=== PATIENT | female | born 1955 | race Caucasian/White ===

== ENCOUNTER 2016-08-21 12:24 | Inpatient (IN) | payer OTHER ==
[~2016-08-21] VITALS: Ht 172.7 cm; Wt 104.2 kg
[2016-08-21] VITALS (8 sets, daily range): BP systolic 145–170; BP diastolic 88–98; BMI 32.0
--- NOTE | ~2016-08-21 | HEMODYNAMI ---
PATIENT:MARK CASTREJON MEDICAL RECORD: [id number] : 57 LOCATION: D.2229 ADMISSION DATE: 08/21/16 Generatedon:09/03/201610:41 Patient name: MARK CASTREJON Patient #: [id number] SSN: : 1955 Date of study: 09/03/2016 Page: Of Hemodynamic Procedure Report Patient Data Patient Demographics Procedure consent was obtained First Name: MARK Gender: Female Last Name: LUCÍA : 1955 Middle Initial: A Age: 60 year(s) Patient #: [id number] Race: Unknown Additional ID: [id number] Contact details Address: [address] [place] [address] State: [place] City: [place] Zip code: [address] Admission Admission Data Admission Date: 08/21/2016 Admission Time: 18:22 Room #: D.2229 Procedure Procedure Types Cath Procedure Peripheral Cath Diagnostic Procedure Miscellaneous Procedure Description Procedure Date Procedure Date: 09/03/2016 Procedure Start Time: 10:24 Procedure Staff Name Function Thaddeus Whalen MD Performing Physician Justa Lin RT Scrub Dannielle Tellez RN Nurse William Mccoy RT Monitor Procedure Data Cath Procedure Fluoroscopy Diagnostic fluoroscopy Total fluoroscopy Time: 0.5 time: 0.5 min min Diagnostic fluoroscopy Total fluoroscopy dose: 127 dose: 127 mGy mGy Contrast Material Contrast Material Type Amount (ml) Isovue 300 36 Procedure Medications Medication Administration Route Dosage Oxygen NC 3 l/min Heparin Flush Bag added to field 2 bags (1000units/500ml NS) Lidocaine 1% added to field 20 Versed I.V. 1 mg Fentanyl I.V. 50 mcg Versed I.V. 1 mg Fentanyl I.V. 50 mcg Hemodynamics Rest Heart Rate: 93 (bpm) Snapshots Pre Cath Intra NCS Post Cath Vital Signs Time Heart Resp SPO2 NIBP Rhythm Pain Sedation Rate (ipm) (%) (mmHg) Status Level (bpm) 10:00:10 95 15 94 112/77(97) NSR 0 (11) 10(A) , No pain 10:04:18 94 16 94 110/73(90) NSR 0 (11) 10(A) , No pain 10:08:26 94 15 92 102/68(87) NSR 0 (11) 10(A) , No pain 10:12:30 93 13 93 100/70(87) NSR 0 (11) 10(A) , No pain 10:16:33 93 15 93 104/69(88) NSR 0 (11) 10(A) , No pain 10:20:39 91 12 93 99/70(85) NSR 0 (11) 9(A) , No pain 10:24:41 95 16 94 105/76(89) NSR 0 (11) 10(A) , No pain 10:28:46 93 14 94 106/74(90) NSR 0 (11) 9(A) , No pain 10:32:50 91 13 94 99/70(85) NSR 0 (11) 9(A) , No pain 10:36:52 93 16 95 104/75(85) NSR 0 (11) 10(A) , No pain Medications Time Medication Route Dose Verified Delivered Reason Notes Effe ctiveness by by 10:11:01 Oxygen NC 3 Dannielle Dannielle Per l/min King JOSHUA Tellez RN protocol 10:11:25 Heparin Flush added 2 Dannielle Dannielle used for Bag to bags King JOSHUA Tellez filler room attendant (1000units/500ml field NS) 10:11:34 Lidocaine 1% added 20ml Dannielle Dannielle for local to vial King JOSHUA Tellez RN anesthetic field 10:16:14 Versed I.V. 1 mg Dannielle Dannielle for King JOSHUA Tellez RN sedation 10:16:24 Fentanyl I.V. 50 Dannielle Dannielle for mcg King JOSHUA Tellez RN sedation 10:26:21 Versed I.V. 1 mg Dannielle Dannielle for King JOSHUA Tellez RN sedation 10:26:25 Fentanyl I.V. 50 Dannielle Dannielle for mcg King JOSHUA Tellez RN sedation Procedure Log Time Note 9:52:37 William Mccoy RT (R) (CV) sent for patient. Start room use. 9:52:48 Time tracking: Regular hours 9:52:57 Plan of Care:Hemodynamics will remain stable., Cardiac rhythm will remain stable., Comfort level will be maintained., Respiratory function will remain adequate., Patient/ family verbilizes understanding of procedure., Procedure tolerated without complication., Recovers from procedure without complications.. 9:53:03 Patient received from Med/Surg to IR Alert and oriented. Tansferred to table in Supine position. 9:53:04 Correct patient and procedure confirmed by team. 9:53:05 ECG and BP/O2 sat monitors applied to patient. 9:53:06 Signed procedure consent form obtained from patient. 9:53:08 Full Disclosure recording started 9:53:09 - 9:53:12 H&P Date Dictated: 09/03/2016 Within 30 days and on chart.. 9:53:13 Pre-procedure instructions explained to patient. 9:53:13 Pre-op teaching completed and patient verbalized understanding. 9:53:14 Family unavailable. 9:53:16 Patient NPO since Midnight. 9:53:22 Is the patient allergic to Iodine/contrast media? No. 9:53:28 Use device set IR Diagnostic 9:53:29 Sterile Angiographic Pack opened to sterile field. 9:53:30 Bag Decanter opened to sterile field. 9:59:12 Vital chart was started 10:00:18 Patient diabetic? Yes. 10:00:25 ----Pre-sedation anethsthesia assessment.---- 10:00:28 Previous problem with sedation/anesthesia? No ? 10:00:34 ACC The patient was administered the following blood thiners within the last 24 hours: ACCLovenox 10:00:40 Snore? Yes 10:00:43 Sleep apnea? No 10:00:46 Deviated septum? No 10:00:47 Opens mouth fully? Yes 10:00:48 Sticks out tongue? Yes 10:00:51 Airway obstruction? No ? 10:00:54 Dentures? No ? 10:00:59 Patient pain scale 0/10 no pain. 10:01:06 IV patent on arrival in left forearm with 0.9% NaCl at [facility]. 10:01:12 Alarms reviewed by RStephen N. 10:01:15 Right groin area was prepped with chlora-prep and draped in sterile fashion 10:05:53 Dr Whalen in to see patient. 10:09:08 Baseline sample Acquired. 10:09:11 Rhythm: sinus rhythm 10:11:01 Oxygen 3 l/min NC was administered by Dannielle Tellez RN; Per protocol; 10:11:25 Heparin Flush Bag (1000units/500ml NS) 2 bags added to field was administered by Dannielle Tellez RN; used for procedure; 10::34 Lidocaine 1% 20ml vial added to field was administered by Dannielle Tellez RN; for local anesthetic; 10:15:47 Physician arrived 10:15:48 --------ALL STOP TIME OUT------ 10:15:49 Final Timeout: patient, procedure, and site verified with staff and physician. All members of the team are in agreement. 10:15:53 Right groin site verified by team. 10:15:57 Physical assessment completed. ASA score P 3 - A patient with severe systemic disease as per Thaddeus Whalen MD. 10:16:03 Sedation plan: IV Moderate Sedation Versed, Fentanyl, Lidocaine 10:16:14 Versed 1 mg I.V. was administered by Dannielle Tellez RN; for sedation; 10:16:24 Fentanyl 50 mcg I.V. was administered by Dannielle Tellez RN; for sedation; 10:24:06 Procedure started. 10:24:11 Local anesthetic to right femoral vein with Lidocaine 1% by Thaddeus Whalen MD.INITIAL ACCESS ONLY 10:24:32 Micropuncture VSI 4FR kit opened to sterile field. 10:24:33 Cook DOC .035 guide wire opened to sterile field. 10:24:33 Bard CIRO Vena Cava Filter opened to sterile field. 10:26:21 Versed 1 mg I.V. was administered by Dannielle Tellez RN; for sedation; 10:26:25 Fentanyl 50 mcg I.V. was administered by Dannielle Tellez RN; for sedation; 10:33:12 Ciro Femoral IVC filter was placed below renal veins. 10:33:21 Procedure ended.(Physican Out) 10:34:13 Fluoroscopy time 00.50 minutes. 10:34:17 Fluoroscopy dose: 127 mGy 10:34:17 Flurop Dose total: 127 10:34:22 Contrast amount:Isovue 300 36ml. 10:34:25 Sharps counted by scrub and verified by R.N. 10:34:28 Insertion/operative site no bleeding no hematoma. 10:34:37 Post-op/insertion site Right Femoral vein dressed using a 4 x 4 and Tegaderm. 10:37:47 Post right femoral vein:stable 10:38:01 Post-procedure physical assessment completed. ASA score P 3 - A patient with severe systemic disease as per Thaddeus Whalen MD. 10:38:04 Post procedure rhythm: unchanged. 10:38:05 Post procedure instruction explained to patient.Patient verbalizes understanding. 10:38:06 Procedure and supply charges have been captured, reviewed, submitted an d are correct. 10:40:23 Report given to Med/Surg. 10:40:26 Patient transfered to Med/Surg with Bed. 10:41:15 Vital chart was stopped Device Usage Item Name Manufacture Quantity Catalog Hospital Part Current [facility] l Lot# / Number Charge Number Stock Stock Serial# Code Sterile [place] 1 [id number] 5 Angiographic Health Pack Bag Decanter Microtek 1 [id number] 5 [employer] Micropuncture VSI VASCULAR 1 [id number] 5 VSI 4FR kit SOLUTIONS Cook DOC .035 [employer] 1 [id number] 5 [id number] guide wire Bard CIRO Bard 1 [id number] 5 Vena Cava Filter Signature Audit Ruth Stage Time Signature Unsigned Intra-Procedure 09/03/2016 William 10:41:12 AM Nadine RT (R) (CV) Signatures Monitor : William Signature : Nadine RT Date : Time : [place] [address]
--- NOTE | ~2016-08-21 | HEMODYNAMI ---
PATIENT:MARK CASTREJON MEDICAL RECORD: [id number] : 57 LOCATION:[place] [address] ADMISSION DATE: 08/21/16 Generatedon:08/22/201614:41 Patient name: MARK CASTREJON Patient #: [id number] SSN: : 1955 Date of study: 08/22/2016 Page: Of Hemodynamic Procedure Report Patient Data Patient Demographics Procedure consent was obtained First Name: MARK Gender: Female Last Name: LUCÍA : 1955 Middle Initial: A Age: 60 year(s) Patient #: [id number] Race: Unknown Additional ID: [id number] Contact details Address: [address] [place] [address] State: [place] City: [place] Zip code: [address] Admission Admission Data Admission Date: 08/21/2016 Admission Time: 18:22 Room #: [facility] Procedure Procedure Types Cath Procedure Peripheral Cath Diagnostic Procedure Miscellaneous Lumbar Puncture Procedure Description Procedure Date Procedure Date: 08/22/2016 Procedure Start Time: 14:24 Procedure Staff Name Function Jasmeet Mai MD Performing Physician William Mccoy RT Scrub Dannielle Tellez RN Nurse Dannielle Tellez RN Monitor Procedure Data Cath Procedure Fluoroscopy Diagnostic fluoroscopy Total fluoroscopy Time: 0.4 time: 0.4 min min Diagnostic fluoroscopy Total fluoroscopy dose: dose: 6.26 mGy 6.26 mGy Procedure Medications Medication Administration Route Dosage Versed I.V. 1 mg Fentanyl 50 mcg Versed I.V. 1 mg Hemodynamics Rest Snapshots Pre Cath Intra NCS Post Cath Vital Signs Time Heart Resp SPO2 NIBP (mmHg) Rhythm Pain Sedation Rate (ipm) (%) Status Level (bpm) 14:02:26 98 145/102(135) NSR 7 (11) , 9(A) Very intense 14:06:46 112/99(111) NSR 7 (11) , 9(A) Very intense 14:10:45 99 No Cuff NSR 8 (11) , 9(A) Utterly horrible 14:15:11 85 17 98 150/101(125) NSR 8 (11) , 9(A) Utterly horrible 14:19:37 84 16 98 144/91(117) NSR 3 (11) , 9(A) Tolerable 14:24:01 82 16 98 143/93(119) NSR 0 (11) , 9(A) No pain 14:28:24 85 16 99 147/100(126) NSR 0 (11) , 9(A) No pain 14:32:48 84 16 98 146/100(126) NSR 0 (11) , 9(A) No pain 14:37:12 82 16 98 137/92(113) NSR 0 (11) , 9(A) No pain Medications Time Medication Route Dose Verified Delivered Reason Notes Effectivene ss by by 14:16:12 Versed I.V. 1 mg Dannielle Dannielle for King JOSHUA Tellez RN sedation 14:16:42 Fentanyl 50 Dannielle Dannielle for mcg King JOSHUA Tellez RN sedation 14:21:31 Versed I.V. 1 mg Dannielle Dannielle for King JOSHUA Tellez RN sedation Procedure Log Time Note 13:37:55 Dannielle Tellez RN sent for patient. Start room use. 13:37:58 Time tracking: Regular hours 13:38:08 Plan of Care:Hemodynamics will remain stable., Cardiac rhythm will remain stable., Comfort level will be maintained., Respiratory function will remain adequate., Patient/ family verbilizes understanding of procedure., Procedure tolerated without complication., Recovers from procedure without complications.. 14:00:16 Patient received from ICU to Ir agitated and decreased mental status . Tansferred to table in Prone position. 14:00:57 Vital chart was started 14:00:58 Baseline sample Acquired. 14:01:02 Correct patient and procedure confirmed by team. 14:01:11 Signed procedure consent form obtained from spouse. 14:01:13 ECG and BP/O2 sat monitors applied to patient. 14:01:15 Full Disclosure recording started 14:01:16 - 14::44 Unable to provide pre-op teaching due to educational barrier. agitated state and decrease mental status 14::50 Family in waiting room. 14::52 Patient NPO since Midnight. 14:02:19 unable to get pre sedation answers from pt 14:02:36 IV patent on arrival in right antecubital with 0.9% NaCl at O. 14:14:50 Physician arrived 14::51 --------ALL STOP TIME OUT------ 14::52 Final Timeout: patient, procedure, and site verified with staff and physician. All members of the team are in agreement. 14:15:02 Lumbar site verified by team. 14:15:07 Physical assessment completed. ASA score P 3 - A patient with severe systemic disease as per Jasmeet Mai MD. 14:15:11 Sedation plan: IV Moderate Sedation Versed, Fentanyl 14:16:12 Versed 1 mg I.V. was given by Dannielle Tellez RN; for sedation; 14:16:42 Fentanyl 50 mcg was given by Dannielle Tellez RN; for sedation; 14:21:31 Versed 1 mg I.V. was given by Dannielle Tellez RN; for sedation; 14:23:38 Procedure started. 14:24:29 Local anesthetic to Lumbar area with Lidocaine 1% by Jasmeet Mai MD.INITIAL ACCESS ONLY 14:29:02 Opening pressure is 25 14:37:39 Procedure ended.(Physican Out) 14:38:51 Fluoroscopy time 00.40 minutes. 14:38:56 Fluoroscopy dose: 6.26 mGy 14:38:56 Flurop Dose total: 6.26 14:38:59 Sharps counted by scrub and verified by R.N. 14:39:21 Insertion/operative site no bleeding no hematoma. 14:39:31 Post Lumbar area:stable 14:39:40 bandaid applied 14:39:52 Post-procedure physical assessment completed. ASA score P 3 - A patient with severe systemic disease as per Jasmeet Mai MD. 14:39:56 Post procedure rhythm: unchanged. 14:40:04 Post procedure instruction explained to patient.Patient verbalizes understanding. 14:40:05 Procedure and supply charges have been captured, reviewed, submitted an d are correct. 14:40:09 Report given to ICU. 14:40:16 Patient transfered to ICU with Bed. 14:41:12 Vital chart was stopped Signature Audit [place] Stage Time Signature Unsigned Intra-Procedure 08/22/2016 William 2:41:10 PM [facility] RT (R) (CV) Signatures Monitor : Dannielle Tellez RN Signature : Date : Time : [facility] [address] [place] [address]
--- NOTE | ~2016-08-21 | HEMODYNAMI ---
PATIENT:MARK CASTREJON MEDICAL RECORD: [id number] : 57 LOCATION:D.MS [id number] ADMISSION DATE: 08/21/16 Generatedon:09/18/201612:32 Patient name: MARK CASTREJON Patient #: [id number] SSN: : 1955 Date of study: 09/18/2016 Page: Of Hemodynamic Procedure Report Patient Data Patient Demographics Procedure consent was obtained First Name: MARK Gender: Female Last Name: LUCÍA : 1955 Middle Initial: A Age: 60 year(s) Patient #: [id number] Race: Unknown Additional ID: [id number] Contact details [address]: [address] [place] [address] State: [place] City: [place] Zip code: [address] Admission Admission Data Admission Date: 08/21/2016 Admission Time: 18:22 Room #: D.2214 Procedure Procedure Types Cath Procedure Peripheral Cath Diagnostic Procedure Miscellaneous Procedure Description Procedure Date Procedure Date: 09/18/2016 Procedure Start Time: 11:35 Procedure Staff Name Function Ray Singh MD Performing Physician Justa Lin RT Scrub Dipti Nevarez RN Nurse William Mccoy RT Monitor Procedure Data Cath Procedure Fluoroscopy Diagnostic fluoroscopy Total fluoroscopy Time: time: 15.5 min 15.5 min Diagnostic fluoroscopy Total fluoroscopy dose: 537 dose: 537 mGy mGy Contrast Material Contrast Material Type Amount (ml) Isovue 300 162 Diagnostic catheters Device Type Used For End Catheter Placement Merit ULTRA BOLUS FLUSH 5Fr 90CM catheter Cook HN5 5F/100CM catheter Procedure Medications Medication Administration Route Dosage Versed I.V. 1 mg Fentanyl I.V. 50 mcg Hemodynamics Rest Heart Rate: 109 (bpm) Snapshots Pre Cath Intra NCS Post Cath Vital Signs Time Heart Resp SPO2 NIBP Rhythm Pain Sedation Rate (ipm) (%) (mmHg) Status Level (bpm) 11:25:35 109 24 94 88/52(67) NSR 0 (11) 10(A) , No pain 11:29:43 111 23 95 91/59(74) NSR 0 (11) 10(A) , No pain 11:33:53 110 24 98 89/53(66) NSR 0 (11) 10(A) , No pain 11:38:05 110 22 96 83/52(63) NSR 0 (11) 10(A) , No pain 11:42:13 105 18 98 93/53(71) NSR 0 (11) 10(A) , No pain 11:46:08 109 22 97 104/60(80) NSR 0 (11) 10(A) , No pain 11:50:24 107 19 96 86/51(68) NSR 0 (11) 10(A) , No pain 11:54:36 110 21 92 92/49(64) NSR 0 (11) 10(A) , No pain 11:58:44 111 24 97 83/69(78) NSR 0 (11) 10(A) , No pain 12:02:44 105 22 96 No Cuff NSR 0 (11) 10(A) , No pain 12:07:06 105 20 96 136/54(79) NSR 0 (11) 10(A) , No pain 12:12:05 105 23 97 Measuring NSR 0 (11) 10(A) , No pain 12:12:25 104 26 96 149/52(91) NSR 0 (11) 10(A) , No pain 12:16:52 104 19 96 135/53(84) NSR 0 (11) 10(A) , No pain 12:21:14 104 22 96 136/55(87) NSR 0 (11) 10(A) , No pain 12:25:38 104 24 97 150/55(84) NSR 0 (11) 10(A) , No pain 12:29:54 104 20 97 136/57(82) NSR 0 (11) 10(A) , No pain Medications Time Medication Route Dose Verified Delivered Reason Notes Effectivene ss by by 12:09:38 Fentanyl I.V. 50 Dipti Dipti for mcg Roque Roque sedation RN RN 12:09:52 Versed I.V. 1 mg Dipti Dipti for Roque Roque sedation RN glue mounter operator Log Time Note 11:11:12 William Mccoy RT (R) (CV) sent for patient. Start room use. 11:11:20 Time tracking: Regular hours 11:11:27 Patient received from Med/Surg to IR Alert and oriented. Tansferred to table in Supine position. 11:11:32 Correct patient and procedure confirmed by team. 11:11:32 ECG and BP/O2 sat monitors applied to patient. 11:11:34 Signed procedure consent form obtained from patient. 11:11:36 Full Disclosure recording started 11:11:36 - 11:11:40 H&P Date Dictated: 09/18/2016 Within 30 days and on chart.. 11:11:42 Pre-procedure instructions explained to patient. 11:11:42 Pre-op teaching completed and patient verbalized understanding. 11:11:44 Family in waiting room. 11:11:45 Patient NPO since Midnight. 11:11:50 Is patient on blood thinner?No 11:11:53 Patient diabetic? No. 11:11:53 - 11:11:54 ----Pre-sedation anethsthesia assessment.---- 11:12:01 Previous problem with sedation/anesthesia? No ? 11:12:02 Snore? Yes 11:12:05 Sleep apnea? Yes 11:12:06 Deviated septum? No 11:12:07 Opens mouth fully? Yes 11:12:08 Sticks out tongue? No 11:12:16 Airway obstruction? No ? 11:12:20 Dentures? No ? 11:22:59 Pre procedure: right dorsailis pedis pulse 1+ Palpable, but thready & weak; easily obliterated 11:23:03 Pre procedure: right posterior tibial pulse 1+ Palpable, but thready & weak; easily obliterated 11:23:10 Patient pain scale 0/10 no pain. 11:23:18 IV patent on arrival in right antecubital with 0.9% NaCl at [facility]. 11:23:24 Use device set IR Diagnostic 11:23:25 Sterile Angiographic Pack opened to sterile field. 11:23:25 Bag Decanter opened to sterile field. 11:23:26 Acist Manifold opened to sterile field. 11::27 Acist Syringe opened to sterile field. 11::27 Acist Hand Control opened to sterile field. 11:23:36 Sharps counted by scrub and verified by R.N. 11:23:38 Alarms reviewed by R. N. 11::41 Right groin area was prepped with chlora-prep and draped in sterile fashion 11:24:20 Baseline sample Acquired. 11:24:20 Vital chart was started 11:24:26 Rhythm: sinus tachycardia 11:34:15 Physician arrived 11:34:16 --------ALL STOP TIME OUT------ 11:34:17 Final Timeout: patient, procedure, and site verified with staff and physician. All members of the team are in agreement. 11:34:20 Right groin site verified by team. 11:34:28 Physical assessment completed. ASA score P 3 - A patient with severe systemic disease as per Ray Singh MD. 11:34:31 Sedation plan: IV Moderate Sedation Versed, Fentanyl 11:34:59 Procedure started. 11:35:02 Local anesthetic to right femoral artery with Lidocaine 1% by Ray Singh MD.INITIAL ACCESS ONLY 11:35:31 St Billy 5FR Sheath opened to sterile field. 11:35:31 Catchpoint Systems DOC .035 guide wire opened to sterile field. 11:35:32 PERCUTANEOUS ENTRY 19GA needle opened to sterile field. 11:35:32 TUBING, CONTRAST INJCTN HI PRES opened to sterile field. 11:35:36 A M_SOLUTION ULTRA BOLUS FLUSH 5Fr 90CM catheter was advanced over the wire and used for . 11:37:24 A Catchpoint Systems HN5 5F/100CM catheter was advanced over the wire and used for . 11:39:13 Terumo ANGLE 180L glide wire opened to sterile field. 11:39:21 Terumo TORQUE DEVICE PLASTIC .038 opened to sterile field. 11:43:22 Terumo ANGLED SS 260CM glide wire opened to sterile field. 11:51:23 Terumo 5FR Able Bodied Seaman H1 100CM glide catheter opened to sterile field. 11:59:50 Terumo 5FR ANGLED 100CM glide catheter opened to sterile field. 12:03:41 Terumo 5FR BARNES 2 100CM glide catheter opened to sterile field. 12:09:38 Fentanyl 50 mcg I.V. was administered by Dipti Nevarez RN; for sedation; 12:09:52 Versed 1 mg I.V. was administered by Dipti Nevarez RN; for sedation; 12:16:33 ANGIOSEAL-VIP PLUS 6 FR opened to sterile field. 12:16:54 Procedure ended.(Physican Out) 12:17:48 Fluoroscopy time 15.50 minutes. 12:18:25 Fluoroscopy dose: 537 mGy 12:18:25 Flurop Dose total: 537 12:21:32 Contrast amount:Isovue 300 162ml. 12:21:34 Sharps counted by scrub and verified by R.N. 12:21:37 Insertion/operative site no bleeding no hematoma. 12:21:42 Post-op/insertion site Right Femoral artery dressed using a 4 x 4 and Tegaderm. 12:21:45 Post right femoral artery:stable 12:21:47 Post Procedure Pulses reassessed and unchanged 12:21:50 Post-procedure physical assessment completed. ASA score P 3 - A patient with severe systemic disease as per Ray Singh MD. 12:21:52 Post procedure instruction explained to patient.Patient verbalizes understanding. 12:21:53 Procedure and supply charges have been captured, reviewed, submitted an d are correct. 12:31:30 Report given to Med/Surg. 12:31:33 Patient transfered to Med/Surg with Bed. 12:32:10 Vital chart was stopped Device Usage Item Name Manufacture Quantity Catalog Number Hospital Part Current Min imal Lot# / Charge Number Stock Stock Serial# Code Sterile Cardinal 1 [id number] [id number] 5 Angiographic Health Pack Bag Decanter Microtek 1 [id number] 98377 [id number] 5 Medical Inc. Acist Acist 1 77422 930194 378742 488840 5 Manifold Medical Systems Inc Acist Syringe Acist 1 06767 121896 421843 430434 20 Medical Systems Inc Acist Hand Acist 1 32531 180198 592120 856191 5 [address] Medical [address] Billy [address]FR St Billy 1 318233 920203 678543 5 [id number] Sheath Cook DOC .035 Cook Medical 1 [id number] 569041 494612 5 [id number] guide wire PERCUTANEOUS Cook Medical 1 [id number] 342954 049455 5 [id number] ENTRY 19GA needle TUBING, Merit 1 [id number] 649383 985724 334427 5 CONTRAST Medical INJCTN HI PRES Merit ULTRA Merit 1 [id number] 764989 143444 5 BOLUS FLUSH Medical 5Fr 90CM catheter Cook HN5 Cook Medical 1 [id number] 353075 538719 2 5F/100CM catheter Terumo ANGLE Terumo 1 [id number] 065109 029330 795922 5 180L glide wire Terumo TORQUE Landrum 1 TD01 125728 948508 628793 5 DEVICE Scientific PLASTIC .038 Terumo ANGLED Terumo 1 [id number] 736647 392342 917068 5 SS 260CM glide wire Terumo 5FR Landrum 1 CG513 514544 003670 5 Able Bodied Seaman H1 Scientific 100CM glide catheter Terumo 5FR Terumo 1 CG508 780442 95734 860644 4 ANGLED 100CM glide catheter Terumo 5FR Terumo 1 CG511 900240 263533 5 BARNES 2 100CM glide catheter ANGIOSEAL-[facility]IP St Billy 1 917821 335227 033437 5 [id number] PLUS 6 FR Signature Audit [place] Stage Time Signature Unsigned Intra-Procedure 09/18/2016 William 12:32:08 PM Shuffield RT (R) (CV) Signatures Monitor : William Signature : Nadine RT Date : Time : [facility] [address] [facility] [address]
[2016-08-21 13:37] LABS: BASOPHILS 0.1 % (0.0-2.0); EOSINOPHILS 3.2 % (0-7); HEMATOCRIT 37.1 % (36.0-48.0); HEMOGLOBIN 10.9 g/dL (12-16); IMMATURE GRANULOCYTES 0.3 % (0-5); LYMPHOCYTES 11.9 % (15-50); MCH 25.2 pg (26.0-34.0); MCHC 29.4 g/dL (31.0-37.0); MCV 85.7 fL (80.0-100.0); MEAN PLATELET VOLUME 9.3 fL (7.4-10.4); MONOCYTES 10.5 % (2-11); PLATELET COUNT 193 10x3/uL (130-400); RBC 4.33 10x6/uL (4.00-5.40); RDW 19.8 % (11.5-14.5); WBC 14.6 10x3/uL (4.8-10.8)
[2016-08-21 13:57] LABS: ALBUMIN 3.2 g/dL (3.4-5.0); ALKALINE PHOSPHATASE 53 U/L (46-116); ALT (SGPT) 26 U/L (10-68); BILIRUBIN - TOTAL 0.36 mg/dL (0.2-1.3); CALC OSMOLALITY 284 mosm/kg (275-300); CALCIUM 8.7 mg/dL (8.5-10.1); CHLORIDE - SERUM 105 mmol/L (98-107); CREATININE - SERUM 0.7 mg/dL (0.6-1.3); GLUCOSE 107 mg/dL (74-106); POTASSIUM - SERUM 3.8 mmol/L (3.5-5.1); PROTEIN - SERUM 7.4 g/dL (6.4-8.2); SODIUM 142 mmol/L (136-145); UREA NITROGEN 17 mg/dL (7-18); eGFR NON AFRICAN AMERICAN > 90 mL/min (90-120)
[2016-08-21 17:02] LABS: APPEARANCE CLEAR (CLEAR); BILIRUBIN NEGATIVE (NEGATIVE); COLOR YELLOW (YELLOW); GLUCOSE NEGATIVE (NEGATIVE); KETONE NEGATIVE (NEGATIVE); LEUKOCYTE ESTERASE NEGATIVE (NEGATIVE); NITRITE NEGATIVE (NEGATIVE); PROTEIN NEGATIVE (NEGATIVE)
[2016-08-21 17:03] LABS: BACTERIA NONE SEEN /hpf (NONE SEEN); EPITHELIAL CELLS NSEEN /hpf (0-5); RED CELLS - URINE 0-5 /hpf (0-5); WHITE CELLS - URINE NSEEN /hpf (0-5)
--- NOTE | 2016-08-21 20:45 | NUR ---
ASSISTED WITH CALL FOR HELP TO MRI. DR. PERAZA PRESENT AND ER NURSE PRESENT TO TAKE NEW ORDERS. PT TO ROOM 2207 PER ORDERS. FAMILY PRESENT TO REVIEW HOME MEDS. NEW ORDER TO TRANSFER TO CV 04. VITALS AT 2049 - 162/100, HR 92. FSBS 153. TRANSFERRED VIA BED TO CV 04 AT 2125. 2 OF PT FAMILY ROOMS EXPRESSED DISPLEASURE WITH "YOUR ER TAKING 6HR TO DO ANYTHING, AND NOW YOUR LOCKING US OUT OF ROOM". EXPLAINED ICU POLICY AND VISITATION SCHEDULE.
[2016-08-21] MEDS ORDERED: KLOR-CON 1010 MEQ PO (20:51)
[2016-08-21] MEDS ORDERED: PRINIVIL20 MG (20:54)
[2016-08-21] MEDS ORDERED: ULTRAM50 MG PO (20:55)
[2016-08-21] MEDS ORDERED: GLUCOPHAGE500 MG PO (20:56)
[2016-08-21] MEDS ORDERED: CALAN SR240 MG PO (20:57)
[2016-08-21] MEDS ORDERED: TOPROL XL100 MG PO (20:58)
[2016-08-21] MEDS ORDERED: OMEPRAZOLE20 M1 PO (20:59)
[2016-08-21] MEDS ORDERED: LYRICA150 MG PO (20:59)
[2016-08-21] MEDS ORDERED: LIPITOR20 MG PO (20:59)
[2016-08-21] MEDS ORDERED: RESTORIL15 MG PO (21:00)
[2016-08-21] MEDS ORDERED: LEXAPRO10 MG PO (21:00)
[2016-08-21] MEDS ORDERED: FERROUS SULFAT325 MG PO (21:01)
[2016-08-21] MEDS ORDERED: FOLIC ACID1 MG PO (21:01)
[2016-08-21] MEDS ORDERED: SKELAXIN800 MG PO (21:01)
[2016-08-21] MEDS ORDERED: PLAQUENIL200 MG PO (21:02)
[2016-08-21] MEDS ORDERED: PREDNISONE5 MG PO (21:02)
--- NOTE | 2016-08-21 21:35 | NUR ---
DR. WISE PAGED. 8701 PT STATUS, VITAL SIGNS, NEURO AND C/O HAAS REPORTED - NEW ORDERS REC'D. AT BS AND NOTIFIED.
--- NOTE | 2016-08-21 21:35 | NUR ---
PT ARRIVED FROM MRI AFTER SEIZURE. FAMILY REPORTS PT HAS NEVER HAD SEIZURE BEFORE. RIGHT HAND IV NOT PATENT. RESITED 20 G TO RIGHT AC BY [place]. HOME MEDS REVIEWED WITH FAMILY. TRANSFERRED PT TO CV-ICU PER ORDERS.
--- NOTE | 2016-08-21 21:50 | NUR ---
17F F/C INSERTED USING STERILE TECHNIQUE X 1 ATTEMPT. IMMEDIATE RETURN OF CLEAR YELLOW URINE. TUBING CLAMPED AT 350CC TO RELEASE IN 15 MIN. PT IMMEDIATELY STOPPED THE CONSTANT MOANING SHE HAD BEEN DOING IN EVIDENT RELIEF. SPECIMEN SENT TO LAB FOR ANALYSIS PER PROTOCOL
--- NOTE | 2016-08-21 22:29 | NUR ---
AT BS, ADMISSION HX AND PHYSICAL COMPLETE - SISTER ALLOWED BACK AND PASSWORD SET UP.
--- NOTE | 2016-08-21 22:30 | NUR ---
PT'S HISTORY OBTAINED FROM SPOUSE. UNCLEAR ABOUT RENAL STATUS. HE TOLD CONFUSING HISTORY OF RENAL PROBLEMS BUT WHEN QUESTIONED DIRECTLY DENIED YOSEF RENAL HISTORY. HE STATES DR. LAUREANO IS AWARE OF HER HISTORY. ALL OTHER HISTORY OBTAINED SATISFACTORILY. STATES PT HAS BEEN CONTINENT OF URINE UP UNTIL 3 DAYS AGO WHEN SHE BEGAN TO C/O TINGLING IN LEFT HAND AND AT THAT TIME BEGAN TO HAVE URGENCY INCONTINENCE. STATES PT BEGAN TO HAVE SYMPTOMS 3-4 DAYS AGO HE EXPLAINED REACHING TOWARD THINGS THAT WEREN'T THERE AND NOT SEEING THINGS DIRECTLY IN FRONT OF HER. STATES HE WAS ABSENT FROM THE HOME AT WORK FOR 48 HOURS AND WHEN ARRIVED AT HOME THIS MORNING PT WAS UNABLE TO MAKE BREAKFAST AND THEN UNABLE TO FEED SELF. STATES HE CALLED DR. LAUREANO AND WAS TOLD TO TAKE TO ER FOR CT SCAN. STATES THE SEIZURE PT HAD TONIGHT JUST AFTER HAVING A MRI WAS A NEW DEVELOPMENT FOR PT. SPOUSE ALSO STATES PT USES A CPAP MACHINE AT HOME AND TAKES NEBULIZER TREATMENTS. SPOUSE TO BRING CPAP MACHINE TO HOSPITAL IN AM. ALL BELONGINGS AND MEDICATIONS BAGGED AND SENT WITH SPOUSE.
[2016-08-21 23:10] LABS: APPEARANCE CLEAR (CLEAR); BILIRUBIN NEGATIVE (NEGATIVE); COLOR YELLOW (YELLOW); GLUCOSE NEGATIVE (NEGATIVE); KETONE NEGATIVE (NEGATIVE); LEUKOCYTE ESTERASE NEGATIVE (NEGATIVE); NITRITE NEGATIVE (NEGATIVE); PROTEIN TRACE mg/dL (NEGATIVE); SPECIFIC GRAVITY 1.015 (1.005-1.020); UROBILINOGEN NORMAL (NORMAL)
[2016-08-21 23:11] LABS: RED CELLS - URINE RARE /hpf (0-5); WHITE CELLS - URINE NSEEN /hpf (0-5)
--- NOTE | 2016-08-21 23:43 | NUR ---
SISTER AT BEDSIDE PT TALKING WITH HER. PT AWARE OF YEAR, , NAME SPOUSE NAME BUT CONFUSED ABOUT WHERE SHE IS AND WHY. DENIES PAIN WHEN ASKED PT TO OPEN EYES STATES OK REPEATEDLY BUT WOULD NOT OPEN. DID OPEN SPONTANEOUSLY WHEN SISTER SPOKE WITH HER
[2016-08-22] VITALS (27 sets, daily range): BP systolic 105–167; BP diastolic 68–120; BMI 32.0
--- NOTE | 2016-08-22 01:00 | NUR ---
NEURO STATUS UNCHANGED
--- NOTE | 2016-08-22 02:15 | NUR ---
PT GIVEN ZOFRAN DOCUMENTED ON AUG FOR NAUSEA. PT HAS HAD NO EMESIS. SISTERS ALLOWED BACK TO SEE PT WHILE SHE IS AWAKE. PT TALKED WITH THEM VERY LIMITED.
--- NOTE | 2016-08-22 04:00 | NUR ---
NEURO ASSESSMENT COMPLETED. PT INCREASED FRETFUL. REPEATED PROMPTINGS YIELD "OK" WITHOUT FOLLOWTHROUGH OF CORRECT RESPONSE FROM PT. NO OTHER CHANGES NOTED. PT DOES DENY PAIN WHEN ASKED. REPOSITIONED IN BED WITH EXTREMETIES ELEVATED AND HEELS FLOATED
--- NOTE | 2016-08-22 05:00 | NUR ---
PT REIDRECTABLE STATES NAMES MARK. WHEN ASKED WHY SHE WAS MOANING AND IF SHE WAS HURTING PT STATED "NO" (TO PAIN) AND "I DON'T KNOW" TO WHY SHE WAS MOANING. WHEN REPEATEDLY ASKED WHAT YEAR IT WAS PT FINALLY STATED "I CANT SAY THAT" SPEECH CLEAR WITH DIRECT QUESTIONS AND GARBLED WHEN MAONING AND MUMBLING.
--- NOTE | 2016-08-22 06:17 | NUR ---
NO SEIZURES THIS SHIFT
[2016-08-22 06:18] LABS: BASOPHILS 0.1 % (0.0-2.0); HEMATOCRIT 37.9 % (36.0-48.0); HEMOGLOBIN 11.5 g/dL (12-16); IMMATURE GRANULOCYTES 0.3 % (0-5); LYMPHOCYTES 10.3 % (15-50); MCH 25.5 pg (26.0-34.0); MCHC 30.3 g/dL (31.0-37.0); MEAN PLATELET VOLUME 9.2 fL (7.4-10.4); NEUTROPHILS 77.3 % (40-80); PLATELET COUNT 207 10x3/uL (130-400); RBC 4.51 10x6/uL (4.00-5.40); RDW 19.5 % (11.5-14.5); WBC 17.2 10x3/uL (4.8-10.8)
--- NOTE | 2016-08-22 06:49 | NUR ---
DR. WISE HERE. UPDATE GIVEN TO HIM. SPOUSE AT BEDSIDE TO ANSWER QUESTIONS FOR SPOUSE
[2016-08-22 06:50] LABS: ALBUMIN 3.3 g/dL (3.4-5.0); ALKALINE PHOSPHATASE 69 U/L (46-116); ALT (SGPT) 26 U/L (10-68); CALC OSMOLALITY 267 mosm/kg (275-300); CALCIUM 9.2 mg/dL (8.5-10.1); CHLORIDE - SERUM 95 mmol/L (98-107); CREATININE - SERUM 0.4 mg/dL (0.6-1.3); GLUCOSE 150 mg/dL (74-106); PROTEIN - SERUM 8.1 g/dL (6.4-8.2); SODIUM 133 mmol/L (136-145); UREA NITROGEN 9 mg/dL (7-18); eGFR NON AFRICAN AMERICAN > 90 mL/min (90-120)
[2016-08-22 10:55] LABS: APTT 31.7 SECONDS (22.8-39.4); INR 1.09 (0.85-1.17)
--- NOTE | 2016-08-22 11:43 | NUR ---
0730-RECIEVED PER FLOW SHEETDR RAISA AT BEDSIDE-DIRECTED TO GIVE TRAMADOL PO FOR CONTINUOUS CRYING AND MOANING-LARGE FAMILY AT BEDSIDE AND REQUESTING PT RA AND FIBROMALAGIA PAIN MEDICINE TO BE RETURNED -INFORMED SAME DUE TO MARKED NUERO CHANGES NOT SAFE AT THIS TIME-PT NOT ABLE TO STATE ANY WORDS-AVOIDS PUPIL CHECK WITH LIGHT-ATTEMPTING TO CLIMB OUT OF L SIDE OF BED ONLY 0800-FAMILY WITH EXCEPTION OF SENT OUT- REMAINS WITH PT TO PREVENT THE NEED FOR RESTRAINTS-R AC SALINE LOCKED
--- NOTE | 2016-08-22 11:55 | NUR ---
1030-LAB AT BEDSIDE-BLOOD CULTURES DRAWN-URINE CULTURE SENT
--- NOTE | 2016-08-22 11:56 | NUR ---
LIQUEFIED PETROLEUM GASFITTER AT [facility]-ATTEMPTING PLACE LEAD WIRES FOR EEG PROCEDURE-NOTED NIBP INCREASED TO 174/113-DR WISE NOTIFIED OF SAME-KBRN
--- NOTE | 2016-08-22 12:27 | NUR ---
CONTINUING TO ATTEMPT EEG-DR WISE MADE AWARE OF NIBP-ORDER REICEVED AND NOTED-KCL RIDER INFUSING ORDERED
--- NOTE | 2016-08-22 14:37 | NUR ---
1400-PT TO SPECIALS WITH O2 INFUSING AT 2L FLOOR COVERING PRINTER ASSISTANT--FAMILY ACCOMPANIED PT AND TEAM-REPORT CALLED FOR TRANSFER TO 2301
--- NOTE | 2016-08-22 15:12 | NUR ---
PATIENT HERE FROM [place]. SHE MOANS WHEN TOUCHED OR MOVED, DOES NOT OPEN HER EYES OR VERBALIZE WORDS. SHE WAS SET UP IN ROOM ON MONITORS, ELECTROLYTE REPLACEMENT OF POTASSIUM STILL IN PROGRESS PER PROTOCOL. ASSESSMENT COMPLETED. WILL MONITOR. JOSHUA BUSTAMANTE TO FIND THE FAMILY
[2016-08-22 15:38] LABS: GLUCOSE - CSF 76 MG/DL (40-75); PROTEIN - CSF 61 MG/DL (12-60)
[2016-08-22 15:42] LABS: APPEARANCE - CSF CLEAR
[2016-08-22 15:43] LABS: RBC - CSF 24 cmm (0-0)
--- NOTE | 2016-08-22 16:36 | NUR ---
PATIENTS B/P 155/120, HYDRALAZINE IV GIVEN PER PRN ORDER
--- NOTE | 2016-08-22 16:38 | NUR ---
CALL PLACED TO DR KLINE'S OFFICE TO GIVE THE RESULTS OF THE LUMBAR PUNCTURE. WILL WAIT FOR RETURN CALL.
--- NOTE | 2016-08-22 16:39 | NUR ---
SPOKE WITH DR KLINE, RESULTS GIVEN. HE STATED, "GOOD, THEN SHE IS NOT INFECTED". WOULD LIKE RESULTS OF CTA CALLED TO HIM IF RESULTED THIS EVENING.
--- NOTE | 2016-08-22 16:54 | NUR ---
CALL WAS PLACED TO DR KLINE SECONDARY TO PATIENT MOANING, AND FIDGETING IN THE BED. FAMILY CONCERNED, THEY DO NOT WANT HER TO GO THROUGHT ANOTHER NIGHT LIKE THIS. AFTER DISCUSSING WITH HIM, NEW ORDER RECEIVED FOR ONE TIME DOSE FOR DILAUDID AND HE REQUESTED TO BE NOTIFIED HOW SHE DOES.
--- NOTE | 2016-08-22 19:30 | NUR ---
REPORT RECEIVED AND CARE ASSUMED. LYING SUPINE IN BED WITH EYES CLOSED. NO DISTRESS NOTED AT THIS TIME. RIGHT ARM AC IV PATENT WITH NS AT 50 CC/HR. VITAL SIGN STABLE. O2 AT 3L/NC WITH O2 SAT @ 94%/ REBOLLEDO CATHETER PATENT WITH DEMARIO COLOR URINE. SEE ASSESSMENT FLOW SHEET FOR ALL DETAILS. WILL CONTINUE TO MONITOR.
--- NOTE | 2016-08-22 20:36 | NUR ---
SPOKE TO DR KLINE REGARDING CT REPORT. NEW ORDERS RECEIVED.
--- NOTE | 2016-08-22 22:25 | NUR ---
LAB HERE TO DRAW POTASSIUM.
--- NOTE | 2016-08-22 22:33 | NUR ---
MOANING OUT LOUDLY AND GETTING RESTLESS- DILAUDID 2 MG IVP GIVEN SLOWLY.
[2016-08-23] VITALS (24 sets, daily range): BP systolic 100–195; BP diastolic 69–131
--- NOTE | 2016-08-23 02:00 | NUR ---
REPOSITIONED ON RIGHT SIDE. NO DISTRESS NOTED.
[2016-08-23 04:10] LABS: BASOPHILS 0.1 % (0.0-2.0); EOSINOPHILS 0.1 % (0-7); HEMATOCRIT 42.4 % (36.0-48.0); HEMOGLOBIN 13.1 g/dL (12-16); IMMATURE GRANULOCYTES 0.3 % (0-5); LYMPHOCYTES 3.3 % (15-50); MCH 25.5 pg (26.0-34.0); MCHC 30.9 g/dL (31.0-37.0); MCV 82.5 fL (80.0-100.0); MEAN PLATELET VOLUME 9.2 fL (7.4-10.4); MONOCYTES 1.2 % (2-11); PLATELET COUNT 179 10x3/uL (130-400); RBC 5.14 10x6/uL (4.00-5.40); RDW 19.2 % (11.5-14.5); WBC 14.6 10x3/uL (4.8-10.8)
--- NOTE | 2016-08-23 04:10 | NUR ---
ASSISTED WINDER TENDER WITH DRAWING AM LABS. RESTLESS AND MOVING LEGS A LOT. DILAUDIS 2 MG IVP GIVEN FOR DISCOMFORT.
[2016-08-23 04:24] LABS: ALBUMIN 3.1 g/dL (3.4-5.0); ALKALINE PHOSPHATASE 71 U/L (46-116); ALT (SGPT) 25 U/L (10-68); CARBON DIOXIDE 26.4 mmol/L (21.0-32.0); CHLORIDE - SERUM 93 mmol/L (98-107); GLUCOSE 162 mg/dL (74-106); PROTEIN - SERUM 7.7 g/dL (6.4-8.2); SODIUM 131 mmol/L (136-145)
[2016-08-23 04:28] LABS: CALC OSMOLALITY 266 mosm/kg (275-300); CREATININE - SERUM 0.6 mg/dL (0.6-1.3); UREA NITROGEN 12 mg/dL (7-18); eGFR NON AFRICAN AMERICAN > 90 mL/min (90-120)
--- NOTE | 2016-08-23 05:56 | NUR ---
NO SEIZURE ACTIVITY THIS SHIFT.
--- NOTE | 2016-08-23 08:24 | NUR ---
OLD IV TO RIGHT AC NOTED LEAKING AND NO LONGER USABLE. NEW IV PLACED TO LEFT FOREARM, 20G. FLUSHES WELL. NO ACUTE DISTRESS NOTED. PT NOTED TO MOAN AND COUGH. PT DOES NOT FOLLOW COMMANDS. PT WILL SAY "OKAY" OCCASIONALLY WHEN SPOKEN TO. WILL CONTINUE PLAN OF CARE.
--- NOTE | 2016-08-23 09:31 | NUR ---
FAMILY AT BEDSIDE, UPDATE GIVEN. NOTED FAMILY STATES PT RHUMATOLOGIST IS MACRINA SANDOVAL FROM [facility] [employer]. DR COX IS AT BEDSIDE ALSO GIVING UPDATE TO PT FAMILY. NO ACUTE DISTRESS NOTED. WILL CONTINUE PLAN OF CARE.
--- NOTE | 2016-08-23 11:03 | NUR ---
LYING IN BED AT THIS TIEM. NO ACUTE DISTRESS NOTED. RESPIRATIONS AT STEADY AND UNLABORED RATE. AWAKENS EASILY WHEN STAFF STATES PT NAME. WILL CONTINUE PLAN OF CARE.
--- NOTE | 2016-08-23 11:54 | NUR ---
BP NOTED AT 193/114, PRN LABETOLOL ADMIN AT THIS TIME FOR HYPERTENSION. WILL CONTINUE PLAN OF CARE.
--- NOTE | 2016-08-23 12:25 | NUR ---
ATTEMPTED TO GIVE PT FOOD, NOTED SHE DRANK A FEW SIPS OF WATER AND SPAT OUT HER MASHED POTATOES. WILL CONTINUE TO OFFER SNACKS AND DRINKS.
--- NOTE | 2016-08-23 13:30 | NUR ---
LYING IN BED AT THIS TIME RESTING. NO ACUTE DISTRESS NOTED. RESPIRATIONS AT STEADY AND UNLABORED RATE. AWAKENS EASILY WHEN STAFF TOUCHES PT ARM. STILL NOT ANSWERING QUESTIONS. PT WILL GROAN WHEN AWAKE AND ONLY STATES THE WORDS WHAT AND OKAY WHEN SPOKEN TO. DOES NOT FOLLOW COMMANDS. PRN MEDS ADMIN FOR PAIN ORDERED. WILL CONTINUE PLAN OF CARE.
--- NOTE | 2016-08-23 13:45 | NUR ---
SPOKE WITH DR KLINE TO NOTIFY OF PT WANIGAN CLERK WHO IS MACRINA SANDOVAL FROM [employer]. WILL CONTINUE PLAN FO CARE.
--- NOTE | 2016-08-23 18:20 | NUR ---
FAMILY AT BEDSIDE AT THIS TIME. NO ACUTE DISTRESS NOTED. PT NOTED TO STATE A FAMILY MEMBER'S NAME AND TELL FAMILY "I'M FINE" WHEN FAMILY ASKED HOW SHE WAS DOING. PT NOT TALKING ANY MORE AT THIS MOMENT. WILL CONTINUE PLAN OF CARE.
--- NOTE | 2016-08-23 19:30 | NUR ---
REPORT RECEIVED AND CARE ASSUMED. MOANING OUT, BUT DENIES ANY DISCOMFORT. IV IN LEFT AC PATENT WITH NS AT TKO RATE, REBOLLEDO PATENT AAND DRAINING DEMARIO URINE. SEE ASSESSMENT FLOW SHEER FOR DETAILS.
--- NOTE | 2016-08-23 20:10 | NUR ---
LABETALOL 10 MG IVP GIVEN SLOWLY FOR B/P OF 192/110.
--- NOTE | 2016-08-23 20:56 | NUR ---
DILAUDID 2 MG IVP GIVEN SLOWLY FOR MOANING LOUDLY AND YELLING WHEN BEING TOUCHED.
[2016-08-24] VITALS (24 sets, daily range): BP systolic 156–202; BP diastolic 72–106
--- NOTE | 2016-08-24 00:35 | NUR ---
DILAUDID 2 MG IVP GIVEN SLOWLY FOR MOANING OUT AND SCREAMING WHEN BEING REPOSITIONED.
--- NOTE | 2016-08-24 00:51 | NUR ---
B/P 202/106 LABETALOL GIVEN IVP SLOWLY
--- NOTE | 2016-08-24 05:11 | NUR ---
LAB HERE TO DRAW BLOOD. PATIENT MOANING AND SCREAMING OUT LOUDLY. DILAUDID 2 MG IVP GIVEN SLOWLY.
[2016-08-24 05:12] LABS: ALBUMIN 3.1 g/dL (3.4-5.0); ALKALINE PHOSPHATASE 54 U/L (46-116); ALT (SGPT) 22 U/L (10-68); BILIRUBIN - TOTAL 0.54 mg/dL (0.2-1.3); CALCIUM 9.6 mg/dL (8.5-10.1); CARBON DIOXIDE 29.2 mmol/L (21.0-32.0); CHLORIDE - SERUM 102 mmol/L (98-107); CREATININE - SERUM 0.7 mg/dL (0.6-1.3); GLUCOSE 136 mg/dL (74-106); POTASSIUM - SERUM 4.1 mmol/L (3.5-5.1); PROTEIN - SERUM 7.3 g/dL (6.4-8.2); SODIUM 138 mmol/L (136-145); eGFR NON AFRICAN AMERICAN > 90 mL/min (90-120)
[2016-08-24 05:14] LABS: CALC OSMOLALITY 282 mosm/kg (275-300); UREA NITROGEN 26 mg/dL (7-18)
[2016-08-24 05:32] LABS: BASOPHILS 0.1 % (0.0-2.0); EOSINOPHILS 0.1 % (0-7); HEMATOCRIT 40.5 % (36.0-48.0); HEMOGLOBIN 12.5 g/dL (12-16); IMMATURE GRANULOCYTES 0.4 % (0-5); LYMPHOCYTES 10.8 % (15-50); MCH 25.4 pg (26.0-34.0); MCHC 30.9 g/dL (31.0-37.0); MCV 82.2 fL (80.0-100.0); MEAN PLATELET VOLUME 9.6 fL (7.4-10.4); MONOCYTES 12.5 % (2-11); NEUTROPHILS 76.1 % (40-80); PLATELET COUNT 217 10x3/uL (130-400); RBC 4.93 10x6/uL (4.00-5.40); RDW 19.9 % (11.5-14.5); WBC 16.8 10x3/uL (4.8-10.8)
--- NOTE | 2016-08-24 08:43 | NUR ---
PT ATE BREAKFAST WITH ASSIST FROM STAFF TO FEED PT. NOTED PT DRANK 120 ML ORANGE JUICE AND HALF OF OATMEAL. WHEN PT WAS GIVEN OPTIONS BETWEEN MILK AND ORANGE JUICE AND PT WAS ABLE TO STATE "ORANGE JUICE" WHEN ASKED PT IF SHE WANTED MORE TO EAT SHE STATED "YES" AND WHEN PT BEGAN TO FALL BACK TO SLEEP SHE WAS ASKED IF SHE WAS FINISHED EATING SHE STATED "YES." NO ACUTE DISTRESS NOTED. WILL CONTINUE PLAN OF CARE.
--- NOTE | 2016-08-24 09:03 | NUR ---
FAMILY AT BEDSIDE UPDATE GIVEN. PT ANSWERING SIMPLE QUESTIONS WITH FAMILY AND TURNING HEAD TO LOOK AT FAMILY MEMBERS WHEN SPOKEN TO. NO ACUTE DISTRESS NOTED. WILL CONTINUE PLAN OF CARE.
--- NOTE | 2016-08-24 09:03 | NUR ---
FAMILY AT BEDSIDE. UPDATE GIVEN.
--- NOTE | 2016-08-24 10:04 | NUR ---
SITTING UP IN BED DRINKING COFFEE, PER PT REQUEST, WITH ASSIST FROM STUDENT NURSE. NO ACUTE DISTRESS NOTED. WILL CONTINUE PLAN OF CARE.
--- NOTE | 2016-08-24 10:44 | NUR ---
NOTED PT STATING "NO,NO,NO,NO" WHILE IN ROOM WITH NO ONE ELSE PRESENT IN ROOM. WALKED INTO ROOM TO ASSESS SITUATION, NOTED COMPLAINT OF CRAMPING TO LEFT LEG. CALLED DR NGO TO NOTIFY, NEW ORDER FOR MAGNESIUM LEVEL NOW AND THEN IF LEVEL IS BELOW 1.8 TO GIVE ONE DOSE OF RIDERS X [address] ORDERS AT THIS TIME. WILL CONTINUE PLAN OF CARE.
--- NOTE | 2016-08-24 14:02 | NUR ---
ALTHOUGH BILATERAL WRIST RESTRAINTS WERE IN PLACE AND SECURE, PT PULLED REBOLLEDO OUT. WILL REPLACE REBOLLEDO AT THIS TIME.
--- NOTE | 2016-08-24 14:04 | NUR ---
LYING IN BED RESTING QUIETLY AT THIS TIME. NO ACUTE DISTRESS NOTED. AWAKENS EASILY WHENS STAFF WALKS IN ROOM. NO ACUTE DISTRESS NOTED. WILL CONTINUE PLAN OF CARE.
[2016-08-24 15:08] LABS: AFB SPECIMEN PROCESSING Not Indicated (())
--- NOTE | 2016-08-24 16:16 | NUR ---
PT IS MORE ALERT NOW. ABLE TO ANSWER SIMPLE QUESTIONS. APPROPIATE AND INNAPPROPIATE ANSWERING NOTED. PT ABLE TO STATE LOCATION, NAME, SITUATION, AND DATE, SOME INNAPROPIATE ANSWERING NOTED SUCH WHEN ASKED IF SHE KNEW WHO THE PRESIDENT WAS SHE STATED HER NAME. PT ABLE TO STATE IF SHE HAS ANY NEEDS. DENIES ANY NEEDS. STATES SHE IS COMFORTABLE AND DOES NOT WANT TO BE REPOSITIONED. NO ACUTE DISTRESS NOTED. WILL CONTINUE PLAN OF CARE.
--- NOTE | 2016-08-24 17:42 | NUR ---
LYING IN BED RESTING AT THIS TIME. NO ACUTE DISTRESS NOTED. DENIES ANY NEEDS. WILL CONTINUE PLAN OF CARE.
--- NOTE | 2016-08-24 18:19 | NUR ---
FAMILY AT BEDSIDE AT THIS TIME. NO ACUTE DISTRESS NOTED. PT ANSWERING SIMPLE QUESTIONS. WILL CONTINUE PLAN OF CARE.
--- NOTE | 2016-08-24 19:00 | NUR ---
REPORT RECIEVED, INITIAL ASSESSMENT COMPLETE, PLEASE SEE FLOW SHEETS FOR DETAILS. PT CONFUSED TO YEAR AND CITY, THUS TIME AND SITUATION. S1S2 AUSCULTATED, NSR NOTED AT REGULAR RATE. LUNG SOUNDS CLEAR ALL LOBES. BOWEL SOUNDS ACTIVE X4. LEFT FOREARM V WITH NS INFUSING AT KVO. BRUISING NOTED ON BILATERAL ARMS. SCD'S ON AND RUNNING. REBOLLEDO IN PLACE WITH CLOUDY YELLOW URINE NOTED. DENIES PAIN/NEEDS ATT. VSS, WILL CONTINUE TO MONITOR.
--- NOTE | 2016-08-24 21:00 | NUR ---
ORAL CARE AND TURNING PROVIDED. CORIN PAIN ATT. AT BEDSIDE, ANSWERED ALL QUESTIONS TO BEST OF ABILITY. NO OTHER QUESTIONS ATT. VSS, BED LOW AND LOCKED, CALL LIGHT IN REACH. WILL CONTINUE TO MONITOR.
--- NOTE | 2016-08-24 23:00 | NUR ---
REASSESSMENT COMPLETE, PLEASE SEE FLOW SHEETS FOR DETAILS. SHOWIG SIGNS OF PAIN/DISCOMFORT. PT WAS REPOSITIONED IN BED. LIGHTS TURNED OFF. BED LOW AND LOCKED, CALL LIGHT IN REACH. VSS, RR EVEN AND UNLABORED BUT SHALLOW. NSR NOTED. NO S&S OF ACUTE DISTRESS NOTED. WILL CONTINUE TO MONITOR.
[2016-08-25] VITALS (14 sets, daily range): BP systolic 124–198; BP diastolic 66–116
--- NOTE | 2016-08-25 01:00 | NUR ---
TURNING PROVIDED. OFFERED SIPS OF WATER. BED LOW AND LOCKED, CALL LIGHT IN REACH. VSS, WILL CONTINUE TO MONITOR.
--- NOTE | 2016-08-25 02:54 | NUR ---
REASSESSMENT COMPLETE, PLEASE SEE FLOW SHEETS FOR DETAILS. TURNING PROVIDED. VSS, BED LOW AND LOCKED, CALL LIGHT IN REACH. WILL CONTINUE TO MONITOR.
[2016-08-25 03:45] LABS: BASOPHILS 0 % (0.0-2.0); EOSINOPHILS 0 % (0-7); HEMATOCRIT 38.6 % (36.0-48.0); HEMOGLOBIN 11.9 g/dL (12-16); IMMATURE GRANULOCYTES 0.2 % (0-5); LYMPHOCYTES 10.2 % (15-50); MCH 25.6 pg (26.0-34.0); MCHC 30.8 g/dL (31.0-37.0); MCV 83.2 fL (80.0-100.0); MEAN PLATELET VOLUME 9.4 fL (7.4-10.4); MONOCYTES 13.2 % (2-11); NEUTROPHILS 76.4 % (40-80); PLATELET COUNT 231 10x3/uL (130-400); RBC 4.64 10x6/uL (4.00-5.40); RDW 20.2 % (11.5-14.5); WBC 13.8 10x3/uL (4.8-10.8)
[2016-08-25 04:05] LABS: ALBUMIN 2.8 g/dL (3.4-5.0); ALKALINE PHOSPHATASE 47 U/L (46-116); ALT (SGPT) 19 U/L (10-68); BILIRUBIN - TOTAL 0.53 mg/dL (0.2-1.3); CALC OSMOLALITY 287 mosm/kg (275-300); CALCIUM 8.7 mg/dL (8.5-10.1); CARBON DIOXIDE 32.5 mmol/L (21.0-32.0); CHLORIDE - SERUM 105 mmol/L (98-107); CREATININE - SERUM 0.5 mg/dL (0.6-1.3); GLUCOSE 119 mg/dL (74-106); PHENYTOIN (DILANTIN) 9.8 ug/mL (10.0-20.0); POTASSIUM - SERUM 3.4 mmol/L (3.5-5.1); PROTEIN - SERUM 7.1 g/dL (6.4-8.2); SODIUM 142 mmol/L (136-145); UREA NITROGEN 23 mg/dL (7-18); eGFR NON AFRICAN AMERICAN > 90 mL/min (90-120)
--- NOTE | 2016-08-25 05:00 | NUR ---
REPOSITIONED IN BED AND PROVIDED REBOLLEDO CARE. BED LOW AND LOCKED, CALL LIGHT IN REACH. VSS, WILL CONTINUE TO MONITOR
--- NOTE | 2016-08-25 06:27 | NUR ---
PT BP 208/111, GAVE HYDRALAZINE ORDERED. COMPLAINING OF PAIN 8/10 IN LEGS, CRAMPING, GAVE DILAUDID ORDERED. WILL CONTINUE TO MONITOR. BED LOW AND LOCKED, CALL LIGHT IN REACH.
--- NOTE | 2016-08-25 07:00 | NUR ---
REC'D REPORT FROM JOSHUA MIRANDA, RESUMED CARE, PATIENT AWAKE AND CONFUSED, O2 VIA NC AT 4L, SAT 99%, LEFT FA PIV SL, REBOLLEDO TO GRAVITY WITH CONCENTRATED TO BAG, SCD'S B/L, DENIES PAIN, FOLLOWS COMMANDS, WEAKNESS NOTED ON LEFT SIDE, UNABLE TO LIFT LEFT LEG, WIGGLES TOES, LEFT HAND WEAK LOG MANAGER, DOES NOT LIFT LEFT ARM, ASSESSMENT COMPLETE PER FLOWSHEET, VSS, KLC 10 MEQ INFUSING AT 100 CC/HR, DENIES PAIN, CALL LIGHT IN REACH, REPOSITIONED UP AND TO BACK,
--- NOTE | 2016-08-25 07:45 | NUR ---
BREAKFAST TRAUY TO BEDSIDE, ASSIST WITH SET UP AND FEEDING, BITES AND SIPS ONLY
--- NOTE | 2016-08-25 08:26 | EEG ---
PATIENT:MARK CASTREJON DATE OF SERVICE: 08/21/16 MEDICAL RECORD: [id number] DATE OF : 57 LOCATION:D.230 D.ICU ADMISSION DATE: 08/21/16 REFERRING PHYSICIAN: INTERPRETING PHYSICIAN: CARLOS KLINE MD DATE OF SERVICE: 08/22/2016 REFERRED BY: Myself as an inpatient in room 2301. ELECTROENCEPHALOGRAM NUMBER: [id number]. DATE OF EXAMINATION: 08/22/2016 at 11:55 a.m. TECHNICAL DATA: This electroencephalographic recording consists of approximately 20 minutes of data collection utilizing the international 10/20 system of electrode placement and both referential and non-referential montages. Sixteen channels of electrocerebral recording are accompanied by a 17th channel dedicated to the electrocardiographic rhythm and 2 channels of electromyographic recording. Recording is performed in the lethargic state utilizing activation by photic stimulation as well as verbal and tactile stimulation. ELECTROENCEPHALOGRAPHIC DATA: The entirety of the recorded electrocerebral activity is performed in the lethargic state. The patient is confused and uncooperative for examination continuously moving in bed. Electromyographic and movement artifacts obscure nearly the entirety of the recorded electrocerebral activity. Rapid eye movements are occasionally seen. A posterior dominant background has not developed. Electrocerebral activity is observed through the artifact reveals a mixture of slow wave activities ranging from 1-5 Hz that are generalized symmetric and irregular in morphology. There is some intermixed faster activity in the range of 15-20 Hz. No epileptiform discharges are seen. No clinical or electrocerebral seizures are identified. INTERPRETATION: Continuous slow, generalized (lethargy). This electroencephalographic recording is indicative of a moderate diffuse encephalopathy. The study is of suboptimal quality secondary to patient's lack of ability to cooperate and continuous movement throughout the study. No clinical or electrocerebral seizures are identified. TRANSINT:[id number] Voice Confirmation ID: [id number] DOCUMENT ID: [id number] CARLOS KLINE MD at 0826 CC: [id number] DICTATION DATE: 08/23/16 0736 INSPECTOR SHELLS: 08/23/16 1233 [place] [address]
--- NOTE | 2016-08-25 09:07 | NUR ---
Nutrition follow-up: Diet: low sodium PO intake ~25% of meals Pt is more alert today per nursing lab reviewed Wt: 210# Will provide food choices and honor food preferences. RDN following.
--- NOTE | 2016-08-25 11:00 | NUR ---
NO ACUTE CHANGE FROM PREVIOUS ASSESSMENT, VSS, REPOSITIONED TO LEFT SIDE WITH PILLOW PROPPED TO BACK AND HEELS FLOATED
--- NOTE | 2016-08-25 11:50 | NUR ---
LUNCH TRAY TO BEDSIDE, ASSIST WITH SETUP AN EATING, 50% OF MEAL EATEN WITHOUT DIFFICULTY
--- NOTE | 2016-08-25 12:00 | NUR ---
FAMILY AND FRIENDS AT BEDSIDE, STATUS UPDATED, NO NEEDS AT THIS TIME
--- NOTE | 2016-08-25 15:00 | NUR ---
ASSESSMENT COMPLETE, MORE AWAKE, SPEECH CLEAR, CONTINUES TO HAVE TROUBLE WITH VISION, WEARS GLASSES, PUPILS EQUAL AND REACTIVE, NO ACCOMMODATION, SEE'S 5 WHEN FOUR FINGERS ARE SHOWN, STATES VISION IS NOT BLURRY, DOES NOT FEEL DIZZY, DOES NOT TRACK WITH VISION, NO OTHER ACUTE CHANGE FROM PREVIOUS ASSESSMENT
--- NOTE | 2016-08-25 16:25 | NUR ---
Patient Name: MARK CASTREJON Admission Status: ER Accout number: [id number] Admission Date: 08-21-2016 : 1955 Admission Diagnosis: Attending: JACQUE Current LOS: 4 Anticipated DC Date: Planned Disposition: Primary Insurance: UNINSURED DISCOUNT PLAN Discharge Planning Comments: CM ATTEMPTED TO MEET WITH PT FOR INITIAL ASSESSMENT OF DISCHARGE NEEDS. PT WAS REPORTED TO BE CONFUSED BY NURSING AND WAS SLEEPING AT APPROXIMATELY 1320 HOURS. NO FAMILY WAS PRESENT. CM TO ATTEMPT ASSESSMENT OF PT AT A LATER TIME. Track Layer: Musa Francisco
--- NOTE | 2016-08-25 17:30 | NUR ---
DINNER TRAY TO BEDSIDE, ASSIST WITHN SET UP AND EATING, 30% OF MEAL EATEN
--- NOTE | 2016-08-25 18:18 | NUR ---
REPORT CALLED TO JOSHUA SOTO ON [facility] FOR PENDING TRANSFER
--- NOTE | 2016-08-26 03:32 | NUR ---
PATIENT HAS BEEN SLEEPING THE INTIRE NIGHT. AROUSES TO VOICE. SPEECH IS CLEAR ALTHOUGH SHE IS ONLY SAYING YES AND NO TO ME. ASKED ME WHAT HER BP WAS AND IT WAS CLEAR. ALERT AND ORIENTED. INSTUCTED TO CALL IF NEEDED ANYTHING. PATIENT VERBALIZED UNDERSTANDING.
[2016-08-26 04:00] VITALS: BP 186/92
[2016-08-26 05:37] LABS: BASOPHILS 0 % (0.0-2.0); EOSINOPHILS 0.2 % (0-7); HEMATOCRIT 37.2 % (36.0-48.0); HEMOGLOBIN 11.3 g/dL (12-16); IMMATURE GRANULOCYTES 0.3 % (0-5); LYMPHOCYTES 13.2 % (15-50); MCH 25.5 pg (26.0-34.0); MCHC 30.4 g/dL (31.0-37.0); MEAN PLATELET VOLUME 9.2 fL (7.4-10.4); MONOCYTES 10.7 % (2-11); NEUTROPHILS 75.6 % (40-80); PLATELET COUNT 209 10x3/uL (130-400); RBC 4.43 10x6/uL (4.00-5.40); RDW 20.1 % (11.5-14.5); WBC 15.2 10x3/uL (4.8-10.8)
--- NOTE | 2016-08-26 06:15 | NUR ---
PATIENT IS RESTING COMFORTABLY IN BED WILL AROUSE TO VOICE. DENIED NEEDS AT THIS TIME INSTRUCTED TO CALL IF NEEDED ANYTHING PATIENT VERBALED UNDERSTANDING. BED LOW, LOCKED, CALL LIGHT IN REACH.
[2016-08-26 06:20] LABS: ALBUMIN 2.5 g/dL (3.4-5.0); ALKALINE PHOSPHATASE 45 U/L (46-116); ALT (SGPT) 18 U/L (10-68); BILIRUBIN - TOTAL 0.52 mg/dL (0.2-1.3); CALC OSMOLALITY 280 mosm/kg (275-300); CALCIUM 8.9 mg/dL (8.5-10.1); CARBON DIOXIDE 31.9 mmol/L (21.0-32.0); CHLORIDE - SERUM 104 mmol/L (98-107); CREATININE - SERUM 0.5 mg/dL (0.6-1.3); GLUCOSE 81 mg/dL (74-106); POTASSIUM - SERUM 3.9 mmol/L (3.5-5.1); PROTEIN - SERUM 6.2 g/dL (6.4-8.2); SODIUM 140 mmol/L (136-145); UREA NITROGEN 21 mg/dL (7-18); eGFR NON AFRICAN AMERICAN > 90 mL/min (90-120)
--- NOTE | 2016-08-26 07:00 | NUR ---
REPORT RECIEVED ASSUMED CARE. PATIENT IN BED WITH IV INTACT. NO COMPLAINTS AT THIS TIME. CALL LIGHT WITHIN REACH.
[2016-08-26 08:13] VITALS: BP 189/75
--- NOTE | 2016-08-26 08:30 | NUR ---
ASSESSMENT COMPLETE, VS STABLE. PATIENT IN BED WITH IV INTACT. NO COMPLAINTS. CALL LIGHT WITHIN REACH. BSCDS PLACED ON BY HOLLY LEWIS.
[2016-08-26 12:18] VITALS: BP 158/89
[2016-08-26 15:52] VITALS: BP 161/84
--- NOTE | 2016-08-26 17:30 | NUR ---
PATIENT IV LEAKING. REMOVED BY STUDENTS AND INSTRUCTOR. STUDENTS AND INSTRUCTOR TRIED TO RESTICK X 2 WITH NO SUCCESS AT THIS TIME. WILL TRY AGAIN IN A LITTLE WHILE. PATIENT HAS NO COMPLAINTS. CALL LIGHT WITHIN REACH.
[2016-08-26 19:00] VITALS: BP 181/99
[2016-08-26 19:11] LABS: HSV 1 DNA (PCR) Negative (Negative); HSV 2 DNA (PCR) Negative (Negative)
[2016-08-27 04:00] VITALS: BP 194/96
[2016-08-27 05:25] LABS: BASOPHILS 0 % (0.0-2.0); EOSINOPHILS 0.2 % (0-7); HEMOGLOBIN 11.7 g/dL (12-16); IMMATURE GRANULOCYTES 0.3 % (0-5); LYMPHOCYTES 11.1 % (15-50); MCH 25.8 pg (26.0-34.0); MCHC 30.8 g/dL (31.0-37.0); MCV 83.9 fL (80.0-100.0); MEAN PLATELET VOLUME 9.3 fL (7.4-10.4); MONOCYTES 9.5 % (2-11); NEUTROPHILS 78.9 % (40-80); PLATELET COUNT 194 10x3/uL (130-400); RBC 4.53 10x6/uL (4.00-5.40); RDW 19.8 % (11.5-14.5); WBC 16.4 10x3/uL (4.8-10.8)
[2016-08-27 05:51] LABS: ALBUMIN 2.4 g/dL (3.4-5.0); ALKALINE PHOSPHATASE 47 U/L (46-116); ALT (SGPT) 20 U/L (10-68); BILIRUBIN - TOTAL 0.46 mg/dL (0.2-1.3); CALC OSMOLALITY 283 mosm/kg (275-300); CALCIUM 8.9 mg/dL (8.5-10.1); CHLORIDE - SERUM 106 mmol/L (98-107); CREATININE - SERUM 0.5 mg/dL (0.6-1.3); GLUCOSE 81 mg/dL (74-106); PROTEIN - SERUM 6.3 g/dL (6.4-8.2); SODIUM 142 mmol/L (136-145); UREA NITROGEN 19 mg/dL (7-18); eGFR NON AFRICAN AMERICAN > 90 mL/min (90-120)
[2016-08-27 05:54] LABS: POTASSIUM - SERUM 3.3 mmol/L (3.5-5.1)
--- NOTE | 2016-08-27 08:40 | NUR ---
PATIENT IS AWAKE, ALERT AND ORIENTED X'S 4. RESPIRATIONS ARE EVEN AND UNLABORED. NO SIGNS OF DISTRESS NOTED. BED IN LOWEST POSITION, CALL LIGHT IN REACH. BED RAILS UP X'S 2.
--- NOTE | 2016-08-27 08:41 | NUR ---
PT RESTING IN BED, FAMILY AT BEDSIDE, ASSESSMENT COMPLETE, DENIES NEEDS, CALL LIGHT IN REACH, BED LOWEST POSITION, SIDE RAILS X2, WILL CONITNUE TO MONITOR
[2016-08-27 08:50] VITALS: BP 184/87
[2016-08-27 08:55] LABS: ERYTHROCYTE SEDIMENTATION RATE 35 mm/hr (0-30)
[2016-08-27 11:19] LABS: FUNGUS STAIN Final report (())
[2016-08-27 12:48] VITALS: BP 167/81
[2016-08-27 15:26] LABS: IGGS - IGG INDEX CSF 0.6 (0.0-0.7); IGGS - IGG SYNTHESIS RATE CSF 6.9 mg/day (-9.9 TO +3.3)
[2016-08-27 16:34] VITALS: BP 162/79
[2016-08-27 19:00] VITALS: BP 165/86
[2016-08-28 04:00] VITALS: BP 191/84
[2016-08-28 05:10] LABS: BASOPHILS 0.1 % (0.0-2.0); EOSINOPHILS 0.5 % (0-7); HEMATOCRIT 36.8 % (36.0-48.0); HEMOGLOBIN 11.3 g/dL (12-16); IMMATURE GRANULOCYTES 0.3 % (0-5); LYMPHOCYTES 13.7 % (15-50); MCH 25.4 pg (26.0-34.0); MCHC 30.7 g/dL (31.0-37.0); MCV 82.7 fL (80.0-100.0); MONOCYTES 8.7 % (2-11); NEUTROPHILS 76.7 % (40-80); PLATELET COUNT 194 10x3/uL (130-400); RBC 4.45 10x6/uL (4.00-5.40); WBC 19.2 10x3/uL (4.8-10.8)
[2016-08-28 05:41] LABS: CALC OSMOLALITY 283 mosm/kg (275-300); CALCIUM 8.9 mg/dL (8.5-10.1); CARBON DIOXIDE 28.9 mmol/L (21.0-32.0); CHLORIDE - SERUM 105 mmol/L (98-107); CREATININE - SERUM 0.5 mg/dL (0.6-1.3); GLUCOSE 85 mg/dL (74-106); POTASSIUM - SERUM 3.5 mmol/L (3.5-5.1); SODIUM 142 mmol/L (136-145); UREA NITROGEN 19 mg/dL (7-18); eGFR NON AFRICAN AMERICAN > 90 mL/min (90-120)
--- NOTE | 2016-08-28 07:45 | NUR ---
IV SITED TO RIGHT FOREARM X1 STCK USING ASEPTIC TECH 22G
--- NOTE | 2016-08-28 07:55 | NUR ---
PATIENT RECEIVED ALERT IN HIGH ROGERS POSITION. RESPIRATIONS EVEN AND UNLABORED. GUEST AT BEDSIDE. SIDE RAILS UP X2. BED IN LOW POSITION. CALL LIGHT IN REACH.
--- NOTE | 2016-08-28 08:14 | NUR ---
PT RECIEVED ON MORNING ROUNDS ASSESSMENT COMPLETE AWAKE AND ALERT ORINETD X 3 LUNGS WITH INSPIRATORY WHEEZE NOTED TO UPPER LOBES BILATERALLY. BSA X 4 QUADS. MOVES ALL EXTREMTIES TO COMMAND HAS NOTED WEAKNESS TO LEFT UPPER AND LOWER EXTREMTIES. CALLLIGHT INREACH SIDE RAILS UP X 2 PT HAD HTN THIS AM TREATED WITH PRN LABATELOL CURRENT B/P 185/82 20 MIN POST TREATMENT WILL MONITOR.
[2016-08-28 08:47] VITALS: BP 185/92
--- NOTE | 2016-08-28 09:01 | NUR ---
Patient Name: MARK CASTREJON Admission Status: ER Accout number: [id number] Admission Date: 08-21-2016 : 1955 Admission Diagnosis:HEADACHE Attending: JACQUE Current LOS: 7 Anticipated DC Date: 09-01-2016 Planned Disposition: [facility] Primary Insurance: [employer] Discharge Planning Comments: CM MET WITH PATIENT AND SPOUSE (JOAO) REGARDING D/C NEEDS AND PLANS. SPOUSE STATED THEY HAVE 4 STEPS W/RAILS TO ENTER HOME AND NO STAIRS INSIDE. PATIENT AND SPOUSE ARE INTERESTED IN HOME HEALTH BUT HE WILL NOT BE HOME ALL THE TIME. CM SPOKE WITH PATIENT REGARDING IP REHAB AND SHE WAS VERY OPEN TO IT AND TALK WITH ABOUT IT. (HE REC. PHONE CALL WHILE CM WAS IN ROOM AND DID NOT HEAR ABOUT SNF) CM WILL CHECK BACK WITH THEM TODAY AND SEE IF THEY WANT SNF. PATIENTS PCP IS DR. LAUREANO AND PHARMACY IS [facility]. PATIENT HAS A WALKER, CANE, LIFT CHAIR, SHOWER CHAIR, BS COMMODE, AND GLUCOMETER AT HOME. PATIENT DID SIGN THE NORA WITH [employer] IF THEY COULD WORK SOMETHING OUT FOR HER SAFETY AT HOME WITH GONE. CM WILL CONTINUE TO FOLLOW PATIENT WITH D/C NEEDS AND PLANS. PCP DR. SRIDEVI PADILLA [facility]- [phone] JOAO (SPOUSE) [phone] Switch Crew Supervisor: Kayla Lan Is the patient Alert and Oriented? Yes 0 * How many steps to enter\exit or inside your home? 4 W/RAILS 0 * PCP DR. LAUREANO 0 * Pharmacy [facility] 0 * Preadmission Environment Home with Family 0 * ADLs Independent 0 * Equipment Bedside Commode Cane Glucometer Shower Chair Walker Wheelchair 0 * List name and contact numbers for known caregivers / representatives who currently or will assist patient after discharge: JOAO (SPOUSE) [phone] 0 * Community resources currently utilized None 0 * Additional services required to return to the preadmission environment? Yes 0 * Can the patient safely return to the preadmission environment? Yes 0 * Has this patient been hospitalized within the prior 30 days at any hospital? No 0 Grand Total: 0
--- NOTE | 2016-08-28 12:35 | NUR ---
NUTRITION MONITORING & EVAL PT TOLERATING AHA DIET. 75% INTAKE BREAKFAST. WILL CONTINUE TO PROVIDE DIET, MONITOR PT PROGRESS. RD FOLLOWING
[2016-08-28 13:06] VITALS: BP 92/60
[2016-08-28 16:23] VITALS: BP 103/65
--- NOTE | 2016-08-28 16:44 | NUR ---
CM REASSESSMENT NOTE: [facility] AND THEY ARE WAITING ON THE OT NOTE. CM WILL SEND THE NOTE TOMORROW WHEN AVAILABLE.
[2016-08-28 20:00] VITALS: BP 154/71
--- NOTE | 2016-08-28 20:00 | NUR ---
PATIENT IN BED VISITING WITH . AAOX4. RR EVEN AND UNLABORED. O2 @ 2L VIA NC. 0 S/S OF DISTRESS. DENIES PAIN AT THIS TIME. IV TO RIGHT FA S/L WITH NO REDNESS OR SWELLING. REBOLLEDO SECURED WITH STATLOCK AND DRAINING TO GRAVITY. BOX ALARM ON AND ATTACHED TO PATIENT. SRX2. BED LOW. CALL LIGHT WITHIN REACH.
--- NOTE | 2016-08-28 22:45 | NUR ---
ASSESSMENT COMPLETE. NIGHTTIME MEDS GIVEN PER ORDER. REPOSITIONED PATIENT.
[2016-08-29] VITALS (7 sets, daily range): BP systolic 123–176; BP diastolic 73–95
--- NOTE | 2016-08-29 00:30 | NUR ---
ULTRACET GIVEN FOR PAIN IS LEGS OF A 5/10.
[2016-08-29 04:48] LABS: BASOPHILS 0 % (0.0-2.0); EOSINOPHILS 0.1 % (0-7); HEMATOCRIT 36.1 % (36.0-48.0); HEMOGLOBIN 11.1 g/dL (12-16); IMMATURE GRANULOCYTES 0.3 % (0-5); LYMPHOCYTES 7.3 % (15-50); MCH 25.3 pg (26.0-34.0); MCHC 30.7 g/dL (31.0-37.0); MCV 82.4 fL (80.0-100.0); MEAN PLATELET VOLUME 9.4 fL (7.4-10.4); MONOCYTES 7.7 % (2-11); NEUTROPHILS 84.6 % (40-80); PLATELET COUNT 206 10x3/uL (130-400); RBC 4.38 10x6/uL (4.00-5.40); RDW 20.3 % (11.5-14.5); WBC 16.1 10x3/uL (4.8-10.8)
[2016-08-29 05:05] LABS: CALC OSMOLALITY 283 mosm/kg (275-300); CALCIUM 9.1 mg/dL (8.5-10.1); CARBON DIOXIDE 29.1 mmol/L (21.0-32.0); CHLORIDE - SERUM 105 mmol/L (98-107); CREATININE - SERUM 0.5 mg/dL (0.6-1.3); GLUCOSE 107 mg/dL (74-106); POTASSIUM - SERUM 3.4 mmol/L (3.5-5.1); SODIUM 141 mmol/L (136-145); UREA NITROGEN 20 mg/dL (7-18); eGFR NON AFRICAN AMERICAN > 90 mL/min (90-120)
--- NOTE | 2016-08-29 18:45 | NUR ---
PATIENT IN BED WITH IV INTACT. NO COMPLAINTS. FAMILY AT BEDSIDE. CALL LIGHT WITHIN REACH.
--- NOTE | 2016-08-29 21:48 | NUR ---
PATIENT RESTING IN BED. COMPLAINTS OF SEVERE HEADACHE. PRN ULTRACET GIVEN ORDERED. SCHEDULED MEDS GIVEN. ASSESSMENT COMPLETED. NO SIGNS OF DISTRESS NOTED. DENIES ANY OTHER NEEDS. BED LOW CALL LIGHT IN REACH.
--- NOTE | 2016-08-29 23:02 | NUR ---
VASOTECH GIVEN PER MAR, BETTYE WELL, CL IN REACH
[2016-08-30] VITALS (7 sets, daily range): BP systolic 107–180; BP diastolic 70–106
--- NOTE | 2016-08-30 04:37 | NUR ---
LABETALOL GIVEN PER MAR, BETTYE WELL, CL IN REACH
--- NOTE | 2016-08-30 07:25 | NUR ---
Received patient lying in bed, alert and oriented times 4, family member at bedside. Complains of headache, blood pressure assessed to 97/68. SCD hose reapplied and functioning properly. Weakness to all four extremities. Prn Tylenol administered.
[2016-08-30 08:02] LABS: BASOPHILS 0.1 % (0.0-2.0); EOSINOPHILS 0.2 % (0-7); HEMATOCRIT 36.7 % (36.0-48.0); HEMOGLOBIN 11.1 g/dL (12-16); IMMATURE GRANULOCYTES 0.5 % (0-5); LYMPHOCYTES 9.2 % (15-50); MCH 25.2 pg (26.0-34.0); MCHC 30.2 g/dL (31.0-37.0); MCV 83.2 fL (80.0-100.0); MEAN PLATELET VOLUME 9.3 fL (7.4-10.4); MONOCYTES 7.5 % (2-11); NEUTROPHILS 82.5 % (40-80); PLATELET COUNT 188 10x3/uL (130-400); RBC 4.41 10x6/uL (4.00-5.40); RDW 20.7 % (11.5-14.5); WBC 19.7 10x3/uL (4.8-10.8)
[2016-08-30 08:15] LABS: CALC OSMOLALITY 282 mosm/kg (275-300); CARBON DIOXIDE 24.6 mmol/L (21.0-32.0); CHLORIDE - SERUM 103 mmol/L (98-107); CREATININE - SERUM 0.6 mg/dL (0.6-1.3); GLUCOSE 109 mg/dL (74-106); MAGNESIUM - SERUM 1.8 mg/dL (1.8-2.4); POTASSIUM - SERUM 3.7 mmol/L (3.5-5.1); SODIUM 140 mmol/L (136-145); UREA NITROGEN 21 mg/dL (7-18); eGFR NON AFRICAN AMERICAN > 90 mL/min (90-120)
--- NOTE | 2016-08-30 10:07 | NUR ---
Resting quietly, headache level now "4", bllod pressure 94/65, family reports knot to back nof patient head, area assesed, palpated small pea size nodule, no redness or warmth.
--- NOTE | 2016-08-30 11:50 | NUR ---
Awake, alert and oriented times 4 stating headache just will not ease up completly, BP 107/73
--- NOTE | 2016-08-30 14:30 | NUR ---
Patient back from MRI, alert and oriented times 4, headache improved, feeling beeter. BP 108/72
--- NOTE | 2016-08-30 23:41 | NUR ---
PT LAYING IN BED VASOTEC AND CERABREX IVP ORDERED BP 197/91 PT C/O PAIN AND MITZY INDUSTRIAL HYGIENE TECHNICIAN ADMIN PAIN MEDS ORDERED IVP TO RIGHT FOREARM INTACT NO INFILTRATION OBSERVED WILL MONITOR
[2016-08-31] VITALS: BP 152/88
[2016-08-31 04:00] VITALS: BP 158/92
[2016-08-31 05:17] LABS: HEMATOCRIT 38.4 % (36.0-48.0); HEMOGLOBIN 11.9 g/dL (12-16); MCH 25.7 pg (26.0-34.0); MCV 82.9 fL (80.0-100.0); MEAN PLATELET VOLUME 10.1 fL (7.4-10.4); PLATELET COUNT 209 10x3/uL (130-400); RBC 4.63 10x6/uL (4.00-5.40); RDW 20.8 % (11.5-14.5); WBC 26.2 10x3/uL (4.8-10.8)
[2016-08-31 05:34] LABS: EOSINOPHILS 2 % (0-7); LYMPHOCYTES 11 % (15-50); MONOCYTES 8 % (2-11); NEUTROPHILS 79 % (40-80); PLATELET ESTIMATE NORMAL
[2016-08-31 06:39] LABS: ALBUMIN 2.4 g/dL (3.4-5.0); ALKALINE PHOSPHATASE 74 U/L (46-116); ALT (SGPT) 47 U/L (10-68); BILIRUBIN - TOTAL 0.63 mg/dL (0.2-1.3); CALC OSMOLALITY 280 mosm/kg (275-300); CALCIUM 9.4 mg/dL (8.5-10.1); CARBON DIOXIDE 28.7 mmol/L (21.0-32.0); CHLORIDE - SERUM 101 mmol/L (98-107); CREATININE - SERUM 0.6 mg/dL (0.6-1.3); GLUCOSE 90 mg/dL (74-106); MAGNESIUM - SERUM 1.7 mg/dL (1.8-2.4); PHOSPHOROUS 3.1 mg/dL (2.5-4.9); PROTEIN - SERUM 7.6 g/dL (6.4-8.2); SODIUM 140 mmol/L (136-145); UREA NITROGEN 17 mg/dL (7-18); eGFR NON AFRICAN AMERICAN > 90 mL/min (90-120)
--- NOTE | 2016-08-31 07:51 | NUR ---
SLEEPING QUIETLY AT PRESENT RESP EVEN AND UNLABORED AT PRESENT DENIES ANY NEEDS AT PRESENT.
[2016-08-31 09:00] VITALS: BP 96/67
--- NOTE | 2016-08-31 09:15 | NUR ---
MEDS GIVEN BETTYE WELL AT PRESENT DENIES ANY NEEDS AT PRESENT.
--- NOTE | 2016-08-31 11:00 | NUR ---
REPOSITIONED FOR COMFORT AT PRESENT DENIES ANY NEEDS AT THIS TIME.
--- NOTE | 2016-08-31 12:00 | NUR ---
TO MRI VIA STRETCHER AT PRESENT.
--- NOTE | 2016-08-31 13:00 | NUR ---
RET FROM MRI VIA CART AT PRESENT INCONT OF STOOL PT CLEANED UP.
--- NOTE | 2016-08-31 15:00 | NUR ---
SLEEPING QUIETLY AT PRESENT RESP EVEN AND UNLABORED AT PRESENT.
[2016-08-31 16:34] VITALS: BP 157/87
--- NOTE | 2016-08-31 16:47 | NUR ---
AT BEDSIDE SLEEPING QUIETLY AT PRESENT.
--- NOTE | 2016-08-31 19:30 | NUR ---
RECIEVED SHIFT REPORT. PT IS LYING IN BED. ALERT AND ORIENTED AND ABLE TO VERBALIZE NEEDS. IV IS PATENT AND SALINE LOC AT THIS TIME. PT REQUIRES ASSISTANCE TURNING IN BED FOR COMFORT AND SKIN CARE. PT STATES PAIN IS 8/10. REBOLLEDO IS DRAINING URINE BY GRAVITY. SCD'S ON. NO NEEDS ARE VERBALIZED AT THIS TIME. WILL CONTINUE TO MONITOR. SIDE RAILS ARE UP X 2. BED IS IN LOWEST POSITION. CALL LIGHT IS WITHIN REACH.
--- NOTE | 2016-08-31 21:42 | NUR ---
SHIFT ASSESSMENT COMPLETED. NIGHT MEDS GIVEN WITH NO PROBLEMS. NO NEEDS ARE VOICED. WILL MONITOR. SIDE RAILS X 2. BED LOW. CALL LIGHT IN REACH.
[2016-08-31 23:13] VITALS: BP 161/77
[2016-09-01 04:00] VITALS: BP 165/82
[2016-09-01 05:32] LABS: BASOPHILS 0.1 % (0.0-2.0); EOSINOPHILS 0.2 % (0-7); HEMOGLOBIN 12.3 g/dL (12-16); IMMATURE GRANULOCYTES 0.6 % (0-5); LYMPHOCYTES 9.4 % (15-50); MCH 25.5 pg (26.0-34.0); MCHC 31.5 g/dL (31.0-37.0); MCV 80.9 fL (80.0-100.0); MONOCYTES 7.8 % (2-11); NEUTROPHILS 81.9 % (40-80); PLATELET COUNT 196 10x3/uL (130-400); RBC 4.82 10x6/uL (4.00-5.40); RDW 20.5 % (11.5-14.5); WBC 24.7 10x3/uL (4.8-10.8)
[2016-09-01 05:42] LABS: CALCIUM 9.5 mg/dL (8.5-10.1); CARBON DIOXIDE 22.4 mmol/L (21.0-32.0); CHLORIDE - SERUM 101 mmol/L (98-107); CREATININE - SERUM 0.6 mg/dL (0.6-1.3); POTASSIUM - SERUM 3.9 mmol/L (3.5-5.1); SODIUM 140 mmol/L (136-145); eGFR NON AFRICAN AMERICAN > 90 mL/min (90-120)
[2016-09-01 05:46] LABS: CALC OSMOLALITY 283 mosm/kg (275-300); GLUCOSE 114 mg/dL (74-106); UREA NITROGEN 25 mg/dL (7-18)
[2016-09-01 05:56] LABS: C-REACTIVE PROTEIN 56.2 mg/dL (0.0-0.9)
--- NOTE | 2016-09-01 07:30 | NUR ---
REPORT RECEIVED FROM IRRIGATOR VALVE PIPE NURSE. CALL LIGHT IN REACH.
[2016-09-01 08:37] VITALS: BP 107/71
--- NOTE | 2016-09-01 09:49 | NUR ---
ASSESSMENT COMPLETED. AM MEDS ADMINISTERED PER ORDERS. SCDs TO BLE. DISPOSABLE ALARM ON. MEDS CRUSHED AND GIVEN WITH APPLESAUCE. URINE OBTAINED FROM REBOLLEDO CATH AND SENT TO LAB FOR UA. FAMILY AT BEDSIDE. CALL LIGHT IN REACH. WILL CONTINUE WITH PLAN OF CARE.
--- NOTE | 2016-09-01 10:22 | NUR ---
O2 SAT ONLY COMES UP TO 92% WHILE BEING ON 4L PER NC. RESPIRATIONS ARE 32. WILL CALL DR. LAUREANO TO NOTIFY HIM.
--- NOTE | 2016-09-01 10:25 | NUR ---
MESSAGE LEFT WITH DR. COX'S NURSE ABOUT PATIENT'S VS.
--- NOTE | 2016-09-01 10:30 | NUR ---
SPOKE WITH DR. LAUREANO. NEW ORDERS RECEIVED.
[2016-09-01 11:41] LABS: APPEARANCE CLOUDY (CLEAR); COLOR ORANGE (YELLOW); LEUKOCYTE ESTERASE NEGATIVE (NEGATIVE); NITRITE POSITIVE (NEGATIVE); SPECIFIC GRAVITY 1.025 (1.005-1.020)
[2016-09-01 11:42] LABS: BACTERIA MANY /hpf (NONE SEEN); BILIRUBIN NEGATIVE (NEGATIVE); EPITHELIAL CELLS NSEEN /hpf (0-5); GLUCOSE NEGATIVE (NEGATIVE); KETONE NEGATIVE (NEGATIVE); MUCUS <1+ /lpf (NONE SEEN); PROTEIN 3+ mg/dL (NEGATIVE); UROBILINOGEN NORMAL (NORMAL); WHITE CELLS - URINE OCC /hpf (0-5)
[2016-09-01 12:12] VITALS: BP 108/53
--- NOTE | 2016-09-01 12:46 | NUR ---
CM FA[facility] UPDATE [facility]. [facility] IS WORKING ON AUTHORIZATION.
--- NOTE | 2016-09-01 12:47 | NUR ---
RESTING QUIETLY IN BED. VISITORS AT BEDSIDE. PATIENT RESPONDS APPROPRIATELY BUT UNABLE TO SQUEEZE FINGERS. VISITORS REPORT A BIG DECLINE IN CONDITION OVER THE WEEKEND. LUNGS ARE CLEAR BILATERALLY, NO COUGH NOTED. WILL CONTINUE TO MONITOR.
--- NOTE | 2016-09-01 13:55 | NUR ---
LYING IN BED WITH EYES CLOSED. RESP EVEN AND UNALBORED. CALL LIGHT IN REACH.
--- NOTE | 2016-09-01 15:50 | NUR ---
RESPIRATORY IN ROOM AT THIS TIME FOR BREATHING TREATMENT.
[2016-09-01 16:58] VITALS: BP 145/66
--- NOTE | 2016-09-01 17:08 | NUR ---
IV CEREBYX ORDERED. FAMILY IN ROOM. CALL LIGHT IN REACH.
--- NOTE | 2016-09-01 18:51 | NUR ---
NO CHANGES IN INITIAL ASSESSMENT. CALL LIGHT IN REACH. BED ALARM ON. SCDs TO BLE. WILL CONTINUE WITH PLAN OF CARE.
--- NOTE | 2016-09-01 19:20 | NUR ---
RECIEVED SHIFT REPORT. PT IS LYING IN BED. ALERT AND ORIENTED AND ABLE TO VERBALIZE NEEDS. IV IS PATENT AND SALINE LOC AT THIS TIME. O2 @ 4 PER NASAL CANNULA. SCD'S ON. PT REQUIRES ASSISTANCE TURNING IN BED FOR COMFORT AND SKIN CARE. PT DENIES ANY PAIN AT THIS TIME. NO NEEDS ARE VERBALIZED AT THIS TIME. WILL CONTINUE TO MONITOR. SIDE RAILS ARE UP X 2. BED IS IN LOWEST POSITION. BOX ALARM IS ON FOR SAFETY. CALL LIGHT IS WITHIN REACH.
[2016-09-01 20:00] VITALS: BP 154/78
--- NOTE | 2016-09-01 21:01 | NUR ---
SHIFT ASSESSMENT COMPLETED. NIGHT MEDS GIVEN WITH NO PROBLEMS. NO NEEDS ARE VERBALIZED AT THIS TIME. VISITOR AT BEDSIDE. SIDE RAILS X 2. BED LOW. BOX ALARM ON. CALL LIGHT IN REACH.
[2016-09-02] VITALS: BP 140/97
[2016-09-02 04:00] VITALS: BP 155/81
[2016-09-02 04:44] LABS: BASOPHILS 0.1 % (0.0-2.0); EOSINOPHILS 0 % (0-7); HEMATOCRIT 30.5 % (36.0-48.0); HEMOGLOBIN 9.4 g/dL (12-16); IMMATURE GRANULOCYTES 0.8 % (0-5); LYMPHOCYTES 6.5 % (15-50); MCH 25.2 pg (26.0-34.0); MCHC 30.8 g/dL (31.0-37.0); MCV 81.8 fL (80.0-100.0); MEAN PLATELET VOLUME 9.6 fL (7.4-10.4); MONOCYTES 6.5 % (2-11); NEUTROPHILS 86.1 % (40-80); PLATELET COUNT 223 10x3/uL (130-400); RBC 3.73 10x6/uL (4.00-5.40); RDW 20.7 % (11.5-14.5); WBC 23.4 10x3/uL (4.8-10.8)
[2016-09-02 04:58] LABS: ANION GAP 13.5 mmol/L (8-16); POTASSIUM - SERUM 3.6 mmol/L (3.5-5.1)
[2016-09-02 04:59] LABS: CARBON DIOXIDE 29.1 mmol/L (21.0-32.0); CREATININE - SERUM 0.9 mg/dL (0.6-1.3); MAGNESIUM - SERUM 2.2 mg/dL (1.8-2.4); PHOSPHOROUS 5.5 mg/dL (2.5-4.9)
--- NOTE | 2016-09-02 07:25 | NUR ---
SLEEPING AT THIS TIME. RESPIRATIONS SHALLOW, BUT UNLABORED. CALL LIGHT IN REACH, AT BEDSIDE. WILL CONTINUE WITH PLAN OF CARE.
[2016-09-02 08:20] VITALS: BP 146/75
[2016-09-02 09:16] LABS: VIRAL - RESULT No virus isolated. (())
--- NOTE | 2016-09-02 11:17 | NUR ---
SCHEDULED MEDICATIONS GIVEN AT THIS TIME. PILLS CRUSHED AND ADMINISTERED IN APPLE SAUCE AT THIS TIME. TAKEN WITHOUT DIFFICULTY. AT BEDSIDE. ASSESSMENT PERFORMED PER FLOWSHEET. CALL LIGHT IN 'S REACH. REBOLLEDO PATENT AND DRAINING TO GRAVITY. MARY MAT ALARM IN USE FOR FALL PRECAUTIONS. WILL CONTINUE WITH PLAN OF CARE.
[2016-09-02 12:30] VITALS: BP 141/61; BP 96/72
--- NOTE | 2016-09-02 13:00 | NUR ---
SCHEDULED SOLU MEDROL INITIATED AT THIS TIME. PT SLEEPING AND AT BEDSIDE. WILL CONTINUE WITH PLAN OF CARE.
--- NOTE | 2016-09-02 15:38 | NUR ---
NUTRITION MONITORING & EVAL SPEECH THERAPY NOTE REVIEWED. PT WITH ~50% INTAKE RECENT MEALS. WILL PROVIDE CURRENT DIET, ADD ENSURE TO MEALS. RD FOLLOWING
[2016-09-02 16:36] VITALS: BP 114/91
--- NOTE | 2016-09-02 19:20 | NUR ---
RECIEVED SHIFT REPORT. PT IS LYING IN BED. ALERT AND ORIENTED AND ABLE TO VERBALIZE NEEDS. IV IS PATENT AND SALINE LOC AT THIS TIME. NO SCD'S AT THIS TIME PER ORDERS. O2 @ 4 PER NASAL CANNULA. REBOLLEDO IS DRAINING URINE BY GRAVITY. PT REQUIRES ASSISTANCE TURNING IN BED FOR COMFORT AND SKIN CARE. PT STATES PAIN IS 10/10. NO NEEDS ARE VERBALIZED AT THIS TIME. AT BEDSIDE. WILL CONTINUE TO MONITOR. SIDE RAILS ARE UP X 2. BED IS IN LOWEST POSITION. BOX ALARM IS ON FOR SAFETY. CALL LIGHT IS WITHIN REACH.
[2016-09-02 20:00] VITALS: BP 155/75
--- NOTE | 2016-09-02 22:10 | NUR ---
SHIFT ASSESSMENT COMPLETED. NIGHT MEDS GIVEN CRUSHED WITH NO PROBLEMS. PT C/O PAIN 03/31. ADMINISTERED PRESCRIBED PRN MORPHINE PER ORDER. DENIES FURTHER NEEDS. WILL MONITOR. AT BEDSIDE. SIDE RAILS X 2. BED LOW. BOX ALARM ON. CALL LIGHT IN REACH.
[2016-09-03] VITALS: BP 159/81
[2016-09-03 04:00] VITALS: BP 161/89
[2016-09-03 04:35] LABS: BASOPHILS 0.1 % (0.0-2.0); EOSINOPHILS 0.1 % (0-7); HEMATOCRIT 31.4 % (36.0-48.0); HEMOGLOBIN 9.6 g/dL (12-16); IMMATURE GRANULOCYTES 0.9 % (0-5); LYMPHOCYTES 9.2 % (15-50); MCHC 30.6 g/dL (31.0-37.0); MCV 81.8 fL (80.0-100.0); MEAN PLATELET VOLUME 9.8 fL (7.4-10.4); MONOCYTES 6.4 % (2-11); NEUTROPHILS 83.3 % (40-80); RBC 3.84 10x6/uL (4.00-5.40); RDW 20.6 % (11.5-14.5); WBC 17.9 10x3/uL (4.8-10.8)
[2016-09-03 04:36] LABS: PLATELET COUNT 288 10x3/uL (130-400)
[2016-09-03 05:06] LABS: CALC OSMOLALITY 290 mosm/kg (275-300); CALCIUM 8.8 mg/dL (8.5-10.1); CARBON DIOXIDE 30.5 mmol/L (21.0-32.0); CHLORIDE - SERUM 102 mmol/L (98-107); CREATININE - SERUM 0.8 mg/dL (0.6-1.3); GLUCOSE 131 mg/dL (74-106); MAGNESIUM - SERUM 2.2 mg/dL (1.8-2.4); POTASSIUM - SERUM 3.4 mmol/L (3.5-5.1); PRO BNP 130 pg/mL (0-125); SODIUM 141 mmol/L (136-145); UREA NITROGEN 36 mg/dL (7-18); eGFR NON AFRICAN AMERICAN 78 mL/min (90-120)
--- NOTE | 2016-09-03 07:00 | NUR ---
REPORT RECIEVED ASSUMED CARE. PATIENT IN BED WITH IV INTACT. NO COMPLAINTS AT THIS TIME. CALL LIGHT WITHIN REACH. FAMILY AT BEDSIDE.
[2016-09-03 08:40] VITALS: BP 124/80
[2016-09-03 09:17] LABS: IMMUNOGLOBULIN E 78 IU/mL (0-100)
[2016-09-03 10:18] LABS: ANA REFLEX - DIRECT Negative (Negative)
[2016-09-03 11:18] LABS: IMMUNOGLOBULIN A 536 mg/dL (87-352)
--- NOTE | 2016-09-03 12:00 | NUR ---
PATIENT BACK FROM PROCEDURE. RESTING QUIETLY. NO DISTRESS. VS STABLE. WILL CONTINUE TO MONITOR. DRESSING TO RIGHT GROIN CLEAN AND DRY. CALL LIGHT WITHIN REACH.
--- NOTE | 2016-09-03 15:00 | NUR ---
PATIENT IN BED WITH IV INTACT. VS STABLE. NO PROBLEMS AT THIS TIME. CALLL LIGHT WITHIN REACH.
[2016-09-03 17:19] VITALS: BP 174/87
--- NOTE | 2016-09-03 18:51 | NUR ---
PATIENT IV RED AND HURTING. REMOVED WITH CATH TIP INTACT. PATIENT FAMILY AT BEDSIDE. NO COMPLAINTS. CALL LIGHT WITHIN REACH.
--- NOTE | 2016-09-03 21:28 | NUR ---
AWAKE,ALERT.NO COMPLIANTS AT PRESENT. GENERALIZED EDEMA NOTED TO EXTREMITIES. DRSG TO RIGHT GROIN DRY INTACT. NO DRAINAGE NOTED. REBOLLEDO PATENT AND DRAINING STRAW YELLOW URINE. FAMILY AT BEDSIDE. CL IN REACH.
[2016-09-03 21:35] VITALS: BP 114/78
[2016-09-03 23:00] VITALS: BP 171/99
[2016-09-03] MEDS ORDERED: K-TAB10 MEQ PO (23:20)
[2016-09-03] MEDS ORDERED: KLOR-CON 1010 MEQ PO (23:21)
[2016-09-03] MEDS ORDERED: CALAN SR240 MG (23:23)
[2016-09-03] MEDS ORDERED: FERROUS SULFAT140 MG (23:23)
[2016-09-03] MEDS ORDERED: OMEPRAZOLE20 M1 (23:23)
[2016-09-03] MEDS ORDERED: SINGULAIR10 MG (23:24)
[2016-09-03] MEDS ORDERED: LEVAQUIN750 MG PO (23:24)
[2016-09-03] MEDS ORDERED: CELEBREX200 MG (23:24)
[2016-09-03] MEDS ORDERED: TRIAMTERENE-HCT1 TA1 (23:25)
[2016-09-03] MEDS ORDERED: CIPRO500 MG (23:25)
--- NOTE | 2016-09-04 02:15 | NUR ---
RESTING QUIETLY. POSITIONED FOR COMFORTT. CL IN REACH.
--- NOTE | 2016-09-04 04:36 | NUR ---
PATIENT RESTING WHILE WATCHING TV. NO VISIBLE SIGNS OF DISTRESS. BED IN LOWEST POSITION AND CALL LIGHT WITHIN REACH.
[2016-09-04 04:44] LABS: BASOPHILS 0.1 % (0.0-2.0); EOSINOPHILS 0.1 % (0-7); HEMATOCRIT 31.3 % (36.0-48.0); HEMOGLOBIN 9.8 g/dL (12-16); IMMATURE GRANULOCYTES 1.4 % (0-5); LYMPHOCYTES 12.9 % (15-50); MCH 25.4 pg (26.0-34.0); MCHC 31.3 g/dL (31.0-37.0); MCV 81.1 fL (80.0-100.0); MEAN PLATELET VOLUME 9.3 fL (7.4-10.4); MONOCYTES 6.7 % (2-11); NEUTROPHILS 78.8 % (40-80); PLATELET COUNT 313 10x3/uL (130-400); RBC 3.86 10x6/uL (4.00-5.40); RDW 20.7 % (11.5-14.5); WBC 16.2 10x3/uL (4.8-10.8)
[2016-09-04 05:05] LABS: CALC OSMOLALITY 289 mosm/kg (275-300); CALCIUM 9.1 mg/dL (8.5-10.1); CARBON DIOXIDE 29.2 mmol/L (21.0-32.0); CHLORIDE - SERUM 102 mmol/L (98-107); CREATININE - SERUM 0.7 mg/dL (0.6-1.3); GLUCOSE 130 mg/dL (74-106); POTASSIUM - SERUM 3.4 mmol/L (3.5-5.1); SODIUM 141 mmol/L (136-145); UREA NITROGEN 33 mg/dL (7-18); VANCOMYCIN - TROUGH 7.7 ug/mL (10.0-20.0); eGFR NON AFRICAN AMERICAN > 90 mL/min (90-120)
--- NOTE | 2016-09-04 05:26 | NUR ---
AWAKE,ALERT. CL IN REACH. NO COMPLIANTS.
--- NOTE | 2016-09-04 07:00 | NUR ---
REPORT RECIEVED ASSUMED CARE. PATIENT IN BED WITH IV INTACT. NO COMPLAINTS. CALL LIGHT WITHIN REACH.
[2016-09-04 08:29] VITALS: BP 160/80
--- NOTE | 2016-09-04 08:30 | NUR ---
ASSESSMENT COMPLETE, VS STABLE. IV INTACT. NO COMPLAINTS AT THIS TIME. FAMILY AT BEDSIDE. CALL LIGHT WITHIN REACH.
--- NOTE | 2016-09-04 12:20 | NUR ---
PAGED DR. FOLEY ABOUT NEW PAIN IN BACK AND SHOULDERS PER FAMILY REQUEST. PATIENT WANTING NEW PAIN MEDS. MORPHINE NOT DUE AT THIS TIME.
[2016-09-04 12:43] VITALS: BP 163/76
--- NOTE | 2016-09-04 14:30 | NUR ---
CALLED CLINIC AND SPOKE WITH NURSE OF DR. SRIDEVI NOLASCO ABOUT PAIN MEDS AND NEW PAIN. STATED SHE WOULD SPEAK TO DR. LAUREANO AND CALL ME BACK.
[2016-09-04 15:48] VITALS: BP 151/83
--- NOTE | 2016-09-04 16:00 | NUR ---
RECIEVED NEW ORDERS AT THIS TIME FOR MEDS. PATIENT IN BED EYES CLOSED RESTING. CALL LIGHT WITHIN REACH. FAMILY AT BEDSIDE.
--- NOTE | 2016-09-04 18:50 | NUR ---
PATIENT IN BED EYES CLOSED RESTING QUIETLY. NO COMPLAINTS AT THIS TIME. CALL LIGHT WITHIN REACH.
--- NOTE | 2016-09-04 20:30 | NUR ---
AROUSES EASILY TO VERBAL STINULI. NO DISTRESS NOTED. EXEMITRIES CONTINUE TO HAVE EDEMA NOTED. PICC LINE TO RIGHT UPPER ARM INTACT WIHTOUT REDNESS OR EDEMA. REBOLLEDO PATENT AND DRAINING CLEAR YELLOW URINE. CL IN REACH.
[2016-09-04 21:54] VITALS: BP 124/88
[2016-09-04 22:28] LABS: MYCOPLASMA PNEUMO IGG 158 U/mL (0-99)
--- NOTE | 2016-09-05 02:57 | NUR ---
RN NOTE: PT LYING IN SEMI ROGERS'S POSITION WITH EYES CLOSED AND UNLABORED BREATHING. RIGHT PICC LINE PATENT AND INFUSING AT KVO. O2 IN USE AT 2L VIA NC. REBOLLEDO CATHETER DRAINING TO GRAVITY WITY YELLOW URINE IN COLLECTION BAG. WILL CONTINUE TO MONITOR FOR NEEDS. CALL LIGHT WITHIN REACH.
--- NOTE | 2016-09-05 06:11 | NUR ---
NO CHANGE IN ASSESSMENT. CL IN REACH. FAMILY AT BEDSIDE.
[2016-09-05 06:12] LABS: BASOPHILS 0.1 % (0.0-2.0); EOSINOPHILS 0.1 % (0-7); HEMATOCRIT 32.2 % (36.0-48.0); HEMOGLOBIN 9.9 g/dL (12-16); IMMATURE GRANULOCYTES 2.1 % (0-5); LYMPHOCYTES 11.3 % (15-50); MCH 25.1 pg (26.0-34.0); MCHC 30.7 g/dL (31.0-37.0); MCV 81.7 fL (80.0-100.0); MEAN PLATELET VOLUME 9.7 fL (7.4-10.4); MONOCYTES 6.4 % (2-11); PLATELET COUNT 354 10x3/uL (130-400); RBC 3.94 10x6/uL (4.00-5.40); RDW 21.3 % (11.5-14.5); WBC 17.8 10x3/uL (4.8-10.8)
[2016-09-05 06:31] LABS: CALC OSMOLALITY 292 mosm/kg (275-300); CALCIUM 9.5 mg/dL (8.5-10.1); CARBON DIOXIDE 31.7 mmol/L (21.0-32.0); CHLORIDE - SERUM 102 mmol/L (98-107); CREATININE - SERUM 0.7 mg/dL (0.6-1.3); GLUCOSE 129 mg/dL (74-106); POTASSIUM - SERUM 3.2 mmol/L (3.5-5.1); SODIUM 142 mmol/L (136-145); UREA NITROGEN 34 mg/dL (7-18); eGFR NON AFRICAN AMERICAN > 90 mL/min (90-120)
--- NOTE | 2016-09-05 07:25 | NUR ---
WALKING ROUNDS.PT WITHOUT DISTRESS. AT BEDSIDE.
[2016-09-05 08:44] VITALS: BP 127/91
--- NOTE | 2016-09-05 09:00 | NUR ---
ASSESSMENT PER FLOW SHEET.PT WITHOUT DISTRESS.FAMILY IN ROOM.
[2016-09-05 11:49] VITALS: BP 124/85
--- NOTE | 2016-09-05 12:30 | NUR ---
LYING IN BED,WITHOUT DISTRESS.FAMILY REMAINS AT BEDSIDE.
--- NOTE | 2016-09-05 14:10 | NUR ---
NUTRITION MONITORING & EVAL PT VISIT. FAMILY AT BEDSIDE. AHA DIET 25% INTAKE. ENSURE ADDED TO MEALS. WILL CONTINUE TO PROVIDE DIET, ENSURE. MONITOR PT PROGRESS. RD FOLLOWING
[2016-09-05 15:37] VITALS: BP 145/79
--- NOTE | 2016-09-05 19:05 | NUR ---
FAMILY IN ROOM.PT WITHOUT CHANGE.CONT PLAN OF CARE
--- NOTE | 2016-09-05 19:27 | NUR ---
Received patient resting in bed, alert and oriented x 4, at bedside. Right upper arm PICC in place. NS infusing @10ml/hr. Will continue to monitor per plan of care.
--- NOTE | 2016-09-05 21:15 | NUR ---
Given Dilaudid 1mg per IV for complaints of back pain rated at 10/10. remains at bedside.
[2016-09-05 22:05] VITALS: BP 172/91
--- NOTE | 2016-09-05 23:30 | NUR ---
Given bed bath, repositioned, bed linens changed. Comfortable at this time, call freeman place in right hand.
[2016-09-06] VITALS: BP 180/93
--- NOTE | 2016-09-06 04:28 | NUR ---
Given Dilaudid 1mg via IV for complaints of severe back pain, rated @10/10.
[2016-09-06 05:26] VITALS: BP 160/80
--- NOTE | 2016-09-06 05:30 | NUR ---
Resting quietly, reports feeling comfortable, pain level 2/10.
--- NOTE | 2016-09-06 07:11 | NUR ---
BMP not resulted yet in computer for electrolyte protocol.
[2016-09-06 07:13] LABS: HEMATOCRIT 31.6 % (36.0-48.0); HEMOGLOBIN 9.9 g/dL (12-16); MCH 25.4 pg (26.0-34.0); MCHC 31.3 g/dL (31.0-37.0); MEAN PLATELET VOLUME 9.4 fL (7.4-10.4); PLATELET COUNT 375 10x3/uL (130-400); RDW 21.2 % (11.5-14.5); WBC 20.1 10x3/uL (4.8-10.8)
[2016-09-06 07:32] LABS: CALC OSMOLALITY 287 mosm/kg (275-300); CARBON DIOXIDE 31.5 mmol/L (21.0-32.0); CHLORIDE - SERUM 102 mmol/L (98-107); CREATININE - SERUM 0.7 mg/dL (0.6-1.3); GLUCOSE 121 mg/dL (74-106); POTASSIUM - SERUM 3.5 mmol/L (3.5-5.1); SODIUM 140 mmol/L (136-145); UREA NITROGEN 34 mg/dL (7-18); VANCOMYCIN - TROUGH 46.1 ug/mL (10.0-20.0); eGFR NON AFRICAN AMERICAN > 90 mL/min (90-120)
[2016-09-06 07:33] LABS: LYMPHOCYTES 19 % (15-50); MONOCYTES 2 % (2-11); NEUTROPHILS 79 % (40-80); PLATELET ESTIMATE NORMAL
[2016-09-06 08:57] VITALS: BP 136/69
--- NOTE | 2016-09-06 09:00 | NUR ---
ASSESSMENT PER FLOW SHEET.PT WITHOUT DISTRESS.MONITOR FOR NEEDS.
[2016-09-06 12:24] VITALS: BP 133/71
[2016-09-06 16:02] VITALS: BP 122/93
--- NOTE | 2016-09-06 19:37 | NUR ---
REMAINS WITHUT NEEDS,WITHOUT CHANGE.CONT PLAN OF CARE
--- NOTE | 2016-09-06 19:58 | NUR ---
PATIENT RESTING WITH EYES CLOSED IN SEMI-FOWLERS POSITION. FAMILY AT BEDSIDE. NO VISIBLE SIGNS OF DISTRESS. BED IN LOWEST POSITION AND CALL LIGHT WITHIN REACH.
[2016-09-06 20:00] VITALS: BP 200/96
[2016-09-07] VITALS: BP 165/94
[2016-09-07 04:00] VITALS: BP 201/94
--- NOTE | 2016-09-07 05:26 | NUR ---
PATIENT'S BP 201/94. ADMINISTERED LABETALOL PER ORDER.
[2016-09-07 06:06] LABS: BASOPHILS 0.1 % (0.0-2.0); EOSINOPHILS 0.1 % (0-7); HEMATOCRIT 34.9 % (36.0-48.0); HEMOGLOBIN 10.6 g/dL (12-16); IMMATURE GRANULOCYTES 2.9 % (0-5); LYMPHOCYTES 9.6 % (15-50); MCH 25.1 pg (26.0-34.0); MCHC 30.4 g/dL (31.0-37.0); MCV 82.5 fL (80.0-100.0); MEAN PLATELET VOLUME 9.5 fL (7.4-10.4); MONOCYTES 5.9 % (2-11); NEUTROPHILS 81.4 % (40-80); PLATELET COUNT 417 10x3/uL (130-400); RBC 4.23 10x6/uL (4.00-5.40); RDW 21.3 % (11.5-14.5); WBC 19.9 10x3/uL (4.8-10.8)
[2016-09-07 06:41] LABS: CALC OSMOLALITY 288 mosm/kg (275-300); CALCIUM 9.3 mg/dL (8.5-10.1); CARBON DIOXIDE 29.5 mmol/L (21.0-32.0); CHLORIDE - SERUM 102 mmol/L (98-107); CREATININE - SERUM 0.7 mg/dL (0.6-1.3); GLUCOSE 124 mg/dL (74-106); POTASSIUM - SERUM 3.6 mmol/L (3.5-5.1); SODIUM 139 mmol/L (136-145); UREA NITROGEN 40 mg/dL (7-18); eGFR NON AFRICAN AMERICAN > 90 mL/min (90-120)
[2016-09-07 07:53] VITALS: BP 137/83
--- NOTE | 2016-09-07 08:00 | NUR ---
WALKING ROUNDS.PT WITHOUT DISTRESS,BUT C/O ABDOMINAL DISCOMFORT.FAMILY AT BEDSIDE.
--- NOTE | 2016-09-07 09:00 | NUR ---
ASSESSMENT PER FLOW SHEET.PT WITHOUT DISTRESS THIS AM.MEDS ORDERED FOR PAIN AND NAUSEA.MONITOR.
--- NOTE | 2016-09-07 09:00 | NUR ---
ASSESSMENT PER FLOW SHEET.PT WITHOUT DISTRESS.DRESSING TO ABD HAS MINIMAL PINKISH/BROWN DRAINAGE.PAIN CONTROLED WITH FUR REPAIR INSPECTOR.CALL LIGHT IN REACH
[2016-09-07 11:10] VITALS: BP 166/88
--- NOTE | 2016-09-07 12:30 | NUR ---
DECLINES FL DIET AT PRESENT,BUT WANTS PARK [place] TURNED OFF TO SEE IF SHE KEEPS FROM GETTING NAUSEA FROM CL DIET.
[2016-09-07 15:56] VITALS: BP 164/82
--- NOTE | 2016-09-07 18:36 | NUR ---
FL DIET FOR DINNER,TOLERATING WELL.PT HAS AMBULATED IN HALLS MULTIPLE TIMES TODAY.STATES SHE HAS PASSED GAS,BUT NO BM.DRESSINGS CHANGED ON ABDOMEN USING ASEPTIC TECH.TOLERATED WELL.CONT PLAN OF CARE.
--- NOTE | 2016-09-07 18:40 | NUR ---
HAS REMAINED WITHOUT NAUSEA THROUGHOUT DAY.MOM GIIVEN X2.PT DECLINES SUPPOSITORY ORDERED,BUT WISHES TO TAKE MOM.SHE DID SLIGHTLY MOVE HER HEAD TODAY X2.SHE STATES SHE IS FEELING BETTER.NO HEADACHES TODAY.SHE ATE ALMOST ALL OF HER LUNCH AND DINNER.WITHOUT CHANGE.CONT PLAN OF CARE
[2016-09-07 19:00] VITALS: BP 163/78
--- NOTE | 2016-09-07 19:35 | NUR ---
PATIENT RESTING WITH EYES CLOSED IN SEMI-FOWLERS POSITION. NO VISIBLE SIGNS OF DISTRESS. BED IN LOWEST POSITION AND CALL LIGHT WITHIN REACH.
--- NOTE | 2016-09-07 20:12 | NUR ---
PATIENT HAS 10/[address] RAMSEY AND HE ORDERED DILAUDID TO BE RESTARTED.
[2016-09-08] VITALS: BP 184/81
[2016-09-08 04:00] VITALS: BP 194/95
[2016-09-08 06:22] LABS: BASOPHILS 0.1 % (0.0-2.0); EOSINOPHILS 0 % (0-7); HEMATOCRIT 31.5 % (36.0-48.0); IMMATURE GRANULOCYTES 1.5 % (0-5); LYMPHOCYTES 11.1 % (15-50); MCH 25.8 pg (26.0-34.0); MCHC 31.7 g/dL (31.0-37.0); MCV 81.4 fL (80.0-100.0); MEAN PLATELET VOLUME 9.1 fL (7.4-10.4); MONOCYTES 6.2 % (2-11); NEUTROPHILS 81.1 % (40-80); PLATELET COUNT 354 10x3/uL (130-400); RBC 3.87 10x6/uL (4.00-5.40); RDW 21.5 % (11.5-14.5)
[2016-09-08 06:26] LABS: WBC 12.4 10x3/uL (4.8-10.8)
[2016-09-08 06:47] LABS: ALKALINE PHOSPHATASE 63 U/L (46-116); ALT (SGPT) 76 U/L (10-68); BILIRUBIN - TOTAL 0.26 mg/dL (0.2-1.3); CALC OSMOLALITY 291 mosm/kg (275-300); CALCIUM 8.6 mg/dL (8.5-10.1); CHLORIDE - SERUM 105 mmol/L (98-107); CREATININE - SERUM 0.6 mg/dL (0.6-1.3); GLUCOSE 131 mg/dL (74-106); MAGNESIUM - SERUM 2.4 mg/dL (1.8-2.4); POTASSIUM - SERUM 3.7 mmol/L (3.5-5.1); PROTEIN - SERUM 6.6 g/dL (6.4-8.2); SODIUM 141 mmol/L (136-145); UREA NITROGEN 38 mg/dL (7-18); eGFR NON AFRICAN AMERICAN > 90 mL/min (90-120)
[2016-09-08 08:14] VITALS: BP 177/87
--- NOTE | 2016-09-08 08:51 | NUR ---
PT AO RESP EVEN AND NONLABORED IV TO RIGHT PICC LINE PATENT AND INTACT PT DENIES NEEDS AT THIS TIME BED AT LOWEST SETTING CALL LIGHT WITHIN REACH. AT BEDSIDE WILL CONTINUE TO MONITOR
[2016-09-08 12:07] VITALS: BP 113/70
[2016-09-08 15:29] VITALS: BP 114/62
[2016-09-09 04:00] VITALS: BP 125/90
[2016-09-09 06:43] LABS: BASOPHILS 0.1 % (0.0-2.0); EOSINOPHILS 0 % (0-7); HEMATOCRIT 33.1 % (36.0-48.0); HEMOGLOBIN 10.3 g/dL (12-16); IMMATURE GRANULOCYTES 1.3 % (0-5); LYMPHOCYTES 11.9 % (15-50); MCH 25.4 pg (26.0-34.0); MCHC 31.1 g/dL (31.0-37.0); MCV 81.7 fL (80.0-100.0); MEAN PLATELET VOLUME 8.9 fL (7.4-10.4); MONOCYTES 5.8 % (2-11); NEUTROPHILS 80.9 % (40-80); PLATELET COUNT 357 10x3/uL (130-400); RBC 4.05 10x6/uL (4.00-5.40); RDW 21.6 % (11.5-14.5); WBC 14.3 10x3/uL (4.8-10.8)
[2016-09-09 07:05] LABS: CALC OSMOLALITY 280 mosm/kg (275-300); CALCIUM 8.5 mg/dL (8.5-10.1); CARBON DIOXIDE 29.4 mmol/L (21.0-32.0); CHLORIDE - SERUM 102 mmol/L (98-107); CREATININE - SERUM 0.7 mg/dL (0.6-1.3); GLUCOSE 109 mg/dL (74-106); POTASSIUM - SERUM 3.7 mmol/L (3.5-5.1); SODIUM 137 mmol/L (136-145); UREA NITROGEN 29 mg/dL (7-18); eGFR NON AFRICAN AMERICAN > 90 mL/min (90-120)
[2016-09-09 07:58] VITALS: BP 169/82
--- NOTE | 2016-09-09 08:17 | EC ---
PATIENT:MARK CASTREJON DATE OF SERVICE: 08/21/16 SEX: F MEDICAL RECORD: [id number] DATE OF : [birth year] LOCATION:D[id number] AGE OF PATIENT: 60 ADMISSION DATE: 08/21/16 REFERRING PHYSICIAN: INTERPRETING PHYSICIAN: BLADIMIR ANGEL M.D. ECHOCARDIOGRAM REPORT ECHO CHARGES 4 ECHO COMPLETE CLINICAL DIAGNOSIS: SOB HX OF HTN ECHOCARDIOGRAPHIC MEASUREMENTS (adult normal given) AC root (d.<3.7cm) 3.4 LV Septum d (<1.2 cm> 1.4 Valve Excursion 1.5 LV Septum (systole) 1.6 Left Atria (s.<4.0cm> 3.9 LVPW d(<1.2cm) 1.3 RV (d.<2.3cm) 4.0 LVPW (sytole) 1.7 LV diastole(<5.6CM) 4.7 MV E-F(>70mm/sec) LV systole 3.2 LVOT Diameter 1.4 MV exc.(>10mm) 1.6 Est.ejection fraction (50-75%) Pericardial Effusion N DOPPLER: LVIT A 85.0 E 62.0 LA RVSP 18 LVOT 107 AOP1/2T Asc. Ao 120 RVOT RA PA AV Gradient Peak 5.74 AV Mean 3.0 AV Area 1.2 MV Gradient Peak 3.36 MV Mean 1.70 MV Area COMMENTS: Director Dance: Kavita REZA Thermocouple Tester:Kavita Angel TAPE# PACS DATE OF SERVICE: 09/02/2016 REFERRING PHYSICIAN: Shane Wilde MD INDICATION: Dyspnea, hypertension. DESCRIPTION: Left ventricle demonstrates left ventricular hypertrophy. No wall motion abnormalities are noted. Estimated ejection fraction is 55%. Mitral valve is structurally normal. There is no regurgitation or prolapse seen. Left atrium is normal in size. The aortic valve appears trileaflet. There is no ECHOCARDIOGRAM REPORT [id number] MARK CASTREJON stenosis or regurgitation seen. Right ventricle is mildly dilated. Tricuspid valve is structurally normal. There is trivial regurgitation seen. Right atrium is normal in size. There is no pericardial effusion noted. IMPRESSION: 1. Left ventricular hypertrophy with preserved ejection of 55%. 2. Trivial tricuspid regurgitation. TRANSINT:[id number] Voice Confirmation ID: [id number] DOCUMENT ID: [id number] BLADIMIR ANGEL M.D. at 0817 CC: [id number] DICTATION DATE: 09/03/16 08 CONDUCTOR/BRAKEMAN: 09/04/16 0234 ADM IN [facility] [address] [id number]
--- NOTE | 2016-09-09 08:21 | NUR ---
PT AOX4 RESP EVEN AND NONLABORED PT DENIES NEEDS AT THIS TIME IV PICC TO RIGHT AC PATENT AND INTACT BED AT LOWEST SETTING CALL LIGHT WITHIN REACH AND FAMILY AT BEDSIDE
[2016-09-09 11:45] VITALS: BP 165/70
[2016-09-09 15:16] VITALS: BP 154/75
[2016-09-09 20:00] VITALS: BP 182/86
[2016-09-10] VITALS: BP 181/90
[2016-09-10 04:00] VITALS: BP 173/82
[2016-09-10 04:59] LABS: BASOPHILS 0.1 % (0.0-2.0); EOSINOPHILS 0 % (0-7); HEMATOCRIT 32.4 % (36.0-48.0); HEMOGLOBIN 9.9 g/dL (12-16); IMMATURE GRANULOCYTES 1.5 % (0-5); LYMPHOCYTES 10.8 % (15-50); MCH 25.3 pg (26.0-34.0); MCHC 30.6 g/dL (31.0-37.0); MCV 82.7 fL (80.0-100.0); MEAN PLATELET VOLUME 8.7 fL (7.4-10.4); MONOCYTES 7.5 % (2-11); NEUTROPHILS 80.1 % (40-80); PLATELET COUNT 338 10x3/uL (130-400); RBC 3.92 10x6/uL (4.00-5.40); RDW 21.7 % (11.5-14.5); WBC 14.2 10x3/uL (4.8-10.8)
[2016-09-10 05:15] LABS: CALC OSMOLALITY 286 mosm/kg (275-300); CALCIUM 8.6 mg/dL (8.5-10.1); CARBON DIOXIDE 29.9 mmol/L (21.0-32.0); CHLORIDE - SERUM 105 mmol/L (98-107); CREATININE - SERUM 0.6 mg/dL (0.6-1.3); GLUCOSE 127 mg/dL (74-106); POTASSIUM - SERUM 3.5 mmol/L (3.5-5.1); SODIUM 141 mmol/L (136-145); UREA NITROGEN 25 mg/dL (7-18); eGFR NON AFRICAN AMERICAN > 90 mL/min (90-120)
[2016-09-10 08:26] VITALS: BP 170/78
[2016-09-10 09:27] LABS: APPEARANCE CLOUDY (CLEAR); BACTERIA FEW /hpf (NONE SEEN); BILIRUBIN NEGATIVE (NEGATIVE); COLOR YELLOW (YELLOW); EPITHELIAL CELLS 0-5 /hpf (0-5); GLUCOSE NEGATIVE (NEGATIVE); GRANULAR CAST RARE /lpf (NONE SEEN); KETONE NEGATIVE (NEGATIVE); LEUKOCYTE ESTERASE TRACE (NEGATIVE); MUCUS >1+ /lpf (NONE SEEN); NITRITE NEGATIVE (NEGATIVE); PROTEIN NEGATIVE (NEGATIVE); RED CELLS - URINE >50 /hpf (0-5); SPECIFIC GRAVITY 1.025 (1.005-1.020); UROBILINOGEN NORMAL (NORMAL); WHITE CELLS - URINE 0-5 /hpf (0-5)
[2016-09-10 12:18] VITALS: BP 158/73
--- NOTE | 2016-09-10 13:17 | NUR ---
RIGHT AC IV SITE DRESSING CHANGED WITHOUT DIFFICULTY AT THIS TIME WITH STERILE TECHNIQUE
--- NOTE | 2016-09-10 14:54 | NUR ---
NUTRITION MONITORING & EVAL CHART REVIEWED. PT CURRENTLY SLEEPING. INTAKE RECORDS INDICATE IMPROVING PO INTAKE. ENSURE PROVIDED WITH MEALS. RD FOLLOWING
[2016-09-10 16:29] VITALS: BP 165/75
[2016-09-10 19:00] VITALS: BP 183/88
[2016-09-11] VITALS (13 sets, daily range): BP systolic 106–197; BP diastolic 71–98; Ht 172.7 cm; Wt 104.2 kg
--- NOTE | 2016-09-11 00:53 | NUR ---
ASSESSED AT THE BEGINNING OF THE SHIFT. PT IS ALERT AND ORIENTED, BUT HAS PROBLEMS WITH WEAKNEDS AND MOVEMENT. SHE HAS A RIGHT PICC AND A REBOLLEDO CATH. ON A FIRST STEP MATTRESS. SHE IS A TURNING PT PER PROTOCOL. THERE WAS COMPANY AT THE FIRST OF THE SHIFT. LATER WHEN TAKING HER MEDS SHE COMPLAINED OF HER MOUTH BURNING. WE WILL TALK WITH THE MD ABOUT NYSTATIN FOR THIS A FOR A VAGINAL YEAST INFECTION. AT MIDNIGHT SHE WAS HAVING SPASMS AND WAS GIVEN DILAUDID WHICH HELPED HER GO TO SLEEP AND THE SPASMS WERE NO LONGER AN ISSUE. THE BED IS LOW, RAILS UP X'S 2 AND CALL LIGHT AT HAND.
[2016-09-11 05:11] LABS: ALBUMIN 2.2 g/dL (3.4-5.0); ALKALINE PHOSPHATASE 52 U/L (46-116); ALT (SGPT) 57 U/L (10-68); BILIRUBIN - TOTAL 0.25 mg/dL (0.2-1.3); CALC OSMOLALITY 283 mosm/kg (275-300); CALCIUM 8.6 mg/dL (8.5-10.1); CARBON DIOXIDE 30.8 mmol/L (21.0-32.0); CHLORIDE - SERUM 105 mmol/L (98-107); CREATININE - SERUM 0.6 mg/dL (0.6-1.3); GLUCOSE 107 mg/dL (74-106); PROTEIN - SERUM 6.3 g/dL (6.4-8.2); SODIUM 141 mmol/L (136-145); UREA NITROGEN 22 mg/dL (7-18); eGFR NON AFRICAN AMERICAN > 90 mL/min (90-120)
[2016-09-11 06:57] LABS: BASOPHILS 0.1 % (0.0-2.0); EOSINOPHILS 0 % (0-7); HEMATOCRIT 33.5 % (36.0-48.0); HEMOGLOBIN 10.3 g/dL (12-16); IMMATURE GRANULOCYTES 1.4 % (0-5); LYMPHOCYTES 8.4 % (15-50); MCH 25.6 pg (26.0-34.0); MCHC 30.7 g/dL (31.0-37.0); MCV 83.1 fL (80.0-100.0); MEAN PLATELET VOLUME 9.2 fL (7.4-10.4); MONOCYTES 7.1 % (2-11); PLATELET COUNT 343 10x3/uL (130-400); RBC 4.03 10x6/uL (4.00-5.40); RDW 22.8 % (11.5-14.5)
--- NOTE | 2016-09-11 19:43 | NUR ---
PT SEEN TODAY FOR DIET TOLERANCE ANALYSIS AND SPEECH THERAPY. NURSING REPORTED PT WITH NO DIFFICULTY FUNCTIONALLY COMMUNICATING WANTS AND NEEDS, AND NO DIFFICULTY SWALLOWING; CLEARED PT FOR PARTICIPATION. PT AWAKE, LETHARGIC, AND LONG-SITTING IN BED UPON CLINICIAN ARRIVAL. PT AT BEDSIDE. PT DENIED PAIN; BREATHING ROOM AIR. CLINCIAN ELEVATED HOB TO 90 DEGREES. PT PRESENTED WITH HEAD LEANING TO LEFT DURING MEALS AND PT HAD MINIMAL RESIDUE FROM PREVIOUS MEAL IN LEFT BUCCAL CAVITY; PT SUCCESSFULLY REMOVED RESIDUE WITH LINGUAL SWEEP. PT WAS GIVEN TRIALS OF SOLIDS AND THIN LIQUIDS WITH NO OVERT S/SX OF ASPIRATION. CLINIICIAN RECOMMEDS PT CONTINUE CURRENT DIET WITH GENERAL SWALLOW PRECAUTIONS. CLINCIAN REVIEWED SWALLOWIGN PRECAUTIONS WITH PT AND HER ; BOTH VERBALIZED UNDERSTANDING. PT ANSWERED SIMPLE, FUNCTIOINAL YES/NO QUESTIONS WITH 100% ACCURACY AND FOLLOWED SIMPLE ONE-STEP DIRECTIONS WITH 100% ACCURACY. NURSING INFORMED.
--- NOTE | 2016-09-11 21:30 | NUR ---
PATIENT VERY TACHYPNEIC. HER FACE IS RED AND SHE IS C/O BURNING CHEST PAIN AND SOB. O2 94% HR 84 BP 124/86 RR 30. ASKED RESPIRATORY TO CHECK HER. PATIENT TOLD RT JO ANN THAT THE CHEST PAIN IS RADIATING TO HER JAW. JO ANN OBTAINED AN EKG. DR. REGAN IN COUNTS INCLUDE 234 BEDS AT THE [facility], STOPPED TO TALK TO PATIENT'S AND NOTICED THAT PATIENT IS NOW BREATHING ABOUT 45-50 A MINUTE. JO ANN INFORMED HIM OF THE PATIENT'S CHEST PAIN. DR. REGAN CALLED DR. SCHULTE WHO ORDERED A PULMONARY AND CARDIOLOGY CONSULT AND TRANSFER TO ICU. REPORT CALLED TO MATTIE.
--- NOTE | 2016-09-11 22:12 | NUR ---
pt arrived FROM FLOOR WITH POSSIBLE PE. RR 54, O2 SAT 96%. HR 79 B/P 125/79. TEMP 97.9. LUNG SOUND CTA THROUGHOUT. S1S2 NSR ON MONITOR. GENERALIZED BRUISING, EDEMA, AND WEAKNESS. PULSES DOPPLERED AND MARKED. ON 2L NC.
--- NOTE | 2016-09-11 22:30 | NUR ---
EKG NORMAL, TROPONIN WNL, AND PATIENT HAS NOT COMPLAINED OF CHEST PAIN SINCE BEING IN ICU. RESTING COMFORTABLY IN BED, VSS.
[2016-09-11 22:42] LABS: BASOPHILS 0 % (0.0-2.0); EOSINOPHILS 0 % (0-7); HEMATOCRIT 32.9 % (36.0-48.0); HEMOGLOBIN 10.3 g/dL (12-16); IMMATURE GRANULOCYTES 0.9 % (0-5); LYMPHOCYTES 3.8 % (15-50); MCH 25.9 pg (26.0-34.0); MCHC 31.3 g/dL (31.0-37.0); MCV 82.9 fL (80.0-100.0); MEAN PLATELET VOLUME 8.7 fL (7.4-10.4); MONOCYTES 2.1 % (2-11); NEUTROPHILS 93.2 % (40-80); PLATELET COUNT 277 10x3/uL (130-400); RBC 3.97 10x6/uL (4.00-5.40); RDW 22.8 % (11.5-14.5); WBC 12.7 10x3/uL (4.8-10.8)
--- NOTE | 2016-09-11 23:00 | NUR ---
REASSESSMENT COMPLETE, PATIENT COMPLAINING OF MUSCLE CRAMPS IN ARMS AND LEGS, STATES THESE ARE CHRONIC AND HAPPEN AT HOME. PRN MEDICINE GIVEN FOR SPASMS ALOND WITH PAIN MED. WILL REASSESS. NO OTHER ACUTE CHANGES.
[2016-09-11 23:01] LABS: ALBUMIN 2.3 g/dL (3.4-5.0); ALKALINE PHOSPHATASE 55 U/L (46-116); ALT (SGPT) 55 U/L (10-68); BILIRUBIN - TOTAL 0.31 mg/dL (0.2-1.3); CALCIUM 8.4 mg/dL (8.5-10.1); CARBON DIOXIDE 26.5 mmol/L (21.0-32.0); CHLORIDE - SERUM 101 mmol/L (98-107); POTASSIUM - SERUM 3.8 mmol/L (3.5-5.1); PROTEIN - SERUM 6.2 g/dL (6.4-8.2); SODIUM 139 mmol/L (136-145); UREA NITROGEN 21 mg/dL (7-18); eGFR NON AFRICAN AMERICAN 78 mL/min (90-120)
[2016-09-11 23:04] LABS: INR 1.22 (0.85-1.17); PROTIME 15.3 SECONDS (11.6-15.0)
[2016-09-11 23:09] LABS: CALC OSMOLALITY 285 mosm/kg (275-300); CREATININE - SERUM 0.8 mg/dL (0.6-1.3); GLUCOSE 194 mg/dL (74-106)
--- NOTE | 2016-09-11 23:30 | NUR ---
DR MONTES CALLED WITH [facility] DUE TO ELEVATED LACTIC ACID. ORDERS RECEIVED.
[2016-09-12] VITALS (24 sets, daily range): BP systolic 92–163; BP diastolic 63–118
--- NOTE | 2016-09-12 01:05 | NUR ---
PATIENT RESTING QUIETLY IN BED WITH EYES CLOSED, VSS.
--- NOTE | 2016-09-12 03:15 | NUR ---
PATIENT COMPLAINING OF SPASMS AGAIN, PRN PAIN MED GIVEN. VSS.
[2016-09-12 03:47] LABS: BASOPHILS 0.1 % (0.0-2.0); EOSINOPHILS 0 % (0-7); HEMATOCRIT 32.9 % (36.0-48.0); HEMOGLOBIN 9.9 g/dL (12-16); LYMPHOCYTES 5.6 % (15-50); MCH 25.3 pg (26.0-34.0); MCHC 30.1 g/dL (31.0-37.0); MCV 84.1 fL (80.0-100.0); MEAN PLATELET VOLUME 8.7 fL (7.4-10.4); MONOCYTES 5.8 % (2-11); NEUTROPHILS 87.5 % (40-80); PLATELET COUNT 301 10x3/uL (130-400); RBC 3.91 10x6/uL (4.00-5.40); RDW 23.3 % (11.5-14.5); WBC 12.4 10x3/uL (4.8-10.8)
[2016-09-12 04:33] LABS: CALC OSMOLALITY 283 mosm/kg (275-300); CALCIUM 8.2 mg/dL (8.5-10.1); CARBON DIOXIDE 28.6 mmol/L (21.0-32.0); CHLORIDE - SERUM 103 mmol/L (98-107); CREATININE - SERUM 0.7 mg/dL (0.6-1.3); GLUCOSE 168 mg/dL (74-106); POTASSIUM - SERUM 3.5 mmol/L (3.5-5.1); SODIUM 139 mmol/L (136-145); UREA NITROGEN 18 mg/dL (7-18); eGFR NON AFRICAN AMERICAN > 90 mL/min (90-120)
--- NOTE | 2016-09-12 19:00 | NUR ---
1900- ASSESSMENT COMPLETE PER FLOWSHEET, SEE FOR DETAILS. PATIENT ALERT AND ORIENTED, SAYING SHE IS CRAMPING IN BACK AND SHOULDER. LUNG SOUNDS CLEAR, S1S2, BOWEL SOUNDS ACTIVE X4. REBOLLEDO DRIANING ABER COLORED URINE TO GRAVITY. PERIPHERAL PULSES PALAPABLE. PICC LINE IN GRICELDA IS C/D/I, SALINE LOCKED. VSS. 2110- PAIN MED GIVEN DUE TO CRAMPING ALL OVER BODY, AT BEDSIDE. VSS. 2300- PATIENT RESTING COMFORTABLE IN BED WITH EYES CLOSED BEFORE ENTERING ROOM, REASSESSMENT COMPLETE, NO CHANGES, PATIENT STILL COMPLAING OF CRAMPING IN HER HANDS. 0115- PATIENT RESTING WITH EYES CLOSED, VSS. 0145- PATIENT STATES SHE HAS CRAMPING IN HER LEGS AND FEET, PRN PAIN MED GIVEN. 0315- REASSESSMENT COMPLETE, NO CHANGES AT THIS TIME, SEE FLOWSHEET FOR DETAILS. 0500- RESTING WITH EYES CLOSED, VSS.
--- NOTE | 2016-09-12 20:15 | NUR ---
0730-RECIEVED PER FLOW SHEET- PT CRYING STATING HURTING -BACK LEGS CHEST SHOULDERS-OFFERED ORDERED NORCO -PT MADE INTELLIGIBLE SOUNDS-DR WEBB NOTIFIED OF CURRENT STATUS-BICARB IV STOPPED ORDERED-LINE SALINE FLUSHED --LACTIC ACID-SERUM ORDERED-DR KLINE AT [facility]-NO ADDITIONAL ORDERS- 0810-DR WISE AT [facility]-INFORMED OF PAIN03/31-NO ADDITIONAL ORDER DIRECITED TO GIVE NORCO ORDERED-INFORMED PT -SAME AGREED TO PAIN PILL-AND EASILY TOOK 0900-FAMILY AT [facility]-DR DEE AT [facility]-DAUGHTER ADDRESSED REQUEST FOR PT TO HAVE DILAUDID-INFORMED OF DR WISE STATING NO DILAUDID-DR DEE DEFERED TO DR WISE-ORDER RECIEEVD AND NOTED 0945-DR MONTES IN UNIT AND ANSWERED CONCERNS REGARDING DECREASE I PAIN MEDICATION-ECHO AT [facility] STARTED - APPEARS IN AGREEMENT TO PAIN MANAGEMENT REGIMEN BY DR [id number] PO GIVEN 1345-NOTED NIBP 70/48-77/52-AND FINAL RECHECK--NOTIFIED DR SCHULTE SENIOR DATA ANALYST FOR DR WISE-SAME EXPRESSED CONCERN DILAUDID GIVEN--STRESSED NOT REORDERED BY ANY MD AND PAIN REGIMEN FOLLOWED-PRN N/S FLUID CHANLLENGE ORDER OBTAINED-DR DEE NOTIIFED OF NIBP-CURRENTLY INCREASED TO 115/68-WITH NO INTERVENTION-REVIEWED NIBP MEDS AND ORDERS RECIEVED AND NOTED 1500-SISTER AT [facility] AND EXPRESSED STRONG FRUSTRATION AT DILAUDID NOT BEING RESTARTED- INFORMED SAME SUBJECT APPROACHED WITH DR SCHULTE AT 1330-AND CNTINUE CURRENT PAIN REGIMEN-APPROACHED SISTER WHY SHE FELT WOULD BENEFIT FROM STRONG NARCOTIC-STATED FELT PT PAIN REQUIRED IT-
--- NOTE | 2016-09-12 20:27 | NUR ---
1610-NORCO 5MG PO GIVEN- 1630-DR WISE IN UNIT AND REVIEWED PT PAIN LEVEL-NOTED PT APPEARS TO BE ASLEEP WITH RESP RATE 16-NOTED AWAKENED PT TO QUESTION [id number] CRYING-NO ADDITIONAL ORDERS RECIVED 1814-SISTER AT BEDSIDE-AND CONTINUED TO STRESS-PT PAIN LEVEL NOT BEING ADDRESSED-INFORMED OF ALL THREE CHECKS WITH MD FOR PAIN MANAGEMENT-STRESSED CURRENT PAIN MANAGEMENT REGIMEN ONLY-NOTED PT INCREASED ALERTNESS-SISTER STARTED TO QUESTION IF FLEXERIL COULD BE STARTED.- AT BEDSIDE-DID NOT VOICE CONCERN FOR SAME
[2016-09-13] VITALS (15 sets, daily range): BP systolic 101–154; BP diastolic 69–118
[2016-09-13 05:23] LABS: BASOPHILS 0.1 % (0.0-2.0); EOSINOPHILS 0 % (0-7); HEMATOCRIT 36.6 % (36.0-48.0); HEMOGLOBIN 11.4 g/dL (12-16); IMMATURE GRANULOCYTES 0.7 % (0-5); LYMPHOCYTES 9.3 % (15-50); MCH 25.7 pg (26.0-34.0); MCHC 31.1 g/dL (31.0-37.0); MCV 82.4 fL (80.0-100.0); MEAN PLATELET VOLUME 8.8 fL (7.4-10.4); MONOCYTES 9.5 % (2-11); NEUTROPHILS 80.4 % (40-80); PLATELET COUNT 302 10x3/uL (130-400); RBC 4.44 10x6/uL (4.00-5.40); RDW 23.6 % (11.5-14.5); WBC 14.6 10x3/uL (4.8-10.8)
[2016-09-13 05:42] LABS: CALC OSMOLALITY 281 mosm/kg (275-300); CALCIUM 8.9 mg/dL (8.5-10.1); CHLORIDE - SERUM 102 mmol/L (98-107); CREATININE - SERUM 0.6 mg/dL (0.6-1.3); MAGNESIUM - SERUM 1.9 mg/dL (1.8-2.4); POTASSIUM - SERUM 3.6 mmol/L (3.5-5.1); SODIUM 140 mmol/L (136-145); UREA NITROGEN 19 mg/dL (7-18); eGFR NON AFRICAN AMERICAN > 90 mL/min (90-120)
[2016-09-13 05:54] LABS: GLUCOSE 111 mg/dL (74-106)
--- NOTE | 2016-09-13 13:48 | NUR ---
0715-RECIEVED AWAKE AND ALERT-CRYING STATING i'M SCARED WHY CAN'T YOU UNDERSTAND -WHEN FURTHER QUESTIONED STATED I HAVE ANXIETY-SEE EMAR FOR PAIN AND ANXIETY -DR WISE AT [facility] AND ATTEMPTED TO DISCERN PT ANXIETY-NOT ABLE TO ELABORATE- 0900-SISTER AT [facility]-QUESTIONS ANSWERED TO BEST OF ABILITY-SISTER STATED ATTEMPTING TO OBTAIN SERVICES OF DR HAQ RHEUMATOLOGY-PROVIDED HER WITH DR WISE OFFICE NUMBER FOR DR BALJIT BALTAZAR CONTACT-DR WISE NOTIFIED OF SAME-AND AGREEABLE SISTER STATED WILL HELP WITH LUNCH TRAY 1200-SISTER AT BEDSIDE-ASSISTED WITH LUNCH TRAY
--- NOTE | 2016-09-13 13:55 | NUR ---
1330-DR MONTES AT BEDSIDE AND AGREES WITH FLOOR TRANSFER-PT STATING I AM SCARED-NOT ABLE TO DISCERN REASON FOR STATEMENT-DIRECTED TO CONTINUE PRN [id number]
--- NOTE | 2016-09-13 14:02 | NUR ---
NURSING INFORMATICS PHARMACIST NOTIFIED OF TRANSFER ORDERS
--- NOTE | 2016-09-13 15:40 | NUR ---
PATIENT TO ROOM AT THIS TIME. IV INTACT. NO COMPLAINTS AT THIS TIME. ASSESSMENT COMPLETE, VS STABLE. NO REDNESS TO BUTTOCKS OR BLE UNDER BOOTS. FAMILY AT BEDSIDE. CALL LIGHT WITHIN REACH. LAYING ON LEFT SIDE.
--- NOTE | 2016-09-13 18:41 | NUR ---
PATIENT IN BED WITH IV INTACT. NO COMPLAINTS AT THIS TIME. ASSISTED TO BP. FAMILY AT BEDSIDE. CALL LIGHT WITHIN REACH.
--- NOTE | 2016-09-13 19:00 | NUR ---
PATIENT SUPINE IN BED. HOB 40 DEGREES. PATIENT IS AWAKE BUT SLIGHTLY DROWSY WITH INTERMITTENT CONFUSION. SHE IS VERY ANXIOUS AND TEARFUL. SHE IS STATING SHE IS SCARED EVEN THOUGH HER SISTER IS AT BEDSIDE. RR SHALLOW. DENIES PAIN. RIGHT PICC PATENT WITH DRESSING CDI. REBOLLEDO SECURED WITH STATLOCK AND DRAINING TO GRAVITY. FOOT DROP BOOTS TO BILATERAL FEET. REMOVED AND SKIN BENEATH WNL. PATIENT ON BEDPAN. NO OTHER NEEDS AT THIS TIME.
--- NOTE | 2016-09-13 21:00 | NUR ---
PATIENT C/O NAUSEA. ZOFRAN GIVEN. TURNED PATIENT TO LEFT SIDE.
--- NOTE | 2016-09-13 23:00 | NUR ---
PATIENT TEARFUL AND MOANING LOUDLY. REPOSITIONED PATIENT TO BACK. XANAX GIVEN.
[2016-09-14] VITALS: BP 115/72
--- NOTE | 2016-09-14 01:20 | NUR ---
PATIENT STILL VERY TEARFUL STATING THAT SHE IS "SCARED SHE IS GOING TO GET BEATEN UP." APPEARS TO BE VERY UNCOMFORTABLE. NORCO GIVEN. BATH GIVEN. REBOLLEDO CARE COMPLETE. REPOSITIONED TO RIGHT SIDE.
--- NOTE | 2016-09-14 02:00 | NUR ---
PATIENT FINALLY RESTING QUIETLY WITH NO DISTRESS NOTED.
[2016-09-14 04:00] VITALS: BP 157/73
[2016-09-14 05:01] LABS: BASOPHILS 0.1 % (0.0-2.0); EOSINOPHILS 0.2 % (0-7); HEMATOCRIT 33.4 % (36.0-48.0); HEMOGLOBIN 10.3 g/dL (12-16); IMMATURE GRANULOCYTES 0.6 % (0-5); LYMPHOCYTES 16.7 % (15-50); MCH 25.9 pg (26.0-34.0); MCHC 30.8 g/dL (31.0-37.0); MCV 84.1 fL (80.0-100.0); MEAN PLATELET VOLUME 8.9 fL (7.4-10.4); MONOCYTES 11.1 % (2-11); NEUTROPHILS 71.3 % (40-80); PLATELET COUNT 262 10x3/uL (130-400); RBC 3.97 10x6/uL (4.00-5.40); WBC 12.3 10x3/uL (4.8-10.8)
[2016-09-14 05:12] LABS: CALC OSMOLALITY 282 mosm/kg (275-300); CALCIUM 8.4 mg/dL (8.5-10.1); CARBON DIOXIDE 31.8 mmol/L (21.0-32.0); CHLORIDE - SERUM 103 mmol/L (98-107); CREATININE - SERUM 0.6 mg/dL (0.6-1.3); GLUCOSE 89 mg/dL (74-106); POTASSIUM - SERUM 3.2 mmol/L (3.5-5.1); SODIUM 141 mmol/L (136-145); UREA NITROGEN 21 mg/dL (7-18); eGFR NON AFRICAN AMERICAN > 90 mL/min (90-120)
--- NOTE | 2016-09-14 07:00 | NUR ---
REPORT RECIEVED ASSUMED CARE. PATIENT IN BED WITH IV INTACT. NO COMPLAINTS AT THIS TIME. FAMILY AT BEDSIDE. CALL LIGHT WITHIN REACH.
--- NOTE | 2016-09-14 08:00 | NUR ---
REPORT RECIEVED ASSUMED CARE. PATIENT IN BED WITH IV INTACT. NO SKIN BREAKDOWN NOTED. SKIN UNDER BOOTS CDI. NO REDNESS. SWELLING TO LEFT LEG NOTED. LAYING ON SIDE WITH NO COMPLAINTS AT THIS TIME. CALL LIGHT WITHIN REACH. HEELS ELEVATED ON PILLOW.
[2016-09-14 09:44] VITALS: BP 171/83
--- NOTE | 2016-09-14 10:30 | NUR ---
PATIENT IN BED CRYING. STATED SHE JUST WANTS TO GO HOME. AT BEDSIDE. EXPLAINED TO PATIENT THAT SHE HAS TO GET BETTER BEFORE SHE CAN GO HOME. VERBALIZED UNDERSTANDING. STILL UNHAPPY. CALL LIGHT WITHIN REACH.
[2016-09-14 11:11] VITALS: BP 127/87
--- NOTE | 2016-09-14 12:40 | NUR ---
FED PATIENT LUNCH AT THIS TIME. NO COMPLAINTS. IV INTACT. CALL LIGHT WITHIN REACH.
[2016-09-14 15:50] VITALS: BP 106/75
--- NOTE | 2016-09-14 15:55 | NUR ---
PATIENT IN BED LAYING ON BACK AT THIS TIME. NO COMPLAINTS. IV INTACT. CALL LIGHT WITHIN REACH.
--- NOTE | 2016-09-14 17:48 | NUR ---
PATIENT SITTING UP IN BED EATING AT THIS TIME. FEEDING PATIENT. NS AT BEDSIDE. IV INTACT. CALL LIGHT WITHIN REACH.
--- NOTE | 2016-09-14 19:25 | NUR ---
RECIEVED SHIFT REPORT. PT IS LYING IN BED. ALERT AND ORIENTED AND ABLE TO VERBALIZE NEEDS. IV IS PATENT AND SALINE LOC AT THIS TIME. PT REQUIRES ASSISTANCE TURNING IN BED FOR COMFORT AND SKIN CARE. REBOLLEDO IS DRAINING URINE BY GRAVITY. PT STATES PAIN IS 10/10. FOOT DROP BOOTS IN PLACE TO BILATERAL FEET. NO NEEDS ARE VERBALIZED AT THIS TIME. WILL CONTINUE TO MONITOR. VISITORS AT BEDSIDE. SIDE RAILS ARE UP X 2. BED IS IN LOWEST POSITION. CALL LIGHT IS WITHIN REACH.
[2016-09-14 20:32] VITALS: BP 144/79
--- NOTE | 2016-09-14 21:06 | NUR ---
SHIFT ASSESSMENT COMPLETED. NIGHT MEDS GIVEN WITH NO PROBLEMS. PT C/O PAIN 03/31. ADMNISTERED PRESCRIBED PRN NORCO PER ORDER. DENIES FURTHER NEEDS. AT BEDSIDE. WILL MONITOR. SIDE RAILS X 2. BED LOW. CALL LIGHT IN REACH.
--- NOTE | 2016-09-15 03:54 | NUR ---
PT IN ROOM CRYING AT THIS TIME. PT STATES SHE UPSET AND FEELING HER ANXIETY LEVEL RISE. ADMINISTERED PRESCRIBED PRN XANAX PER ORDER. DENIES FURTHER NEEDS. WILL MONITOR. SIDE RAILS X 2. BED LOW. CALL LIGHT IN REACH.
[2016-09-15 04:00] VITALS: BP 131/91
[2016-09-15 04:40] LABS: BASOPHILS 0.1 % (0.0-2.0); EOSINOPHILS 0.5 % (0-7); HEMATOCRIT 33.3 % (36.0-48.0); HEMOGLOBIN 10.5 g/dL (12-16); IMMATURE GRANULOCYTES 0.7 % (0-5); LYMPHOCYTES 20.6 % (15-50); MCH 26.6 pg (26.0-34.0); MCHC 31.5 g/dL (31.0-37.0); MCV 84.3 fL (80.0-100.0); MEAN PLATELET VOLUME 8.9 fL (7.4-10.4); MONOCYTES 10.6 % (2-11); NEUTROPHILS 67.5 % (40-80); PLATELET COUNT 249 10x3/uL (130-400); RBC 3.95 10x6/uL (4.00-5.40); RDW 24.4 % (11.5-14.5); WBC 11.9 10x3/uL (4.8-10.8)
[2016-09-15 05:01] LABS: CALC OSMOLALITY 279 mosm/kg (275-300); CALCIUM 8.5 mg/dL (8.5-10.1); CARBON DIOXIDE 31.4 mmol/L (21.0-32.0); CHLORIDE - SERUM 103 mmol/L (98-107); CREATININE - SERUM 0.5 mg/dL (0.6-1.3); GLUCOSE 100 mg/dL (74-106); MAGNESIUM - SERUM 2.2 mg/dL (1.8-2.4); POTASSIUM - SERUM 3.2 mmol/L (3.5-5.1); SODIUM 140 mmol/L (136-145); UREA NITROGEN 15 mg/dL (7-18); eGFR NON AFRICAN AMERICAN > 90 mL/min (90-120)
--- NOTE | 2016-09-15 07:15 | NUR ---
PATIENT RECEIVED ALERT IN HIGH ROGERS POSITION. RESPIRATIONS EVEN AND UNLABORED. SIDE RAILS UP X2. BED IN LOW POSITION. CALL LIGHT IN REACH.
[2016-09-15 07:47] VITALS: BP 113/65
--- NOTE | 2016-09-15 08:20 | NUR ---
PATIENT ALERT IN BED WITH AT BEDSIDE. NO SIGNS OF DISTRESS NOTED. SCHEDULED MEDICATION ADMINISTERED. SIDE RAILS UP X2. BED IN LOW POSITION. CALL LIGHT IN REACH.
--- NOTE | 2016-09-15 10:55 | NUR ---
ORDERED LAB DRAWN FROM PICC. FLUSHES EASY WITH BRISK BLOOD RETURN PRESENT.
--- NOTE | 2016-09-15 11:48 | NUR ---
09/15/2016 11:41 CM: Case Management Order rec'd to transfer to [facility] - spoke with patient & spouse. Their first preference would be to transfer to [facility] in [place], where Dr. Richard Ferrell (Rheumatology) is on service. Discussed with [facility] Wilde office - Dr. Wilde is agreeable. If patient is not accepted, will request transfer to [facility]. Spoke with Macy Thibodeaux Nurse, at [facility] - transfer requested - provided her with Dr. Wilde contact information. Waiting determination. CM will follow.
--- NOTE | 2016-09-15 13:00 | NUR ---
ALERT IN BED. FAMILY PRESENT. NO SIGNS OF DISTRESS NOTED. SIDE RAILS UP X2. BED IN LOW POSITION. CALL LIGHT IN REACH.
[2016-09-15 13:32] VITALS: BP 103/70
--- NOTE | 2016-09-15 15:15 | NUR ---
ALERT IN BED. RESPIRATIONS EVEN AND UNLABORED. SCHEDULED MEDICATION ADMINISTERED. SIDE RAILS UP X2. BED IN LOW POSITION. CALL LIGHT IN REACH.
[2016-09-15 16:09] VITALS: BP 131/99
--- NOTE | 2016-09-15 17:45 | NUR ---
PATIENT IN BED WITH FAMILY PRESENT. RESPIRATIONS EVEN AND UNLABORED. SIDE RAILS UP X2. BED IN LOW POSITION. CALL LIGHT IN REACH.
--- NOTE | 2016-09-15 19:35 | NUR ---
RECIEVED SHIFT REPORT. PT IS LYING IN BED. ALERT AND ORIENTED AND ABLE TO VERBALIZE NEEDS. IV IS PATENT AND SALINE LOC AT THIS TIME. PT REQUIRES ASSISTANCE TURNING IN BED FOR COMFORT AND SKIN CARE. REBOLLEDO IS DRAINING URINE BY GRAVITY. FOOT DROP BOOTS NOTED TO BILATERAL FEET. PT STATES PAIN IS 8/10. NO NEEDS ARE VERBALIZED AT THIS TIME. FAMILY AT BEDSIDE. WILL CONTINUE TO MONITOR. SIDE RAILS ARE UP X 2. BED IS IN LOWEST POSITION. CALL LIGHT IS WITHIN REACH.
[2016-09-15 20:00] VITALS: BP 118/61
--- NOTE | 2016-09-15 20:00 | NUR ---
SHIFT ASSESSMENT COMPLETED. NIGHT MEDS TO BE GIVEN BY STUDENT AND INSTRUCTOR. NO NEEDS ARE VOICED AT THIS TIME. WILL MONITOR. SIDE RAILS X 2. BED LOW. CALL LIGHT IN REACH.
[2016-09-16] VITALS: BP 122/62
[2016-09-16 04:00] VITALS: BP 96/71
[2016-09-16 06:35] LABS: BASOPHILS 0.1 % (0.0-2.0); EOSINOPHILS 0.6 % (0-7); HEMATOCRIT 33.8 % (36.0-48.0); HEMOGLOBIN 10.4 g/dL (12-16); IMMATURE GRANULOCYTES 0.5 % (0-5); LYMPHOCYTES 19.5 % (15-50); MCH 26.2 pg (26.0-34.0); MCHC 30.8 g/dL (31.0-37.0); MCV 85.1 fL (80.0-100.0); MEAN PLATELET VOLUME 8.9 fL (7.4-10.4); NEUTROPHILS 70.3 % (40-80); PLATELET COUNT 279 10x3/uL (130-400); RBC 3.97 10x6/uL (4.00-5.40); RDW 25.1 % (11.5-14.5)
[2016-09-16 06:54] LABS: CALC OSMOLALITY 278 mosm/kg (275-300); CALCIUM 8.7 mg/dL (8.5-10.1); CARBON DIOXIDE 28.6 mmol/L (21.0-32.0); CHLORIDE - SERUM 102 mmol/L (98-107); CREATININE - SERUM 0.5 mg/dL (0.6-1.3); GLUCOSE 84 mg/dL (74-106); SODIUM 139 mmol/L (136-145); UREA NITROGEN 18 mg/dL (7-18); eGFR NON AFRICAN AMERICAN > 90 mL/min (90-120)
--- NOTE | 2016-09-16 06:55 | NUR ---
PATIENT RECEIVED ALERT IN MID ROGERS POSITION. RESPIRATIONS EVEN AND UNLABORED. SIDE RAILS UP X2. BED IN LOW POSITION. CALL LIGHT IN REACH.
[2016-09-16 08:12] VITALS: BP 83/65
--- NOTE | 2016-09-16 09:15 | NUR ---
PATIENT ALERT IN BED. REPOSITIONED FOR COMFORT. SCHEDULED MEDICATION ADMINISTERED. SIDE RAILS UP X3. BED IN LOW POSITION. CALL LIGHT IN REACH.
--- NOTE | 2016-09-16 11:06 | NUR ---
09/16/2016 10:57 CM: Case Management [facility] has denied patient per Dr. Wilde. Transfer request initiated with [facility] - spoke with Carlos Eduardo in the Call Center [phone]. Waiting determination. CM will follow.
[2016-09-16 11:50] VITALS: BP 100/61
--- NOTE | 2016-09-16 12:38 | NUR ---
PATIENT ALERT IN BED CRYING. FAMILY AT BEDSIDE. XANAX ADMINISTERED PER PRN ORDER. SIDE RAILS UP X2. BED IN LOW POSITION. CALL LIGHT IN REACH.
--- NOTE | 2016-09-16 13:21 | NUR ---
NUTRITION MONITORING & EVAL CHART REVIEWED. PT SLEEPING, FAMILY AT BEDSIDE REPORTING GOOD PO INTAKE LUNCH. WILL CONTINUE TO PROVIDE DIET, MONITOR PT PROGRESS. RD FOLLOWING
--- NOTE | 2016-09-16 14:38 | EC ---
PATIENT:MARK CASTREJON DATE OF SERVICE: 08/21/16 SEX: F MEDICAL RECORD: [id number] DATE OF : [birth year] LOCATION:D.MS [facility] AGE OF PATIENT: 60 ADMISSION DATE: 08/21/16 REFERRING PHYSICIAN: INTERPRETING PHYSICIAN: CLAIRE FISCHER MD ECHOCARDIOGRAM REPORT ECHO CHARGES 5 ECHO LIMITED CLINICAL DIAGNOSIS: REASSESS EF AND WALL MOTION ECHOCARDIOGRAPHIC MEASUREMENTS (adult normal given) AC root (d.<3.7cm) 3.4 LV Septum d (<1.2 cm> 1.4 Valve Excursion 1.5 LV Septum (systole) 1.6 Left Atria (s.<4.0cm> 3.9 LVPW d(<1.2cm) 1.3 RV (d.<2.3cm) 4.0 LVPW (sytole) 1.7 LV diastole(<5.6CM) 4.7 MV E-F(>70mm/sec) LV systole 3.2 LVOT Diameter 1.4 MV exc.(>10mm) 1.6 Est.ejection fraction (50-75%) Pericardial Effusion N DOPPLER: LVIT A 85.0 E 62.0 LA RVSP 18 LVOT 107 AOP1/2T Asc. Ao 120 RVOT RA PA AV Gradient Peak 5.74 AV Mean 3.0 AV Area 1.2 MV Gradient Peak 3.36 MV Mean 1.70 MV Area COMMENTS: Teacher Learning Disabled: Kavita REZA Marketing Services Vice President:Deny Varela TAPE# PACS DATE OF SERVICE: 09/12/2016 Limited Echocardiogram FINDINGS: Left ventricle chamber size is within normal limits. Left ventricular systolic function is normal. Overall ejection fraction estimated at 55% with good wall motion throughout all segments. TRANSINT:[id number] Voice Confirmation ID: [id number] DOCUMENT ID: [id number] ECHOCARDIOGRAM REPORT [id number] ERNIEDEOINMARK Kofi CLAIRE FISCHER MD at 1438 CC: [id number] DICTATION DATE: 09/15/16 1057 UNITIZER: 09/15/16 1245 [place] [address]
[2016-09-16 15:38] VITALS: BP 99/63
--- NOTE | 2016-09-16 15:42 | NUR ---
PATIENT ALERT IN BED. RATES PAIN 10/10. NORCO PER PRN ORDER. NO FURTHER NEEDS. SIDE RAILS UP X2. BED IN LOW ORGERS POSITION. CALL LIGHT IN REACH.
--- NOTE | 2016-09-16 18:59 | NUR ---
PATIENT IN LOW ROGERS POSITION RESTING WITH EYES CLOSED. RESPIRATIONS EVEN AND UNLABORED. FAMILY AT BEDSIDE. SIDE RAILS UP X2. BED IN LOW POSITION. CALL LIGHT IN REACH.
--- NOTE | 2016-09-16 19:45 | NUR ---
RECIEVED SHIFT REPORT. PT IS LYING IN BED. ALERT AND ORIENTED AND ABLE TO VERBALIZE NEEDS. IV IS PATENT AND SALINE LOC AT THIS TIME. PT REQUIRES ASSISTANCE TURNING IN BED FOR COMFORT AND SKIN CARE. REBOLLEDO IS DRAINING URINE BY GRAVITY. PT STATES PAIN IS 8/10. NO NEEDS ARE VERBALIZED AT THIS TIME. WILL CONTINUE TO MONITOR. SIDE RAILS ARE UP X 2. BED IS IN LOWEST POSITION. CALL LIGHT IS WITHIN REACH.
[2016-09-16 20:00] VITALS: BP 95/64
--- NOTE | 2016-09-16 21:49 | NUR ---
SHIFT ASSESSMENT COMPLETED. NIGHT MEDS GIVEN WITH NO PROBLEMS. SCHEDULED APRESOLINE AND LISINOPRIL HELD DUE TO B/P=/. NO NEEDS ARE VOICED. WILL MONITOR. SIDE RAILS X 2. BED LOW. CALL LIGHT IN REACH.
[2016-09-17] VITALS: BP 112/83
[2016-09-17 04:00] VITALS: BP 107/71
[2016-09-17 06:11] LABS: CALC OSMOLALITY 277 mosm/kg (275-300); CALCIUM 8.8 mg/dL (8.5-10.1); CARBON DIOXIDE 27.5 mmol/L (21.0-32.0); CHLORIDE - SERUM 102 mmol/L (98-107); CREATININE - SERUM 0.5 mg/dL (0.6-1.3); GLUCOSE 79 mg/dL (74-106); MAGNESIUM - SERUM 1.9 mg/dL (1.8-2.4); SODIUM 139 mmol/L (136-145); UREA NITROGEN 15 mg/dL (7-18); eGFR NON AFRICAN AMERICAN > 90 mL/min (90-120)
[2016-09-17 06:12] LABS: POTASSIUM - SERUM 3.3 mmol/L (3.5-5.1)
[2016-09-17 06:46] LABS: BASOPHILS 0.1 % (0.0-2.0); EOSINOPHILS 0.7 % (0-7); HEMATOCRIT 32.6 % (36.0-48.0); HEMOGLOBIN 10.1 g/dL (12-16); IMMATURE GRANULOCYTES 0.4 % (0-5); LYMPHOCYTES 18.5 % (15-50); MCH 26.4 pg (26.0-34.0); MCV 85.1 fL (80.0-100.0); MEAN PLATELET VOLUME 9.2 fL (7.4-10.4); MONOCYTES 8.4 % (2-11); NEUTROPHILS 71.9 % (40-80); PLATELET COUNT 261 10x3/uL (130-400); RBC 3.83 10x6/uL (4.00-5.40); RDW 25.3 % (11.5-14.5); WBC 14.7 10x3/uL (4.8-10.8)
--- NOTE | 2016-09-17 07:30 | NUR ---
REPORT RECEIVED FROM HUMAN RESOURCES PROJECT COORDINATOR NURSE. CALL LIGHT IN REACH.
--- NOTE | 2016-09-17 07:40 | NUR ---
PATIENT IN MID ROGERS POSITION. RESPIRATIONS EVEN AND UNLABORED. SIDE RAILS UP X3. BED IN LOW POSITION. CALL LIGHT IN REACH. FAMILY AT BEDSIDE.
[2016-09-17 08:05] VITALS: BP 92/66
[2016-09-17 08:05] LABS: APTT 26.4 SECONDS (22.8-39.4); INR 1.26 (0.85-1.17); PROTIME 15.7 SECONDS (11.6-15.0)
--- NOTE | 2016-09-17 08:22 | NUR ---
ASSESSMENT COMPLETED. AT BEDSIDE. PROCEDURE RESCHEDULED FOR TOMORROW. JOSHUA JEAN-BAPTISTE, IN ROOM TO SPEAK WITH PATIENT AND . CALL LIGHT IN REACH. WILL CONTINUE WITH PLAN OF CARE.
--- NOTE | 2016-09-17 08:42 | CN ---
PATIENT NAME:MARK CASTREJON MEDICAL RECORD: [id number] : 57 LOCATION:D[facility] ADMIT DATE: 08/21/16 ACCOUNT: [id number] CONSULTING PHYSICIAN: ALEXANDER DEE MD REFERRING PHYSICIAN: ANN LAUREANO MD DATE OF CONSULTATION: 09/12/2016 HISTORY OF PRESENT ILLNESS: A 60-year-old female, somewhat with complicated medical history, initially admitted with mental status changes, generalized tonic clonic seizures, during evaluation was found to have PRES on MRI and subsequently was found to respond nicely ____ standpoint to high dose steroids for ____. She also had infection with probable pneumonitis treated appropriately. Over the course of the day, she had chest pain, typical and atypical features, does have markedly abnormal CT of the chest, on Eliquis for DVT. ECG without acute changes. Currently, the cardiac enzymes are negative. We are asked to see her concerning her cardiovascular status. PAST MEDICAL HISTORY: 1. 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 2. Hypertension. ALLERGIES: PENICILLIN. MEDICATIONS: Reviewed. PHYSICAL EXAMINATION: GENERAL: Pleasant female in no acute distress. VITAL SIGNS: Blood pressure 117/81, pulse 73 regular. HEENT: Normocephalic and atraumatic. NECK: No bruits are noted. HEART: Regular. LUNGS: [place] are clear. ABDOMEN: Soft, nontender. EXTREMITIES: Pulses are well preserved, 2+. There is no edema. DIAGNOSTIC DATA: ECG without acute change. IMPRESSION: Chest pain. Current ECG negative. Cardiac enzymes, initial set negative, we will draw serial enzymes, check echocardiographic study for any focal wall motion abnormality. I have reviewed this compared to previous study on admission. Further recommendations based on the above. Clinical suspicion for acute coronary event is low at this point. TRANSINT:[id number] Voice Confirmation ID: [id number] DOCUMENT ID: [id number] ALEXANDER DEE MD at 0842 CC: [id number] DICTATION DATE: 09/12/16 1301 BOOM CONVEYOR OPERATOR: 09/12/16 1529 [place] [address]
--- NOTE | 2016-09-17 09:16 | NUR ---
ELIZABETH AND ANA PO WITH AM MEDS. HELD BP MEDS D/T BP OF 92/66. STATES HE WAS OUT OF THE ROOM WHEN JERILYN CAME SO I WILL CALL HER AND SEE IF SHE CAN COME BACK AND TALK TO HIM. CALL LIGHT IN REACH. IN ROOM FEEDING PATIENT.
--- NOTE | 2016-09-17 11:45 | NUR ---
QUINTINRN, FROM RADIOLOGY IS IN ROOM TO DISCUSS PROCEDURE WITH PATIENT'S AT THIS TIME.
--- NOTE | 2016-09-17 12:27 | NUR ---
BP 75/51. PAGED DR. LAUREANO TO INFORM HIM.
[2016-09-17 12:28] VITALS: BP 75/57
--- NOTE | 2016-09-17 13:17 | NUR ---
IV BOLUS OF [address] LAUREANO'S ORDER. ALSO ORDER TO HOLD BP MEDS THIS AFTERNOON. BLOOD DRAWN FROM RIGHT PICC LINE FOR K+ LEVEL AND TAKEN TO LAB.
--- NOTE | 2016-09-17 13:43 | NUR ---
NS BOLUS COMPLETED.
--- NOTE | 2016-09-17 13:43 | NUR ---
IV BOLUS COMPLETED.
--- NOTE | 2016-09-17 15:08 | NUR ---
ANA KINGSLEY, AND ELIZABETH PO. CALL LIGHT IN REACH.
[2016-09-17 15:46] VITALS: BP 132/78
--- NOTE | 2016-09-17 16:21 | NUR ---
RESTING WITH EYES CLOSED. RESP EVEN AND UNLABORED. CALL LIGHT IN REACH.
--- NOTE | 2016-09-17 18:05 | NUR ---
NO CHANGES IN INITIAL ASSESSMENT. CALL LIGHT IN REACH. WILL CONTINUE WITH PLAN OF CARE. FAMILY IN ROOM.
--- NOTE | 2016-09-17 19:30 | NUR ---
DRSG TO RIGHT UPPERARM PICC LINE CHANGED USING STERILE TECHNIQUE PER HOSPITAL POLICY.
--- NOTE | 2016-09-17 19:30 | NUR ---
C/O PAIN ALL OVER. NORCO 5 TAB ONE PO GIVEN FOR PAIN CONTROL.ASSESSMENT PER FLOWSHEET. RT ARM PICC LINE IN PLACE SALINE LOCKED X2 PORTS.
[2016-09-17 20:00] VITALS: BP 141/87
--- NOTE | 2016-09-17 21:00 | NUR ---
MEDS GIVEN PER MAR. XANAX GIVEN FOR RESTLESSNESS/ANXIETY.
[2016-09-18] VITALS (9 sets, daily range): BP systolic 95–153; BP diastolic 53–72
--- NOTE | 2016-09-18 | NUR ---
NPO FOR ARTERIOGRAM IN AM. EYES CLOSED RESPIRATIONS WITH EASE AND UNLABORED.
--- NOTE | 2016-09-18 00:20 | NUR ---
PERMIT SIGNED BY SPOUSE. PLACED ON CHART.
--- NOTE | 2016-09-18 03:00 | NUR ---
REPOSITIONED IN BED REMAINS NPO FOR AM ARTERIOGRAM.
--- NOTE | 2016-09-18 05:30 | NUR ---
RESTING QUIETLY RESPIRATIONS WITH EASE AND UNLABORED.
--- NOTE | 2016-09-18 06:09 | NUR ---
NO CHANGES IN ASSESSMENT.
[2016-09-18 06:15] LABS: BASOPHILS 0.1 % (0.0-2.0); EOSINOPHILS 0.9 % (0-7); HEMATOCRIT 32.5 % (36.0-48.0); IMMATURE GRANULOCYTES 0.7 % (0-5); LYMPHOCYTES 19.2 % (15-50); MCH 26.3 pg (26.0-34.0); MCHC 30.8 g/dL (31.0-37.0); MCV 85.5 fL (80.0-100.0); MEAN PLATELET VOLUME 9.1 fL (7.4-10.4); MONOCYTES 7.7 % (2-11); NEUTROPHILS 71.4 % (40-80); PLATELET COUNT 272 10x3/uL (130-400); RDW 25.6 % (11.5-14.5); WBC 17.5 10x3/uL (4.8-10.8)
[2016-09-18 06:42] LABS: CALC OSMOLALITY 279 mosm/kg (275-300); CALCIUM 8.6 mg/dL (8.5-10.1); CARBON DIOXIDE 25.6 mmol/L (21.0-32.0); CHLORIDE - SERUM 104 mmol/L (98-107); CREATININE - SERUM 0.5 mg/dL (0.6-1.3); GLUCOSE 63 mg/dL (74-106); POTASSIUM - SERUM 3.2 mmol/L (3.5-5.1); SODIUM 141 mmol/L (136-145); UREA NITROGEN 16 mg/dL (7-18); eGFR NON AFRICAN AMERICAN > 90 mL/min (90-120)
--- NOTE | 2016-09-18 07:50 | NUR ---
WALKING ROUNDS MADE. PT IS ALERT, BUT DISORIENTED. APPEARS TEARFUL AND ANXIOUS. ASKED PT IF SHE WAS COULD AND SHE SHOOK HER HEAD NO. REMAINS NPO FOR PROCEDURE TODAY. POSITIONED ON BACK AT THIS TIME. REBOLLEDO CATHETER PATENT AND DRAINING TO GRAVITY. SRX2 WITH BED IN LOWEST POSITION AND WHEELS LOCKED. DOOR REMAINS OPEN FOR SAFETY. UNABLE TO VOICE NEEDS AT THIS TIME. WILL CONTINUE WITH PLAN OF CARE.
--- NOTE | 2016-09-18 10:35 | NUR ---
TAKEN TO CT SCAN AT THIS TIME. MY GO STRAIGHT TO PROCEDURE FROM SCAN PER PAULINO IN IR. WILL MONITOR PT WHEN SHE RETURNS TO ROOM.
--- NOTE | 2016-09-18 19:30 | NUR ---
PT RECEIVED RESTING IN BED WITH EYES CLOSED. PT SPOUSE AT BEDSIDE. PT AROUSES TO VERBAL STIMULI. PT ALERT AND ORIENTED TO PERSON ONLY AT THIS TIME. PT SLOW TO RESPOND TO QUESTIONS. PICC IN RIGHT ARM NOTED, SALINE LOCKED. DENIES PAIN AT THIS TIME. CALL LIGHT AND H2O IN PT REACH.
[2016-09-19 01:00] VITALS: BP 127/71
[2016-09-19 03:41] LABS: BASOPHILS 0.1 % (0.0-2.0); EOSINOPHILS 0.8 % (0-7); HEMATOCRIT 30.5 % (36.0-48.0); HEMOGLOBIN 9.3 g/dL (12-16); IMMATURE GRANULOCYTES 0.5 % (0-5); LYMPHOCYTES 15.3 % (15-50); MCH 26.4 pg (26.0-34.0); MCHC 30.5 g/dL (31.0-37.0); MCV 86.6 fL (80.0-100.0); MEAN PLATELET VOLUME 8.5 fL (7.4-10.4); MONOCYTES 7.3 % (2-11); PLATELET COUNT 200 10x3/uL (130-400); RBC 3.52 10x6/uL (4.00-5.40); RDW 25.5 % (11.5-14.5); WBC 14.7 10x3/uL (4.8-10.8)
[2016-09-19 03:50] LABS: CALC OSMOLALITY 277 mosm/kg (275-300); CALCIUM 8.4 mg/dL (8.5-10.1); CARBON DIOXIDE 29.6 mmol/L (21.0-32.0); CHLORIDE - SERUM 104 mmol/L (98-107); CREATININE - SERUM 0.5 mg/dL (0.6-1.3); GLUCOSE 88 mg/dL (74-106); MAGNESIUM - SERUM 1.7 mg/dL (1.8-2.4); PHOSPHOROUS 3.6 mg/dL (2.5-4.9); POTASSIUM - SERUM 3.4 mmol/L (3.5-5.1); SODIUM 139 mmol/L (136-145); UREA NITROGEN 14 mg/dL (7-18); eGFR NON AFRICAN AMERICAN > 90 mL/min (90-120)
--- NOTE | 2016-09-19 04:09 | NUR ---
ARTILLERY SPECIALIST JUST FINISHED GIVING PATIENT BATH. PATIENT NOW SLEEPING ON RIGHT SIDE WITH NO DISTRESS NOTED. O2 @ 3L VIA NC. SRX2. CALL LIGHT WITHIN REACH.
[2016-09-19 06:48] VITALS: BP 183/80
--- NOTE | 2016-09-19 07:15 | NUR ---
REPORT RECEIVED FROM RETURNING OFFICER NURSE. CALL LIGHT IN REACH.
[2016-09-19 07:42] LABS: T4 THYROXINE 3.7 ug/dL (4.7-13.3); THYROID STIMULATING HORMONE 1.33 uIU/mL (0.36-3.74)
[2016-09-19 07:54] VITALS: BP 105/68
--- NOTE | 2016-09-19 08:00 | NUR ---
ASSESSMENT COMPLETED. IN ROOM. CALL LIGHT IN REACH. WILL CONTINUE WITH PLAN OF CARE.
--- NOTE | 2016-09-19 09:15 | NUR ---
PATIENT IN BED EYES CLOSED RESTING QUIETLY. NO COMPLAINTS OR SIGNS OF DISTRESS. FAMILY AT BEDSIDE. CALL LIGHT WITHIN REACH.
--- NOTE | 2016-09-19 10:40 | NUR ---
AM MEDS ADMINISTERED WITH XANAX AND NORCO PO. LARGE BM NOTED.
[2016-09-19 11:33] VITALS: BP 101/65
--- NOTE | 2016-09-19 12:00 | NUR ---
RESTING WITH EYES CLOSED. RESP EVEN AND UNLABORED. CALL LIGHT IN REACH.
--- NOTE | 2016-09-19 13:25 | NUR ---
MARLENE MCNEAL PER JOVAN FIGUEROA.
--- NOTE | 2016-09-19 14:56 | NUR ---
TO SPECIALS VIA BED.
--- NOTE | 2016-09-19 16:15 | NUR ---
URINE EMPTIED FROM CATHETIER. 24 HOUR URINE INITIATED.
[2016-09-19 16:42] LABS: GLUCOSE - CSF 97 MG/DL (40-75); PROTEIN - CSF 36 MG/DL (12-60)
[2016-09-19 16:43] LABS: APPEARANCE - CSF CLEAR
[2016-09-19 16:44] LABS: RBC - CSF 100 cmm (0-0)
--- NOTE | 2016-09-19 17:45 | NUR ---
ELIZABETH AND ANA PER REQUEST. CALL LIGHT IN REACH.
--- NOTE | 2016-09-19 18:34 | NUR ---
NO CHANGES IN INITIAL ASSESSMENT. FAMILY IN ROOM. CALL LIGHT IN REACH. WILL CONTINUE WITH PLAN OF CARE.
[2016-09-19 19:00] VITALS: BP 90/56
--- NOTE | 2016-09-19 20:00 | NUR ---
PT RECEIVED RESTING IN BED WITH EYES CLOSED. PT SPOUSE AT BEDSIDE. NO S/S OF DISTRESS NOTED AT THIS TIME. PT ALERT TO PERSON ONLY, DOES NOT RESPOND TO QUESTIONS APPROPRIATELY. PICC TO RIGHT ARM NOTED, SALINE LOCKED AT THIS TIME. REBOLLEDO CATHETER IN PLACE, CLEAR YELLOW RETURN NOTED. CURRENTY OBTAINING 24 HOUR URINE, PREVIOUS URINE NOTED TO BE ON ICE IN BATHROOM. CALL LIGHT AND H2O IN PT REACH. BED IN LOW POSITION. SIDE RAILS UP X2.
--- NOTE | 2016-09-20 02:16 | NUR ---
PT IN BED WITH NO DISTRESS. RESPIRATIONS ARE EVEN AND UNLABORED. SIDE RAILS X 2. BED LOW. CALL LIGHT IN REACH.
[2016-09-20 04:37] LABS: BASOPHILS 0.1 % (0.0-2.0); EOSINOPHILS 1.4 % (0-7); HEMATOCRIT 31.3 % (36.0-48.0); HEMOGLOBIN 9.6 g/dL (12-16); IMMATURE GRANULOCYTES 0.4 % (0-5); LYMPHOCYTES 19.5 % (15-50); MCH 26.8 pg (26.0-34.0); MCHC 30.7 g/dL (31.0-37.0); MCV 87.4 fL (80.0-100.0); MEAN PLATELET VOLUME 8.5 fL (7.4-10.4); MONOCYTES 7.8 % (2-11); NEUTROPHILS 70.8 % (40-80); PLATELET COUNT 208 10x3/uL (130-400); RBC 3.58 10x6/uL (4.00-5.40); RDW 25.1 % (11.5-14.5); WBC 13.6 10x3/uL (4.8-10.8)
[2016-09-20 04:54] LABS: ALBUMIN 2.1 g/dL (3.4-5.0); ALKALINE PHOSPHATASE 52 U/L (46-116); ALT (SGPT) 35 U/L (10-68); BILIRUBIN - TOTAL 0.25 mg/dL (0.2-1.3); C-REACTIVE PROTEIN 14.8 mg/dL (0.0-0.9); CALC OSMOLALITY 276 mosm/kg (275-300); CALCIUM 8.5 mg/dL (8.5-10.1); CARBON DIOXIDE 29.4 mmol/L (21.0-32.0); CHLORIDE - SERUM 104 mmol/L (98-107); CREATININE - SERUM 0.4 mg/dL (0.6-1.3); GLUCOSE 73 mg/dL (74-106); POTASSIUM - SERUM 3.5 mmol/L (3.5-5.1); PROTEIN - SERUM 6.2 g/dL (6.4-8.2); SODIUM 139 mmol/L (136-145); UREA NITROGEN 12 mg/dL (7-18); eGFR NON AFRICAN AMERICAN > 90 mL/min (90-120)
--- NOTE | 2016-09-20 07:10 | NUR ---
PATIENT RECEIVED IN MID ROGERS POSITION RESTING WITH EYES CLOSED. RESPIRATIONS EVEN AND UNLABORED. FAMILY AT BEDSIDE. SIDE RAILS UP X3. BED IN LOW POSITION. CALL LIGHT IN REACH.
[2016-09-20 08:40] VITALS: BP 112/65
--- NOTE | 2016-09-20 08:45 | NUR ---
PATIENT ALERT IN BED EATING BREAKFAST WITH ASSIST FROM FAMILY AND HOLDING CONVERSATION. SCHEDULED MEDICATION ADMINISTERED. WELL TOLERATED. DENIES NEEDS. SIDE RAILS UP X3. BED IN LOW POSITION. CALL LIGHT IN REACH.
--- NOTE | 2016-09-20 11:40 | NUR ---
PATIENT REPOSITIONED IN BED. WELL TOLERATED. DENIES PAIN. SIDE RAILS UP X2. BED IN LOW PSOITIION. CALL LIGHT IN REACH.
[2016-09-20 12:34] VITALS: BP 100/69
--- NOTE | 2016-09-20 14:45 | NUR ---
PATIENT IN MID ROGERS POSITION RESTING QUIETLY. RESPIRATIONS EVEN AND UNLABORED. SCHEDULED MEDICATION ADMINISTERED. PRESENT. SIDE RAILS UP X2. BED IN LOW POSITION. CALL LIGHT IN REACH.
--- NOTE | 2016-09-20 16:05 | NUR ---
PATIENT IN BED MOANING. RATES PAIN 10/10. 2MG DILAUDID ADMINISTERED SLOW IVP. WELL TOLERATED. SIDE RAILS UP X2. BED IN LOW POSITION. CALL LIGHT IN REACH.
[2016-09-20 16:34] VITALS: BP 116/77
--- NOTE | 2016-09-20 18:00 | NUR ---
PATIENT MOANING AND CRYING. C/O PAIN 03/31. MEDICATION ADMINISTERED PER PRN ORDER. AT BEDSIDE. SIDE RAILS UP X3. BED IN LOW POSITION. CALL LIGHT IN REACH.
--- NOTE | 2016-09-20 19:53 | NUR ---
PATIENT RESTING IN BED WITH AT BEDSIDE. PATIENT AND DENY NEEDS AT THIS TIME. BED IN LOWEST POSITION AND CALL LIGHT WITHIN REACH. ENCOURAGED PATIENT AND TO CALL IF THEY HAVE FURTHER NEEDS.
[2016-09-20 21:36] VITALS: BP 194/68
[2016-09-21 04:47] LABS: BASOPHILS 0.1 % (0.0-2.0); EOSINOPHILS 1.6 % (0-7); HEMATOCRIT 31.4 % (36.0-48.0); HEMOGLOBIN 9.4 g/dL (12-16); IMMATURE GRANULOCYTES 0.4 % (0-5); LYMPHOCYTES 21.5 % (15-50); MCH 26.4 pg (26.0-34.0); MCHC 29.9 g/dL (31.0-37.0); MCV 88.2 fL (80.0-100.0); MEAN PLATELET VOLUME 8.6 fL (7.4-10.4); NEUTROPHILS 69.4 % (40-80); PLATELET COUNT 211 10x3/uL (130-400); RBC 3.56 10x6/uL (4.00-5.40); RDW 24.8 % (11.5-14.5); WBC 14.9 10x3/uL (4.8-10.8)
[2016-09-21 05:00] LABS: INR 1.14 (0.85-1.17); PROTIME 14.5 SECONDS (11.6-15.0)
[2016-09-21 05:02] LABS: ALBUMIN 2.2 g/dL (3.4-5.0); ALKALINE PHOSPHATASE 53 U/L (46-116); ALT (SGPT) 33 U/L (10-68); BILIRUBIN - TOTAL 0.19 mg/dL (0.2-1.3); CALC OSMOLALITY 273 mosm/kg (275-300); CALCIUM 8.4 mg/dL (8.5-10.1); CARBON DIOXIDE 29.7 mmol/L (21.0-32.0); CHLORIDE - SERUM 102 mmol/L (98-107); CREATININE - SERUM 0.5 mg/dL (0.6-1.3); GLUCOSE 83 mg/dL (74-106); MAGNESIUM - SERUM 1.6 mg/dL (1.8-2.4); PHOSPHOROUS 3.7 mg/dL (2.5-4.9); PROTEIN - SERUM 5.7 g/dL (6.4-8.2); SODIUM 137 mmol/L (136-145); UREA NITROGEN 15 mg/dL (7-18); eGFR NON AFRICAN AMERICAN > 90 mL/min (90-120)
[2016-09-21 05:11] LABS: POTASSIUM - SERUM 3.5 mmol/L (3.5-5.1)
--- NOTE | 2016-09-21 07:20 | NUR ---
PATIENT RECEIVED IN LOW ROGERS POSITION. RESPIRATIONS EVEN AND UNLABORED. SIDE RAILS UP X2. BED IN LOW POSITION. CALL LIGHT IN REACH. AT BEDSIDE.
--- NOTE | 2016-09-21 07:36 | EEG ---
PATIENT:MARK CASTREJON DATE OF SERVICE: 08/21/16 MEDICAL RECORD: [id number] DATE OF : 57 LOCATION:D.221 D.MS ADMISSION DATE: 08/21/16 REFERRING PHYSICIAN: INTERPRETING PHYSICIAN: CARLOS KLINE MD DATE OF SERVICE: 09/19/2016 Referred as an inpatient by myself, currently in room 2214. ELECTROENCEPHALOGRAM NUMBER: [id number]. DATE OF EXAMINATION: 09/19/2016 at 2:10 p.m. TECHNICAL DATA: This electroencephalographic recording consists of approximately 20 minutes of data collection utilizing the international 10/20 system of electrode placement and both referential and non-referential montages. Sixteen channels of electrocerebral recording are accompanied by a 17th channel dedicated to the electrocardiographic rhythm and 2 channels of electromyographic recording. Recording is performed in the awake and drowsy states utilizing activation by photic stimulation. ELECTROENCEPHALOGRAPHIC DATA: The awake state comprises only approximately 20% of the recorded electrocerebral activity. Electromyographic artifact is prominent and rapid eye movements are occasionally seen. The posterior dominant background consists of a symmetric, semi-rhythmic, waxing and waning 6-7 Hz theta activity, which is suppressed by eye opening. Also observed is a nearly continuous irregular and generalized and symmetric 2-3 Hz delta slowing. The drowsy state comprises the remaining portion of the recorded electrocerebral activity. Electromyographic artifact is diminished and rapid eye movements are not seen. The posterior dominant background is relatively suppressed. Delta slowing is more prominent in stage I sleep. No focal slowing is identified. No epileptiform discharges are seen. Photic stimulation induces no change in the recorded electrocerebral activity. INTERPRETATION: 1. Continuous slow, generalized (awake and drowsy). 2. Background slow. This electroencephalographic recording is indicative of a moderate diffuse encephalopathy. TRANSINT:[id number] Voice Confirmation ID: [id number] DOCUMENT ID: [id number] ELECTROENCEPHALOGRAM REPORT [id number] MARK CASTREJON CARLOS KLINE MD at 0736 CC: [id number] DICTATION DATE: 09/20/16 0602 SUPPLY CHAIN DESIGN MANAGER: 09/20/16 0836 ADM IN [place] [id number] [place] [id number]
[2016-09-21 07:53] VITALS: BP 124/63
--- NOTE | 2016-09-21 08:50 | NUR ---
PATIENT IN HIGH ROGERS POSITION RESTING QUIETLY. RESPIRATIONS EVEN AND UNLABORED. SCHEDULED MEDICATION CRUSHED AND ADMINISTERED WITH APPLESAUCE. DILANTIN GIVEN WHOLE WITH APPLESAUCE. PATIENT ONLY ABLE TO TAKE 2 CAPSULES OF ORDERD 3 DUE TO ROLLING PILL AROUND IN MOUTH AND POCKETING IT. PATIENT ALSO KEPT FALLING ASLEEP. WILL NOTIFY PHYSICIAN ON ROUNDS. FAMILY AT BEDSIDE. SIDE RAILS UP X2. BED IN LOW POSITION. CALL LIGHT IN REACH.
--- NOTE | 2016-09-21 09:35 | NUR ---
REPOSITIONED IN BED BY NURSE AID, YARELIS. STATES PATIENT WAS SLEEPING AND SISTER WAS ASKING WHEN SHE HAD HER DILAUDID LAST.
--- NOTE | 2016-09-21 09:40 | NUR ---
SISTER AT DESK REQUESTING DILAUDID FOR PATIENT. ASSESS PATIENT AND ADMINISTER PER ORDERS
--- NOTE | 2016-09-21 09:59 | NUR ---
ENTERED ROOM TO FIND PATIENT REQUESTING QUIETLY WITH EYES CLOSED. RESPIRATIONS EVEN AND UNLABORED. NO GRIMACING, WRITHING, CRYING OR MOANING NOTED. FAMILY AT BEDSIDE. EXPLAINED TO FAMILY THAT PATIENT APPEARED COMFORTABLE AT THE MOMENT AND THAT THE PAIN MEDICATION COULD CAUSE FURTHER DROWSINESS. PATIENT STATES "THEY WILL WAIT UNTIL SHE STARTS MOANING AGAIN TO ASK FOR PAIN MEDICATION." DENIES FURTHER NEEDS. SIDE RAILS UP X3. BED IN LOW POSITION. CALL LIGHT IN REACH.
--- NOTE | 2016-09-21 11:18 | NUR ---
PATIENT IN BED MOANING. SISTER AT BEDSIDE REQUESTING DILAUDID BE GIVEN. DILAUDID ADMINISTERED PER PRN ORDER. SIDE RAILS UP X3. BED IN LOW POSITION. CALL LIGHT IN REACH.
[2016-09-21 12:08] LABS: ACID FAST SMEAR Negative (()); AFB SPECIMEN PROCESSING Not Indicated (())
--- NOTE | 2016-09-21 12:26 | NUR ---
PATIENT IN MID ROGERS POSITION RESTING WITH EYES CLOSED. RESPIRATIONS EVEN AND UNLABORED. SIDE RAILS UP X2. BED IN LOW POSITION. CALL LIGHT IN REACH.
[2016-09-21 12:41] VITALS: BP 113/67
--- NOTE | 2016-09-21 15:07 | NUR ---
PATIENT IN MID ROGERS POSITION RESTING WITH EYES CLOSED. RESPIRATIONS EVEN AND UNLABORED. SIDE RAILS UP X2. BED IN LOW POSITION. CALL LIGHT IN REACH. PRESENT. SCHEDULED IV MEDICATION ADMINISTERED.
[2016-09-21 15:34] VITALS: BP 144/78
--- NOTE | 2016-09-21 17:34 | NUR ---
PATIENT IN BED MOANING. AT BEDSIDE. XANAX ADMINISTERED PER PRN ORDER CRUSHED WITH APPLESAUCE. WELL TOLERATED.
--- NOTE | 2016-09-21 19:33 | NUR ---
PATIENT IS MOANING AND CRYING WITH AT BEDSIDE. PATIENT'S IS UPSET THAT THERE ARE NO PAIN MEDS ORDERED FOR THE PATIENT. I EXPLAINED TO THE PATIENT THAT THE DOCTOR WOULD BE IN ON THURSDAY TO DISCUSS. BED IS IN LOWEST POSITION AND CALL LIGHT WITHIN REACH. ENCOURAGED THE PATIENT AND HER TO CALL IF THEY HAVE NEEDS.
[2016-09-21 22:19] VITALS: BP 163/80
[2016-09-22 03:29] VITALS: BP 166/88
[2016-09-22 06:01] LABS: BASOPHILS 0.1 % (0.0-2.0); EOSINOPHILS 1.1 % (0-7); HEMATOCRIT 30.3 % (36.0-48.0); HEMOGLOBIN 9.5 g/dL (12-16); IMMATURE GRANULOCYTES 0.3 % (0-5); LYMPHOCYTES 11.8 % (15-50); MCH 27.2 pg (26.0-34.0); MCHC 31.4 g/dL (31.0-37.0); MCV 86.8 fL (80.0-100.0); MEAN PLATELET VOLUME 8.3 fL (7.4-10.4); MONOCYTES 7.1 % (2-11); NEUTROPHILS 79.6 % (40-80); PLATELET COUNT 175 10x3/uL (130-400); RBC 3.49 10x6/uL (4.00-5.40); RDW 24.8 % (11.5-14.5)
[2016-09-22 06:24] LABS: ALBUMIN 2.2 g/dL (3.4-5.0); ANION GAP 12.4 mmol/L (8-16); BILIRUBIN - TOTAL 0.23 mg/dL (0.2-1.3); CALCIUM 8.8 mg/dL (8.5-10.1); CARBON DIOXIDE 27.1 mmol/L (21.0-32.0); MAGNESIUM - SERUM 1.6 mg/dL (1.8-2.4); PHOSPHOROUS 4.4 mg/dL (2.5-4.9); POTASSIUM - SERUM 3.5 mmol/L (3.5-5.1); PROTEIN - SERUM 6.4 g/dL (6.4-8.2)
--- NOTE | 2016-09-22 07:00 | NUR ---
REPORT RECEIVED FROM GRAIN MERCHANDISING MANAGER NURSE. CALL LIGHT IN REACH.
[2016-09-22 07:05] LABS: CREATININE - SERUM 1.5 mg/dL (0.6-1.3)
[2016-09-22 07:06] LABS: PHENYTOIN (DILANTIN) 41.2 ug/mL (10.0-20.0)
[2016-09-22 07:09] LABS: FUNGUS MYCOLOGY CULTURE Final report (())
[2016-09-22 07:52] VITALS: BP 118/82
--- NOTE | 2016-09-22 09:30 | NUR ---
ASSESSMENT COMPLETED. CALL LIGHT IN REACH. IN ROOM. WILL CONTINUE WITH PLAN OF CARE.
[2016-09-22 11:23] VITALS: BP 120/80
--- NOTE | 2016-09-22 11:45 | NUR ---
AM MEDS ADMINISTERED WITH XANAX. ALL OF THEM CRUSHED AND ADMINISTERED WITH APPLESAUCE.
--- NOTE | 2016-09-22 12:26 | NUR ---
DILAUDID 2 MG SIVP PER JOSHUA BARRERA.
--- NOTE | 2016-09-22 12:58 | NUR ---
NUTRITION MONITORING & EVAL CHART REVIEWED, PT VISIT X 2. FAMILY REPORTS PT WITH NO PO INTAKE BREAKFAST OR LUNCH TODAY. PRIOR TO TODAY PO INTAKE HAS BEEN SPORADIC. DOES REQUIRE ASSIST. PT MAY BENEFIT FROM PEG TUBE PLACEMENT FOR IMPROVED NUTRITION DURING PERIODS OF INADEQUATE INTAKE. RD FOLLOWING
--- NOTE | 2016-09-22 14:20 | NUR ---
RESTING WITH EYES CLOSED. RESP EVEN AND UNLABORED. CALL LIGHT IN REACH.
--- NOTE | 2016-09-22 16:08 | NUR ---
PATIENT IN BED WITH IV INTACT. EYES CLOSED RESTING QUIETLY AT THIS TIME. LAYING ON SIDE WITH CALL LIGHT WITHIN REACH.
--- NOTE | 2016-09-22 16:13 | NUR ---
MOANING IN PAIN. DILAUDID IVP AND ZOVIRAX IVPB. CALL LIGHT IN REACH.
[2016-09-22 16:17] VITALS: BP 135/71
--- NOTE | 2016-09-22 18:09 | NUR ---
NO CHANGES IN INITIAL ASSESSMENT. FAMILY IN ROOM. CALL LIGHT IN REACH. WILL CONTINUE WITH PLAN OF CARE.
[2016-09-22 19:00] VITALS: BP 207/107
--- NOTE | 2016-09-22 20:00 | NUR ---
ASSESSMENT PER FLOW SHEET. IV PATENT RT UPPER ARM PICC LINE WITH NS AT 10CC'S/HR. SITE CLEAR. REBOLLEDO TO BS DRAINAGE WITH YELLOW URINE. O2 ON 2L/M PER NC. RT ARM FLACCID FROM OLD CVA LEGS AND LEFT ARM WEAK. PT ON FIRST STEP AIR MATTRESS SPOUSE AT BEDSIDE. BEDSIDE UP DRAFT TX GIVEN PER RT TECH.
--- NOTE | 2016-09-22 21:01 | NUR ---
PATIENT MOANING LOUDLY AT IF IN PAIN. DILAUDID 2 MG IVP GIVEN FOR PAIN RELIEF.
--- NOTE | 2016-09-22 21:58 | NUR ---
MEDS GIVEN CRUSHED IN APPLSAUCE. HOB UP 65 DEGREES. HAD PT TO TILT HEAD FORWARD AND ENCOURAGED TO SWALLOW. TOLERATED WELL. CLEANED MOUTH OUT WITH ORAL SWABS AFTER MEDS PASSED.
[2016-09-23] VITALS: BP 176/101
[2016-09-23 04:00] VITALS: BP 202/92
--- NOTE | 2016-09-23 06:50 | NUR ---
REPORT RECEIVED FROM TEST DESK TROUBLE LOCATOR NURSE. CALL LIGHT IN REACH.
--- NOTE | 2016-09-23 07:02 | NUR ---
ASSESSMENT COMPLETED. DILAUDID IVP PER C/O PAIN OF 10. AT BEDSIDE. CALL LIGHT IN REACH. WILL CONTINUE WITH PLAN OF CARE.
[2016-09-23 07:17] LABS: BASOPHILS 0.2 % (0.0-2.0); EOSINOPHILS 1.3 % (0-7); HEMATOCRIT 32.1 % (36.0-48.0); HEMOGLOBIN 9.6 g/dL (12-16); IMMATURE GRANULOCYTES 0.3 % (0-5); LYMPHOCYTES 12.7 % (15-50); MCH 26.4 pg (26.0-34.0); MCHC 29.9 g/dL (31.0-37.0); MCV 88.2 fL (80.0-100.0); MEAN PLATELET VOLUME 8.8 fL (7.4-10.4); MONOCYTES 7.1 % (2-11); NEUTROPHILS 78.4 % (40-80); PLATELET COUNT 203 10x3/uL (130-400); RBC 3.64 10x6/uL (4.00-5.40); WBC 13.2 10x3/uL (4.8-10.8)
[2016-09-23 07:36] LABS: T4 THYROXINE 3.4 ug/dL (4.7-13.3); THYROID STIMULATING HORMONE 2.19 uIU/mL (0.36-3.74)
[2016-09-23 08:05] VITALS: BP 152/63
--- NOTE | 2016-09-23 08:20 | NUR ---
ASSESSMENT COMPLETED. FAMILY IN ROOM. CALL LIGHT IN REACH. WILL CONTINUE WITH PLAN OF CARE.
[2016-09-23 09:35] LABS: ERYTHROCYTE SEDIMENTATION RATE 75 mm/hr (0-30)
--- NOTE | 2016-09-23 10:52 | NUR ---
XANAX AND DILAUDID WITH AM MEDS ADMINISTERED. MILK OF MAG PO. AT BEDSIDE. CALL LIGHT IN REACH.
--- NOTE | 2016-09-23 11:05 | NUR ---
LAYING QUIETLY AT PRESENT RESP EVEN AND UNLABORED AT PRESENT DENIES ANY NEED AT THIS TIME.
[2016-09-23 12:15] VITALS: BP 161/58
--- NOTE | 2016-09-23 13:20 | NUR ---
RESTING WITH EYES CLOSED. RESP EVEN AND UNLABORED. CALL LIGHT IN REACH. FAMILY IN ROOM.
[2016-09-23 14:23] LABS: IGGS - IGG INDEX CSF 0.6 (0.0-0.7); IGGS - IGG SYNTHESIS RATE CSF 2.2 mg/day (-9.9 TO +3.3)
--- NOTE | 2016-09-23 15:09 | NUR ---
PO APRESOLINE CRUSHED WITH APPLESAUCE. ZOVIRAX PO. DILAUDID IVP. REPOSITIONED FOR COMFORT.
[2016-09-23 16:01] VITALS: BP 160/54
--- NOTE | 2016-09-23 16:51 | NUR ---
LYING IN BED WITH EYES CLOSED. RESP EVEN AND UNLABORED. FAMILY AT BEDSIDE. CALL LIGHT IN REACH.
[2016-09-23 17:41] LABS: APPEARANCE CLEAR (CLEAR); BILIRUBIN NEGATIVE (NEGATIVE); COLOR YELLOW (YELLOW); EPITHELIAL CELLS 0-5 /hpf (0-5); GLUCOSE NEGATIVE (NEGATIVE); KETONE NEGATIVE (NEGATIVE); LEUKOCYTE ESTERASE NEGATIVE (NEGATIVE); NITRITE NEGATIVE (NEGATIVE); PROTEIN NEGATIVE (NEGATIVE); RED CELLS - URINE 0-5 /hpf (0-5); SPECIFIC GRAVITY 1.015 (1.005-1.020); UROBILINOGEN NORMAL (NORMAL); WHITE CELLS - URINE 0-5 /hpf (0-5)
[2016-09-23 17:42] LABS: BACTERIA MANY /hpf (NONE SEEN)
--- NOTE | 2016-09-23 18:17 | NUR ---
DILAUDID 2 MG SIVP. NO OTHER CHANGES IN INITIAL ASSESSMENT. FAMILY IN ROOM. CALL LIGHT IN REACH. WILL CONTINUE WITH PLAN OF CARE.
[2016-09-23 20:00] VITALS: BP 181/78
--- NOTE | 2016-09-23 20:00 | NUR ---
ASSESSMENT PER FLOWSHEET. SPOUSE AT BEDSIDE. PT ON FIRST STEP AIR MATTRESS. IV PATENT RT UPPER ARM PICC LINE. NS AT 10CC'S INFUSING. REBOLLEDO TO BEDSIDE DRAINAGE WITH DEMARIO COLORED UA. HOB UP 40 DEBREES. RT ARM FLACCID ELEVATED ON A PILLOW.
[2016-09-23 20:08] LABS: HSV 1 DNA (PCR) Negative (Negative); HSV 2 DNA (PCR) Negative (Negative)
--- NOTE | 2016-09-23 21:42 | NUR ---
PATIENT MOANING OUT IF IN PAIN. AND ANXIOUS. DILAUDID 2MG SIVP GIVEN FOR PAIN CONTROL. XANAX 0.5MG PO CRUSHED IN APPLESAUCE GIVEN FOR RESTLESSNESS/ANXIETY. SR UP X3 CALL LIGHT WITHIN REACH.
--- NOTE | 2016-09-24 | NUR ---
CALM EYES CLOSED RESPIRATIONS WITH EASE AND UNLABORED.
--- NOTE | 2016-09-24 02:58 | NUR ---
PT MOANING OUT DILAUDID 2MG IVP SLOW GIVEN FOR PAIN CONTROL. REPOSITIONED IN BED.
--- NOTE | 2016-09-24 03:55 | NUR ---
RESTING XANAX 0.5MG PO GIVEN FOR RESTLESSNESS WITH APPLESAUCE REPOSITIONED IN BED.
[2016-09-24 04:00] VITALS: BP 177/80
[2016-09-24 04:33] LABS: BASOPHILS 0.2 % (0.0-2.0); HEMOGLOBIN 9.6 g/dL (12-16); IMMATURE GRANULOCYTES 0.2 % (0-5); LYMPHOCYTES 13.6 % (15-50); MCH 26.7 pg (26.0-34.0); MCV 89.1 fL (80.0-100.0); MEAN PLATELET VOLUME 8.3 fL (7.4-10.4); MONOCYTES 5.9 % (2-11); NEUTROPHILS 79.1 % (40-80); PLATELET COUNT 194 10x3/uL (130-400); RBC 3.59 10x6/uL (4.00-5.40); RDW 24.8 % (11.5-14.5)
[2016-09-24 05:11] LABS: ALBUMIN 2.4 g/dL (3.4-5.0); ANION GAP 13.7 mmol/L (8-16); BILIRUBIN - TOTAL 0.23 mg/dL (0.2-1.3); CALCIUM 8.9 mg/dL (8.5-10.1); PHENYTOIN (DILANTIN) 36.5 ug/mL (10.0-20.0); POTASSIUM - SERUM 3.7 mmol/L (3.5-5.1); PROTEIN - SERUM 6.4 g/dL (6.4-8.2)
--- NOTE | 2016-09-24 05:35 | NUR ---
NOTIFIED TETE RN CORRESPONDENCE [facility] DID NOT MAKE UP PT'S ZOVIRAX 0600 DOSE WILL NEED TO MAKE A DOSE UP
--- NOTE | 2016-09-24 06:10 | NUR ---
MOANING IF IN PAIN. DILAUDID 2MG IVP SLOWLY GIVEN FOR PAIN CONTROL.
[2016-09-24 08:29] VITALS: BP 237/87
--- NOTE | 2016-09-24 09:17 | NUR ---
ASSESSMENT COMPLETED. NORCO PO WITH AM MEDS. LACTULOSE AND MILK OF MAG PO. TAP WATER ENEMA X1 BAG. LARGE FORMED STOOL CAME OUT WITH THE TIP OF THE TUBING. PLACED ON BEDPAN TO SEE IF SHE CONTINUES TO HAVE BOWEL MOVEMENTS.
--- NOTE | 2016-09-24 11:05 | NUR ---
PT LYING SUPINE AT THIS TIME ON FIRST STEP OVERLAY. FOOT DROP BOOTS ON AND PT RECEIVING RESPIRATORY TREATMENT. SPOUSE AND SISTER AT BEDSIDE ASKING JOHNSON, SENIOR SPEECH PATHOLOGIST QUESTIONS. PT APPEARS AGGITATED AND IS TEARFUL, BUT NURSE IS AT BEDSIDE. CALL LIGHT IN REACH, WILL CONTINUE WITH PLAN OF CARE.
[2016-09-24 11:17] LABS: FUNGUS STAIN Final report (())
--- NOTE | 2016-09-24 11:32 | NUR ---
3RD ENEMA ADMINISTERED. ALSO PULLED IMPACTION OUT. CRYING IN PAIN. DILAUDID IVP. AT BEDSIDE. CALL LIGHT IN REACH.
[2016-09-24 12:28] VITALS: BP 238/83
--- NOTE | 2016-09-24 14:12 | NUR ---
SPOKE WITH RAYSA AT DR LAUREANO OFFICE IN REGARDS TO PT'S HYPERTENSION. SHE SAID SHE WOULD TELL DR LAUREANO.
--- NOTE | 2016-09-24 14:38 | NUR ---
GIVEN 1.25 VASOTEC SLOW IVP FOR BP 283/83. WILL MONITOR
--- NOTE | 2016-09-24 15:06 | NUR ---
BP NOW DOWN TO 170/63. DILAUDID IVP. DULCOLAX SUPPOSITORY GIVEN SINCE STOOL IS NOW BROKEN UP. FLEXERIL AND XANAX AND HYDRALAZINE CRUSHED AND ADMINISTERED WITH APPLESAUCE. FAMILY AT BEDSIDE. CALL LIGHT IN REACH.
--- NOTE | 2016-09-24 16:00 | NUR ---
RESTING WITH EYES CLOSED. RESP EVEN AND UNLABORED. CALL LIGHT IN REACH. FAMILY AT BEDSIDE.
[2016-09-24 16:28] VITALS: BP 173/60
--- NOTE | 2016-09-24 17:46 | NUR ---
OT NOTE: SANTIAGO COMPLETED UE POSITIONING FOR DECREASED RISK OF SKIN BREAKDOWN. THANK YOU, PAMELA MANE/El
--- NOTE | 2016-09-24 18:17 | NUR ---
DILAUDID IVP PER PAIN OF 10. NO OTHER CHANGES IN INITIAL ASSESSMENT. FAMILY IN ROOM. CALL LIGHT IN REACH. WILL CONTINUE WITH PLAN OF CARE.
[2016-09-24 19:00] VITALS: BP 239/80
--- NOTE | 2016-09-24 20:00 | NUR ---
ASSESSMENT PER FLOWSHEET. IV PATENT RT UPPER ARM PICC LINE NS AT 10CC'S/HR. REBOLLEDO TO BS DRAINAGE WITH DEMARIO URINE. SPOUSE AT BEDSIDE. PT ON FIRST STEP AIR BED. SR UP X3 CALL LIGHT WITHIN REACH.
--- NOTE | 2016-09-24 21:30 | NUR ---
MEDS GIVEN CRUSHED IN APPLSAUCE WITH APPLE JUICE TO FOLLOW. XANAX 0.5MG PO AND NORCO 5 TAB ONE PO GIVEN FOR MOANING AND RESTLESSNESS. REPOSITIONED IN BED.
--- NOTE | 2016-09-25 | NUR ---
1500CC'S SS ENEMA GIVEN FOR CONSTIPATION. MOM AND CHRONULAC GIVEN PO AT 2130 FOR CONSTIPATION. TOLERATED ENEMA WELL INC. OF TWO FORMED HARD STOOL BALLS AND BROWN WATER RETURNED.
--- NOTE | 2016-09-25 01:39 | NUR ---
CONTINUES TO MOAN DILAUDID 2MG IVP GIVEN FOR PAIN CONTROL.
--- NOTE | 2016-09-25 03:10 | NUR ---
INTERMITENT MOANING NOTED. REPOSITIONED IN BED INC. DARK BROWN WATERY STOOL. CLEANED AND DRIED.
--- NOTE | 2016-09-25 03:48 | NUR ---
RESTLESS MOANING AND GROANING. XANAX 0.5MG PO CRUSHED IN APPLESAUCE AND ALSO GIVEN PO APPLEJUICE WITH A SYRINGE.
--- NOTE | 2016-09-25 04:59 | NUR ---
INC BROWN WATERY STOOL COMPLETE BED BATH WITH LINENS CHANGED.REBOLLEDO CARE DONE. REPOSITIONED IN BED.
[2016-09-25 05:03] LABS: BASOPHILS 0.3 % (0.0-2.0); EOSINOPHILS 0.7 % (0-7); HEMATOCRIT 32.2 % (36.0-48.0); HEMOGLOBIN 9.5 g/dL (12-16); IMMATURE GRANULOCYTES 0.3 % (0-5); LYMPHOCYTES 13.9 % (15-50); MCH 26.7 pg (26.0-34.0); MCHC 29.5 g/dL (31.0-37.0); MCV 90.4 fL (80.0-100.0); MEAN PLATELET VOLUME 8.5 fL (7.4-10.4); MONOCYTES 6.6 % (2-11); NEUTROPHILS 78.2 % (40-80); PLATELET COUNT 189 10x3/uL (130-400); RBC 3.56 10x6/uL (4.00-5.40); RDW 24.8 % (11.5-14.5); WBC 11.5 10x3/uL (4.8-10.8)
[2016-09-25 05:22] LABS: CALCIUM 9.1 mg/dL (8.5-10.1); CARBON DIOXIDE 33.3 mmol/L (21.0-32.0); CHLORIDE - SERUM 109 mmol/L (98-107); GLUCOSE 108 mg/dL (74-106); SODIUM 149 mmol/L (136-145)
[2016-09-25 05:24] LABS: CALC OSMOLALITY 298 mosm/kg (275-300); CREATININE - SERUM 0.7 mg/dL (0.6-1.3); POTASSIUM - SERUM 3.1 mmol/L (3.5-5.1); UREA NITROGEN 18 mg/dL (7-18); eGFR NON AFRICAN AMERICAN > 90 mL/min (90-120)
[2016-09-25 09:17] LABS: PORPH 24HR - COPROPO III 51 ug/L (Undefined); PORPH 24HR - COPROPOR III 125 ug/24 hr (0-74); PORPH 24HR - COPROPORP I 39 ug/24 hr (0-24); PORPH 24HR - COPROPORPH I 16 ug/L (Undefined); PORPH 24HR - HEPTACARB 7 ug/24 hr (0-4); PORPH 24HR - HEPTACARBOXY 3 ug/L (Undefined); PORPH 24HR - HEXACARB <2 ug/24 hr (0-1); PORPH 24HR - HEXACARBOXYL <1 ug/L (Undefined); PORPH 24HR - PENTACARB <2 ug/24 hr (0-4); PORPH 24HR - PENTACARBOXY <1 ug/L (Undefined); PORPH 24HR - UROPOR 13 ug/L (Undefined); PORPH 24HR - UROPORPH 32 ug/24 hr (0-24)
[2016-09-25 09:52] VITALS: BP 197/86
[2016-09-25 10:23] LABS: HMU - MERCURY None Detected ug/L (0-19)
[2016-09-25 11:48] VITALS: BP 162/77
[2016-09-25 15:49] VITALS: BP 125/92
--- NOTE | 2016-09-25 18:00 | NUR ---
PATIENT RESTING QUIETLY WITH EYES CLOSED.
--- NOTE | 2016-09-25 18:47 | NUR ---
PATIENT MOANING LOUDLY. FAMILY AT BEDSIDE.
--- NOTE | 2016-09-25 19:00 | NUR ---
REBOLLEDO CARE COMPLETED
[2016-09-25 20:00] VITALS: BP 195/91
[2016-09-26] VITALS (8 sets, daily range): BP systolic 168–240; BP diastolic 75–118
--- NOTE | 2016-09-26 01:27 | NUR ---
PT MOANING AND YELLING OUT. GAVE DILAUDID 2 MG IVP PER PRN ORDER. WILL CONTINUE TO MONITOR FOR NEEDS.
--- NOTE | 2016-09-26 03:39 | NUR ---
GAVE PRN ENALAPRIL FOR BP 204/102 AND XANAX FOR AGITATION. REPOSITIONED AND TURNED. PT IS DRY. SIA BLOOD FOR AM LABS. NO OTHER NEEDS. WILL CONTINUE TO MONITOR.
[2016-09-26 04:49] LABS: BASOPHILS 0.2 % (0.0-2.0); EOSINOPHILS 1.2 % (0-7); HEMOGLOBIN 9.6 g/dL (12-16); IMMATURE GRANULOCYTES 0.3 % (0-5); LYMPHOCYTES 22.5 % (15-50); MCH 26.7 pg (26.0-34.0); MCHC 29.1 g/dL (31.0-37.0); MCV 91.7 fL (80.0-100.0); MEAN PLATELET VOLUME 8.7 fL (7.4-10.4); MONOCYTES 7.8 % (2-11); RDW 25.1 % (11.5-14.5); WBC 11.5 10x3/uL (4.8-10.8)
[2016-09-26 04:50] LABS: PLATELET COUNT 231 10x3/uL (130-400)
[2016-09-26 05:05] LABS: CALC OSMOLALITY 290 mosm/kg (275-300); CALCIUM 9.4 mg/dL (8.5-10.1); CARBON DIOXIDE 33.8 mmol/L (21.0-32.0); CHLORIDE - SERUM 108 mmol/L (98-107); CREATININE - SERUM 0.6 mg/dL (0.6-1.3); GLUCOSE 73 mg/dL (74-106); PHENYTOIN (DILANTIN) 33.2 ug/mL (10.0-20.0); POTASSIUM - SERUM 3.3 mmol/L (3.5-5.1); SODIUM 146 mmol/L (136-145); UREA NITROGEN 15 mg/dL (7-18); eGFR NON AFRICAN AMERICAN > 90 mL/min (90-120)
--- NOTE | 2016-09-26 07:20 | NUR ---
REPORT RECEIVED FROM ETCHER ENAMELING NURSE. CALL LIGHT IN REACH.
--- NOTE | 2016-09-26 07:53 | NUR ---
2ND BAG OF POTASSIUM INITIATED. SOLU-MEDROL IVPB PER ORDER. AT BEDSIDE. CALL LIGHT IN REACH.
--- NOTE | 2016-09-26 07:55 | NUR ---
PATIENT ALERT IN MID ROGERS POSITION. RESPIRATIONS EVEN AND UNLABORED. AND PRIMARY NURSE JOHNSON, FARMWORKER GRAIN PRESENT. SIDE RAILS UP X3. BED IN LOW POSITION. CALL LIGHT IN REACH.
--- NOTE | 2016-09-26 08:27 | NUR ---
LATE ENTRY: CASE MANAGEMENT CALLED [facility] ON THURSDAY (September) REGARDING TRANSFER STATUS. UAMA STATED THE TRANSFER WAS DROPPED DUE TO FURTHUR TEST NEEDED (CAROTID ARTERIOGRAM). CALLED DR. LAUREANO REGARDING RE-INITIATING TRANSFER AND HE STATED NO THAT THE TEST DID NOT HAVE THE RESULTS NEEDED FOR TRANSFER. NEUROLOGY WORKUP ON GOING.
--- NOTE | 2016-09-26 09:17 | NUR ---
ASSESSMENT COMPLETED. AM MEDS CRUSHED AND ADMINISTERED WITH APPLESAUCE. LACTULOSE, FLEXERIL, AND XANAX ALSO GIVEN. DILAUDID 2 MG SIVP PER C/O PAIN. AT BEDSIDE. CALL LIGHT IN REACH. WILL CONTINUE WITH PLAN OF CARE.
--- NOTE | 2016-09-26 11:05 | NUR ---
REPOSITIONED FOR COMFORT. NO CRYING OR DISTRESS NOTED AT THIS TIME.
--- NOTE | 2016-09-26 12:50 | NUR ---
NUTRITION MONITORING & EVAL SPEECH THERAPY NOTES REVIEWED. PT VISIT. FAMILY REPORTS PT STILL NOT EATING. NUMEROUS BOTTLES UNOPENED ENSURE IN ROOM. NO INTAKE BREAKFAST OR LUNCH. RECOMMEND CONSIDER NG OR PEG TUBE FEEDS. RD FOLLOWING
--- NOTE | 2016-09-26 13:39 | NUR ---
SCREAMING AND CRYING IN PAIN. DILAUDID 2 MG SIVP.
--- NOTE | 2016-09-26 14:25 | NUR ---
RESTING WITH EYES CLOSED. RESP EVEN AND UNLABORED. CALL LIGHT IN REACH.
--- NOTE | 2016-09-26 16:14 | NUR ---
XANAX. FLEXERIL, AND HYDRALAZINE CRUSHED WITH APPLESAUCE. DILAUDID 2 MG SIVP. BP 238/118. INFORMED CHARGE NURSE SO IV VASOTEC CAN BE GIVEN.
--- NOTE | 2016-09-26 18:20 | NUR ---
NO CHANGES IN INITIAL ASSESSMENT. FAMILY AT BEDSIDE. DISPOSABLE BED ALARM STILL ON. CALL LIGHT IN REACH. WILL CONTINUE WITH PLAN OF CARE,
--- NOTE | 2016-09-26 21:10 | NUR ---
LYING IN BED AWAKE, NC IN PLACE, REBOLLEDO DRAINING TO GRAVITY, IN ROOM, SAFETY MEASURES IN PLACE, CL IN REACH
[2016-09-27] VITALS: BP 169/94
[2016-09-27 04:00] VITALS: BP 181/80
[2016-09-27 05:09] LABS: BASOPHILS 0.4 % (0.0-2.0); EOSINOPHILS 1.5 % (0-7); HEMATOCRIT 32.5 % (36.0-48.0); HEMOGLOBIN 9.6 g/dL (12-16); IMMATURE GRANULOCYTES 0.4 % (0-5); LYMPHOCYTES 18.3 % (15-50); MCH 27.2 pg (26.0-34.0); MCHC 29.5 g/dL (31.0-37.0); MCV 92.1 fL (80.0-100.0); MEAN PLATELET VOLUME 8.7 fL (7.4-10.4); MONOCYTES 7.7 % (2-11); NEUTROPHILS 71.7 % (40-80); PLATELET COUNT 242 10x3/uL (130-400); RBC 3.53 10x6/uL (4.00-5.40); RDW 24.8 % (11.5-14.5)
[2016-09-27 05:46] LABS: ALBUMIN 2.3 g/dL (3.4-5.0); ALKALINE PHOSPHATASE 57 U/L (46-116); ALT (SGPT) 25 U/L (10-68); BILIRUBIN - TOTAL 0.23 mg/dL (0.2-1.3); CALC OSMOLALITY 291 mosm/kg (275-300); CALCIUM 9.2 mg/dL (8.5-10.1); CARBON DIOXIDE 32.3 mmol/L (21.0-32.0); CHLORIDE - SERUM 107 mmol/L (98-107); CREATININE - SERUM 0.5 mg/dL (0.6-1.3); GLUCOSE 94 mg/dL (74-106); MAGNESIUM - SERUM 1.5 mg/dL (1.8-2.4); PHENYTOIN (DILANTIN) 27.7 ug/mL (10.0-20.0); PHOSPHOROUS 3.2 mg/dL (2.5-4.9); PROTEIN - SERUM 6.9 g/dL (6.4-8.2); SODIUM 146 mmol/L (136-145); UREA NITROGEN 14 mg/dL (7-18); eGFR NON AFRICAN AMERICAN > 90 mL/min (90-120)
[2016-09-27 05:47] LABS: POTASSIUM - SERUM 3.2 mmol/L (3.5-5.1)
[2016-09-27 08:25] VITALS: BP 186/78
--- NOTE | 2016-09-27 08:44 | NUR ---
PT AOX4 PT C/O OF PAIN GENERALIZED THROUGHOUT, DR AT BEDSIDE WITH PT. FAMILY. RIGHT PICC PATENT AND INTACT. PT HERE FOR LOSS OF FUNCTION OF MOVEMENT OF BODY. BED AT LOWEST SETTING AND FAMILY AT BEDSIDE WILL CONTINUE TO MONITOR
--- NOTE | 2016-09-27 09:00 | NUR ---
MORNING MEDS PASSED. CRUSHED AND PUT INTO WARM PRUNE JUICE AND ADMINISTERED WITH 10CC SYRINGE. PT TOLERATED WELL. 40CC'S INGESTED. ORAL CARE PROVIDED. BED LOW, CALL LIGHT IN REACH, CPOC.
[2016-09-27 12:32] VITALS: BP 148/83
[2016-09-27 17:31] VITALS: BP 190/71
[2016-09-27 19:01] VITALS: BP 162/91
--- NOTE | 2016-09-27 19:20 | NUR ---
RECIEVED SHIFT REPORT. PT IS LYING IN BED. PT OPENS EYES TO STIMULI BUT IS NON-VERBAL. PT ONLY WHIMPERS AND MOANS AT THIS TIME. O2 @ 2 PER NASAL CANNULA. IV IS PATENT AND FLUIDS ARE RUNNING PER ORDER. REBOLLEDO IS DRAINING URINE BY GRAVITY. PT REQUIRES ASSISTANCE TURNING IN BED FOR COMFORT AND SKIN CARE. ON KAITY HENAO WOULD RATE PT PAIN 7/10. FAMILY IS AT THE BEDSIDE. WILL CONTINUE TO MONITOR. SIDE RAILS ARE UP X 2. BED IS IN LOWEST POSITION. BOX ALARM IS ON FOR SAFETY. CALL LIGHT IS WITHIN REACH.
--- NOTE | 2016-09-27 21:29 | NUR ---
SHIFT ASSESSMENT COMPLETED. NIGHT MEDS GIVEN CRUSHED AND WITH A SYRINGE ASSISTED PT TO SWALLOW. PRN XANAX ADMINISTERED FOR ANXIETY. FAMILY AT BEDSIDE. WILL MONITOR. SIDE RAILS X 2. BED LOW. BOX ALARM ON. CALL LIGHT IN REACH.
[2016-09-28] VITALS: BP 176/67
[2016-09-28 04:00] VITALS: BP 171/71
[2016-09-28 04:52] LABS: BASOPHILS 0.2 % (0.0-2.0); EOSINOPHILS 0.8 % (0-7); HEMATOCRIT 31.3 % (36.0-48.0); HEMOGLOBIN 9.2 g/dL (12-16); IMMATURE GRANULOCYTES 0.4 % (0-5); LYMPHOCYTES 15.2 % (15-50); MCH 26.9 pg (26.0-34.0); MCHC 29.4 g/dL (31.0-37.0); MCV 91.5 fL (80.0-100.0); MEAN PLATELET VOLUME 8.5 fL (7.4-10.4); MONOCYTES 7.1 % (2-11); NEUTROPHILS 76.3 % (40-80); PLATELET COUNT 229 10x3/uL (130-400); RBC 3.42 10x6/uL (4.00-5.40); RDW 24.9 % (11.5-14.5)
[2016-09-28 05:07] LABS: ALBUMIN 2.1 g/dL (3.4-5.0); ALKALINE PHOSPHATASE 57 U/L (46-116); ALT (SGPT) 27 U/L (10-68); CALC OSMOLALITY 292 mosm/kg (275-300); CALCIUM 8.8 mg/dL (8.5-10.1); CARBON DIOXIDE 34.6 mmol/L (21.0-32.0); CHLORIDE - SERUM 108 mmol/L (98-107); CREATININE - SERUM 0.4 mg/dL (0.6-1.3); GLUCOSE 117 mg/dL (74-106); POTASSIUM - SERUM 3.1 mmol/L (3.5-5.1); PROTEIN - SERUM 6.2 g/dL (6.4-8.2); SODIUM 146 mmol/L (136-145); UREA NITROGEN 15 mg/dL (7-18); eGFR NON AFRICAN AMERICAN > 90 mL/min (90-120)
--- NOTE | 2016-09-28 07:15 | NUR ---
REPORT RECEIVED FROM HIGH WORKER NURSE. CALL LIGHT IN REACH. NO DISTRESS NOTED.
[2016-09-28 08:16] VITALS: BP 173/99
--- NOTE | 2016-09-28 08:20 | NUR ---
ASSESSMENT COMPLETED. CALL LIGHT IN REACH. WILL CONTINUE WITH PLAN OF CARE.
--- NOTE | 2016-09-28 10:18 | NUR ---
AM MEDS ADMINISTERED. DILAUDID, XANAX, AND FLEXERIL ALSO ADMINISTERED. RT IN ROOM TO DO BREATHING TREATMENT.
--- NOTE | 2016-09-28 10:58 | NUR ---
ULTRA SOUND TECHNICIAN STATED THAT BP WAS TAKEN TWICE. ONE READ 169/85 AND THE OTHER WAS 207/77. MEDS WERE GIVEN 45 MINUTES AGO. WILL WAIT ANOTHER 30 MINUTES TO SEE IF BP HAS GONE DOWN. IF NOT, WILL HAVE RN TO GIVE IV VASOTEC.
[2016-09-28 11:21] VITALS: BP 169/85
--- NOTE | 2016-09-28 12:43 | NUR ---
PATIENT IS RESTING WITH EYES CLOSED. NO SIGNS OF DISTRESS NOTED. HOB 40 DEGREES. BED IN LOWEST POSITION, CALL LIGHT IN REACH. BED RAILS UP X'S 2. PATIENT IS RECIEVING OXYGEN VIA NASAL CANNULA AT 2L/MIN.
--- NOTE | 2016-09-28 14:12 | NUR ---
RESTING WITH EYES CLOSED. RESP EVEN AND UNLABORED. RT IN ROOM TO DO BREATHING TREATMENT.
--- NOTE | 2016-09-28 14:46 | NUR ---
BP NOW 179/83. WILL GIVE SCHEDULED HYDRALAZINE NOW. IF IT DOES NOT GO DOWN AFTERWARDS, WILL HAVE RN GIVE IV VASOTEC.
--- NOTE | 2016-09-28 16:00 | NUR ---
BLOOD DRAWN FROM RIGHT UA PICC LINE FOR REPEAT POTASSIUM LEVEL. ALSO IV VASOTEC ADMINISTERED PER JOSHUA IVERSON.
[2016-09-28 16:36] VITALS: BP 163/81
--- NOTE | 2016-09-28 18:32 | NUR ---
NO CHANGES IN INITIAL ASSESSMENT. CALL LIGHT IN REACH. BOX ALARM ON. WILL CONTINUE WITH PLAN OF CARE.
--- NOTE | 2016-09-28 19:15 | NUR ---
RECIEVED SHIFT REPORT. PT IS LYING IN BED. PT HAS OPENED EYES TO VOICE BUT CANNOT VERBALIZE WHERE SHE IS OR WHY AT THIS TIME. O2 @ 2 PER NASAL CANNULA. PT REQUIRES ASSISTANCE TURNING IN BED FOR COMFORT AND SKIN CARE. REBOLLEDO IS DRAINING URINE BY GRAVITY. IV IS PATENT AND FLUIDS ARE RUNNING PER ORDER. PT 3/10 ON BRICENO HENAO PAIN SCALE. WILL CONTINUE TO MONITOR. SIDE RAILS ARE UP X 2. BED IS IN LOWEST POSITION. BOX ALARM IS ON FOR SAFETY. CALL LIGHT IN REACH.
[2016-09-28 20:00] VITALS: BP 161/91
--- NOTE | 2016-09-28 21:14 | NUR ---
SHIFT ASSESSMENT COMPLETED. NIGHT MEDS GIVEN CRUSHED AND ADMINISTERED IN A SYRINGE WITH NO PROBLEMS. PT PROVIDED ICE CHIPS WELL. WILL MONITOR. SIDE RAILS X 2. BED LOW. BOX ALARM ON. CALL LIGHT IN REACH.
[2016-09-29] VITALS (7 sets, daily range): BP systolic 131–190; BP diastolic 66–84
[2016-09-29 05:25] LABS: BASOPHILS 0.2 % (0.0-2.0); EOSINOPHILS 1.4 % (0-7); HEMATOCRIT 30.4 % (36.0-48.0); HEMOGLOBIN 9.2 g/dL (12-16); IMMATURE GRANULOCYTES 0.5 % (0-5); LYMPHOCYTES 14.9 % (15-50); MCH 27.8 pg (26.0-34.0); MCHC 30.3 g/dL (31.0-37.0); MCV 91.8 fL (80.0-100.0); MEAN PLATELET VOLUME 8.6 fL (7.4-10.4); MONOCYTES 7.6 % (2-11); NEUTROPHILS 75.4 % (40-80); PLATELET COUNT 248 10x3/uL (130-400); RBC 3.31 10x6/uL (4.00-5.40); RDW 25.3 % (11.5-14.5); WBC 8.8 10x3/uL (4.8-10.8)
[2016-09-29 05:56] LABS: CALC OSMOLALITY 294 mosm/kg (275-300); CALCIUM 8.8 mg/dL (8.5-10.1); CARBON DIOXIDE 30.4 mmol/L (21.0-32.0); CHLORIDE - SERUM 111 mmol/L (98-107); CREATININE - SERUM 0.4 mg/dL (0.6-1.3); GLUCOSE 92 mg/dL (74-106); PHENYTOIN (DILANTIN) 18.9 ug/mL (10.0-20.0); SODIUM 148 mmol/L (136-145); UREA NITROGEN 15 mg/dL (7-18); eGFR NON AFRICAN AMERICAN > 90 mL/min (90-120)
--- NOTE | 2016-09-29 07:15 | NUR ---
PATIENT RECEIVED IN HIGH ROGERS POSITION RESTING WITH EYES CLOSED. RESPIRATIONS EVEN AND UNLABORED. SIDE RAILS UP X2. BED IN LOW POSITION. CALL LIGHT IN REACH. PRESENT.
--- NOTE | 2016-09-29 08:15 | NUR ---
PATIENT IN HIGH ROGERS POSITION RESTING QUIETLY. RESPIRATIONS EVEN AND UNLABORED. SCHEDULED MEDICATION ADMINISTERED CRUSHED WITH APPLESAUCE. WELL TOLERATED. AT BEDSIDE. SIDE RAILS UP X2. BED IN LOW POSITION. CALL LIGHT IN REACH.
--- NOTE | 2016-09-29 10:40 | NUR ---
PATIENT IN BED CRYING. WHEN ASKED IF SHE WAS HURTING, REPLIED WITH YES. C/O PAIN TO ABD. DILAUDID ADMINISTERED PER PRN ORDER. PATIENT REPOSITIONED IN BED FOR COMFORT. SIDE RAILS UP X2. BED IN LOW POSITION. CALL LIGHT IN REACH.
--- NOTE | 2016-09-29 11:00 | NUR ---
PATIENT WITH SOFT BM THAT APPEARS TO HAVE BLOOD IN IT. SAMPLE OBTAINED. ORDERS TO CONSULT GI PHYSICIAN.
--- NOTE | 2016-09-29 11:20 | NUR ---
REBOLLEDO CATH CHANGED PER PROTOCOL BY JOSHUA TABARES. SECURED TO RIGHT THIGH WITH STAT LOCK. WELL TOLERATED.
--- NOTE | 2016-09-29 13:42 | NUR ---
OT NOTE: SISTER AT BEDSIDE; PT STARTING TO VERBALIZE, HOWEVER, FAIRLY UNINTELLIGABLE; PERFORMED PROM TO R UE; NOTED A LARGE BUMP ON R HAND ON DORSAL SURFACE WHICH WAS NOT NOTED UPON INITITAL EVAL. THE EDEMA HAS GONE DOWN SIGNIFICANTLY , THEREFORE, THAT MAY BE WHY IT WAS NOT NOTICED. SHE TOLERATED ROM WELL, HOWEVER, SISITER SAID SHE HAS BEEN COMPLAINING OF STOMACH PAIN ALL DAY AND HAS HAD A BM
--- NOTE | 2016-09-29 14:03 | NUR ---
PATIENT REPOSITIONED IN BED. PILLOW PLACED BENEATH RIGHT SIDE. WELL TOLERATED. PATIENT IN BED CRYING. WHEN ASKED WHAT HURT SHE REPLIED BY STOMACH CRAMPS. MEDICATION ADMINISTERED PER ORDERS. SIDE RAILS UP X3. BED IN LOW POSITION. CALL LIGHT IN REACH. BOX ALARM ON AND ATTACHED TO PATIENT.
--- NOTE | 2016-09-29 17:08 | NUR ---
ALERT IN BED WITH FAMILY PRESENT. NO SIGNS OF DISTRESS NOTED. DILAUDID PER PRN ORDER. SIDE RAILS UP X2. BED IN LOW POSITION. CALL LIGHT IN REACH.
--- NOTE | 2016-09-29 20:00 | NUR ---
ASSESSMENT PER FLOWSHEET. SITTING UPRIGHT IN BED. SPOUSE IS SPOONFEEDING HER SOME DESSERT. IV RT UPPER ARM PICC SALINE LOCKED. REBOLLEDO TO BEDSIDE DRAINAGE WITH YELLOW URINE. SR UP X2 CALL LIGHT WITHIN REACH BED ALARM BOX ON.
--- NOTE | 2016-09-29 21:00 | NUR ---
MEDS GIVEN PER MAR. FLEXERIL GIVEN FOR MUSCLE SPASMS.
--- NOTE | 2016-09-29 22:11 | NUR ---
C/O STOMACH ACHE RATES PAIN LEVEL #5 NORCO 5 TAB ONE PO GIVEN FOR PAIN CONTROL.
[2016-09-30] VITALS: BP 164/72
--- NOTE | 2016-09-30 00:51 | NUR ---
TURNED Q2HR INC SMALL DARK STOOL CLEANED AND DRIED. HOB UP 35 DEGREES.
--- NOTE | 2016-09-30 02:00 | NUR ---
REPOSITIONED IN BED RESTING QUIETLY DENIES NEEDS.
[2016-09-30 04:00] VITALS: BP 155/73
--- NOTE | 2016-09-30 04:30 | NUR ---
REPOSITIONED IN BED PILLOWS UNDER LEGS AND ARMS SR UP X2 CALL LIGHT WITHIN REACH BOX ALARM ON
--- NOTE | 2016-09-30 05:30 | NUR ---
LAB DRAWN FROM PICC LINE AND FLUSHED WITH NS. INC LARGE SOFT FORMED DARK STOOL. CLEANED AND DRIED. PARTIAL LINENS CHANGED DONE
[2016-09-30 06:01] LABS: HEMATOCRIT 30.6 % (36.0-48.0); HEMOGLOBIN 9.5 g/dL (12-16); LYMPHOCYTES 18.9 % (15-50); MCH 28.1 pg (26.0-34.0); MCV 90.5 fL (80.0-100.0); MEAN PLATELET VOLUME 7.8 fL (7.4-10.4); NEUTROPHILS 71.8 % (40-80); RBC 3.38 10x6/uL (4.00-5.40); RDW 25.5 % (11.5-14.5)
[2016-09-30 06:02] LABS: PLATELET COUNT 323 10x3/uL (130-400); WBC 11.5 10x3/uL (4.8-10.8)
[2016-09-30 06:17] LABS: CALC OSMOLALITY 287 mosm/kg (275-300); CALCIUM 8.5 mg/dL (8.5-10.1); CARBON DIOXIDE 30.2 mmol/L (21.0-32.0); CHLORIDE - SERUM 108 mmol/L (98-107); CREATININE - SERUM 0.5 mg/dL (0.6-1.3); GLUCOSE 113 mg/dL (74-106); SODIUM 143 mmol/L (136-145); UREA NITROGEN 17 mg/dL (7-18); eGFR NON AFRICAN AMERICAN > 90 mL/min (90-120)
[2016-09-30 06:19] LABS: POTASSIUM - SERUM 3.1 mmol/L (3.5-5.1)
--- NOTE | 2016-09-30 06:30 | NUR ---
MEDS GIVEN IN APPLESAUCE WITH APPLE JUICE TO FOLLOW.
--- NOTE | 2016-09-30 07:00 | NUR ---
PATIENT RECEIVED ALERT IN LOW ROGERS POSITION. RESPIRATIONS EVEN AND UNLABORED. AND PHYSICIAN AT BEDSIDE. SIDE RAILS UP X2. BED IN LOW POSITION. CALL LIGHT IN REACH.
[2016-09-30 07:38] VITALS: BP 168/74
--- NOTE | 2016-09-30 08:39 | NUR ---
PATIENT ALERT IN BED EATING BREAKFAST WITH ASSIST FROM . SCHEDULED MEDICATION ADMINISTERED CRUSHED WITH APPLESAUCE. WELL TOLERATED. RESPOSITIONED FOR COMFORT. SIDE RAILS UP X3. BED IN LOW POSITION. CALL LIGHT IN REACH.
[2016-09-30 09:17] LABS: VIRAL - RESULT No virus isolated. (())
--- NOTE | 2016-09-30 11:30 | NUR ---
PATIENT IN LOW ROGERS POSITION RESTING WITH EYES CLOSED. RESPIRATIONS EVEN AND UNLABORED. SIDE RAILS UP X2. BED IN LOW POSITION. CALL LIGHT IN REACH. BED ALARM ON.
[2016-09-30 11:54] VITALS: BP 142/72
--- NOTE | 2016-09-30 14:35 | NUR ---
OT NOTE: PT MORE ALERT TODAY; SHE WAS ABLE TO ANSWER YES/NO QUESTIONS ACCURATELY; WAS VERY LABILE THROUGHOUT TMT SESSION STATING , " I FEEL SO STUPID BECAUSE I CANT DO ANYTHING". EXPLAINED TO HER THAT SHE WAS DOING SO MUCH BETTER THAN YESTERDAY AND LAST WEEK. SEVERAL ATTEMPTS AT FOLLOWING PHYSICAL COMANDS INCLUDING: TOUCHING HER HEAD, STOMACH, ETC... WHICH SHE WAS UNABLE TO DO WITH HER STRONGER ARM( THE LEFT). PERFORMED PROM TO B UES WITH NO REPORTS OF PAIN. ATTEMPTED TO REPOSITION PTS UPPER BODY, BUT SHE BEGAN GRIMACING. SHE REPORTED THAT SHE WAS NOT UNCOMFORTABLE. ELEVATED R UE TO PREVENT EDEMA
--- NOTE | 2016-09-30 15:10 | NUR ---
PATIENT IN BED CRYING. DENIES PAIN. WHEN ASKED WHAT WAS WRONG PATIENT STATES "I'M JUST DEPRESSED." XANAX ADMINISTERED PER PRN ORDER. SAT AND TALKED WITH PATIENT. NO FURTHER NEEDS VOICED. SIDE RAILS UP X3. BED IN LOW POSITION. CALL LIGHT IN REACH.
[2016-09-30 15:49] VITALS: BP 142/69
--- NOTE | 2016-09-30 16:26 | NUR ---
PATIENT ALERT IN BED. NO SIGNS OF DISTRESS NOTED. C/O CRAMPING TO ABD. CARAFATE, LEVSIN AND NORCO PER PRN ORDERS. CONTINUES TO STATE SHE IS SAD AND LONELY. VISITED WITH PATIENT. DENIES FURTHER NEEDS. SIDE RAILS UP X3. BED IN LOW POSITION. CALL LIGHT IN REACH.
--- NOTE | 2016-09-30 18:13 | CN ---
PATIENT NAME:MARK CASTREJON MEDICAL RECORD: [id number] : 57 LOCATION:[facility] ADMIT DATE: 08/21/16 ACCOUNT: [id number] CONSULTING PHYSICIAN: AUSTIN GONSALES MD REFERRING PHYSICIAN: ANN LAUREANO MD DATE OF CONSULTATION: 09/29/2016 Gastrointestinal Consultation REFERRING PHYSICIAN: Dr. Reeder. HISTORY OF PRESENT ILLNESS: The patient is a 61-year-old white female, who was admitted, I believe on August 21 with acute mental status changes and a seizure. She has had a prolonged hospital course including febrile illness, but now, has 24 hours of some mild hematochezia with blood noticed in her bowel movement. She has chronic constipation, apparently was impacted last week. She had been given senna and Dulcolax tablets. She can give no history whatsoever, but apparently has a history of underlying lactose intolerance, chronic constipation. She has had a DVT since admission, had been placed on Eliquis. She is also on IV steroids. She does not appear to be in any distress. She is tolerating a regular diet. PAST MEDICAL HISTORY: Remarkable for severe rheumatoid arthritis, lupus, new onset seizures, and COPD. PAST SURGICAL HISTORY: Remarkable for hysterectomy, L-spine fusion as well as a left knee arthroscopic surgery. ALLERGIES: PENICILLIN. CURRENT MEDICATIONS: Include potassium, Lyrica, Dilantin, methylprednisolone, amlodipine, metoprolol, Vasotec, hydralazine, Protonix 40 mg daily, Eliquis, albuterol updraft, Pulmicort, Brovana, and lisinopril. SOCIAL HISTORY: The patient is a former smoker. She has no history of alcohol use. FAMILY HISTORY: Negative for GI disease. REVIEW OF SYSTEMS: Noncontributory other than HPI. Again, they are basically unobtainable with the patient. PHYSICAL EXAMINATION: GENERAL: Reveals a white female, who is minimally responsive. VITAL SIGNS: Stable. She is afebrile. CHEST: Clear. HEART: Regular rate and rhythm. ABDOMEN: Soft and nontender. EXTREMITIES: No edema. LABORATORY DATA: Reveals a hematocrit of 30 down from 32 two days ago. Her MCV is 91. Electrolytes are normal. BUN 15, creatinine 0.4. Liver enzymes are normal. C-reactive protein is 14.8. TSH is normal. KUB from 4 days ago CONSULT REPORT [id number] MARK CASTREJON revealed mild constipation. IMPRESSION: 1. New onset of very mild hematochezia with a stable hematocrit of unclear etiology, most likely due to hemorrhoids or stercoral ulcer from constipation issues, obviously exacerbated by Eliquis and steroid use. 2. Mental status changes, chronic, times over 1 month of unclear etiology. 3. History of chronic constipation, on stimulant laxatives at present. 4. Reported history of lactose intolerance. RECOMMENDATIONS: 1. She is not a good candidate for endoscopy at this point, especially until her confusion resolves, if it ever will. 2. Try changing her laxatives to osmotic laxatives plus mineral. 3. Try Anusol HC suppositories. 4. Check KUB again. 5. If her bleeding continues despite the above, consider CT of the abdomen and pelvis, changing her Eliquis to something little less potent or even flexible sigmoidoscopy. TRANSINT:[id number] Voice Confirmation ID: [id number] DOCUMENT ID: [id number] AUSTIN GONSALES MD at 1813 CC: [id number] DICTATION DATE: 09/29/16 1757 BOG WORKER: 09/30/16 0000 ADM IN [facility] [address] [place] [address]
--- NOTE | 2016-09-30 18:31 | NUR ---
OT NOTE: PT COMPLETED BUE PROM FOR INCREASED CIRCULATION AND PROMOTE FUNCTIONAL AROM. PT COMPLETED BUE POSITIONING FOR DECREASED RISK OF SKIN BREAKDOWN AND BED MOB WITH CORNELIO Vuong THANK YOU, PAMELA MANE/El
[2016-09-30 20:00] VITALS: BP 145/65
[2016-10-01 04:00] VITALS: BP 150/70
--- NOTE | 2016-10-01 06:00 | NUR ---
C/O STOMACH CRAMPS LEVSIN TAB ONE PO GIVEN FOR CRAMPS. NO CHANGES IN ASSESSMENT SEE DOWN TIME NURSES NOTES AND ASSESSMENT.
[2016-10-01 06:30] LABS: BASOPHILS 0.5 % (0.0-2.0); EOSINOPHILS 0.8 % (0-7); HEMATOCRIT 31.3 % (36.0-48.0); HEMOGLOBIN 9.5 g/dL (12-16); IMMATURE GRANULOCYTES 1.6 % (0-5); LYMPHOCYTES 20.9 % (15-50); MCH 27.9 pg (26.0-34.0); MCHC 30.4 g/dL (31.0-37.0); MCV 91.8 fL (80.0-100.0); MEAN PLATELET VOLUME 8.9 fL (7.4-10.4); MONOCYTES 6.9 % (2-11); NEUTROPHILS 69.3 % (40-80); PLATELET COUNT 351 10x3/uL (130-400); RBC 3.41 10x6/uL (4.00-5.40); RDW 25.6 % (11.5-14.5); WBC 12.8 10x3/uL (4.8-10.8)
--- NOTE | 2016-10-01 07:15 | NUR ---
PATIENT RECEIVED ALERT IN MID ROGERS POSITION. RESPIRATIONS EVEN AND UNLABORED. SIDE RAILS UP X2. BED IN LOW POSITION. CALL LIGHT IN REACH. BOX ALARM ON.
[2016-10-01 07:30] LABS: CALC OSMOLALITY 282 mosm/kg (275-300); CALCIUM 8.6 mg/dL (8.5-10.1); CARBON DIOXIDE 27.8 mmol/L (21.0-32.0); CHLORIDE - SERUM 106 mmol/L (98-107); CREATININE - SERUM 0.5 mg/dL (0.6-1.3); GLUCOSE 105 mg/dL (74-106); MAGNESIUM - SERUM 1.3 mg/dL (1.8-2.4); POTASSIUM - SERUM 3.1 mmol/L (3.5-5.1); SODIUM 142 mmol/L (136-145); UREA NITROGEN 13 mg/dL (7-18); eGFR NON AFRICAN AMERICAN > 90 mL/min (90-120)
--- NOTE | 2016-10-01 08:30 | NUR ---
PATIENT ALERT IN BED. RESPIRATIONS EVEN AND UNLABORED. SCHEDULED MEDICATION ADMINISTERED. POTASSIUM AND MAG REPLACED PER PROTOCOL. PATIENT TOLERATED ALL OF BREAKFAST. DENIES NEEDS. SIDE RAILS UP X2. BED IN LOW POSITION. CALL LIGHT IN REACH. BOX ALARM ON.
[2016-10-01 09:00] VITALS: BP 115/69
--- NOTE | 2016-10-01 11:00 | NUR ---
PICC LINE DRESSING CHANGED BY [facility] STUDENTS AND INSTRUCTOR
--- NOTE | 2016-10-01 12:27 | NUR ---
NUTRITION MONITORING & EVAL CHART REVIEWED, PT VISIT. 100% INTAKE BREAKFAST WITH ASSIST. WILL CONTINUE TO PROVIDE DIET, MONITOR PO INTAKE. RD FOLLOWING
--- NOTE | 2016-10-01 12:50 | NUR ---
ALERT IN BED EATING LUNCH WITH ASSIST FROM SISTER. NO SIGNS OF DISTRESS NOTED. SIDE RAILS UP X2. BED IN LOW POSITION. CALL LIGHT IN REACH. BOX ALARM ON.
[2016-10-01 13:34] VITALS: BP 102/58
--- NOTE | 2016-10-01 14:00 | NUR ---
ALERT IN BED RESTING QUIETLY. RESPIRATIONS EVEN AND UNLABORED. DENIES PAIN. SIDE RAILS UP X2. BED IN LOW POSITION. CALL LIGHT IN REACH.
--- NOTE | 2016-10-01 15:31 | NUR ---
OT NOTE: PT MORE CONVERSANT TODAY; PERFORMED SEVERAL ORIENTATION TASKS WITH PT..SHE REMAINS DISORIENTED TO TIME, PLACE, AND SITUATION. ATTEMPTED VARIOUS VISUAL ACTIVITIES, HOWEVER, PT WOULD NOT OPEN HER EYES. WHEN ASKED TO OPEN EYES AND TELL THERAPIST HOW MANY FINGERS SHE SAW , OR THE COLOR OF VARIOUS ITEMS IN ROOM, PT WOULD GIVE AN ANSWER WITHOUT OPENING EYES. CONTINUALLY ATTEMPTED TO GET PT TO OPEN HER EYES AND SHE CONTINUALLY STATED, " MY EYES ARE OPEN..I CAN SEE EVERYTHING". PERFORMED PROM TO B UES; PT CONT TO EXHIBIT SEVERE SENSATION DEFECITS IN BOTH UES AND LES
--- NOTE | 2016-10-01 16:05 | NUR ---
PATIENT ALERT IN BED. REPOSITIONED FOR COMFORT. WELL TOLERATED. SCHEDULED MEDICATION ADMINISTERED. DENIES PAIN. SIDE RAILS UP X2. BED IN LOW POSITION. CALL LIGHT IN REACH.
[2016-10-01 17:16] VITALS: BP 121/66
--- NOTE | 2016-10-01 17:30 | NUR ---
ALERT IN BED EATING DINNER WITH ASSIST FROM FAMILY. TOLERATING WELL. SIDE RAILS UP X2. BED IN LOW POSITION. CALL LIGHT IN REACH.
--- NOTE | 2016-10-01 19:06 | NUR ---
OT NOTE: PT COMPLETED BUE PROM FOR INCREASED CIRULATION AND DECREASE RISK OF CONTRACTURE. PT COMPLETED BUE POSITIONING TO DECREASE RISK OF SKIN BREAKDOWN. THANK YOU, PAMELA MANE/El
[2016-10-01 20:00] VITALS: BP 100/48
[2016-10-02] VITALS: BP 93/53
--- NOTE | 2016-10-02 01:32 | NUR ---
ASSESSED AT THE BEGINNING OF THE SHIFT.SHE IS ALERT AND ORIENTED BUT IS FLACID TO THE RIGHT SIDE. FAMILY WAS IN THE ROOM UNTIL ABOUT 2200. SHE STILL HAS A REBOLLEDO CATH BUT IS EITHER USING A BEDPAN FOR STOOL OR IS INCONT. WITH BEDTIME MEDS WE CRUSHED THEM AND SHE DID WELL TAKING THEM WITH PUDDING AND THEN EATING THE REST OF THE PUDDING. WE TURN AND REPOSITION HER FOR COMFORT AND SKIN CARE PER PROTOCOL. THERE IS O2 AT 2 LITERS PER N/C. THE BED IS LOW, RAILS UP X'S 2 WITH THE CALL LIGHT AT HAND.
[2016-10-02 04:00] VITALS: BP 156/66
[2016-10-02 07:57] VITALS: BP 184/81
--- NOTE | 2016-10-02 08:00 | NUR ---
ASSESSMENT PER FLOW SHEET.PT WITHOUT DISTRESS.REPOSITIONED FOR COMFORT.CREAM APPLIED TO BUTTOCKS AND CLAY AREA. AT BEDSIDE.BOX ALARM IN PLACE.
--- NOTE | 2016-10-02 09:00 | NUR ---
AM MEDS.UNABLE TO GET PICC LINE TO FLUSH ,GRICELDA ADEN.CALL TO [facility]
--- NOTE | 2016-10-02 10:33 | NUR ---
PAGE TO OFFICE FOR CATHFLO TO GET PICC LINE FUNCTIONING PER REQEST OF [facility] VASCULAR NURSE.
--- NOTE | 2016-10-02 12:00 | NUR ---
LYING IN BED,WITHOUT DISTRESS.DOOR OPEN TO MONITOR.
[2016-10-02 12:20] VITALS: BP 128/54
--- NOTE | 2016-10-02 12:22 | NUR ---
OT NOTE: PT MORE ALERT TODAY; EYES OPEN BUT UNABLE TO REPOSITION HEAD, SHE WAS LOOKING TO L SIDE; PT COMPLAINING OF MUSCLE SPASM IN R UE, WHICH WAS VERY EDEMATOUS TODAY; PERFORMED RETROGRADE MASSAGE TO R UE AND REPOSITIONED ON PILLOW FOR ELEVATION. PT REPORTED THAT IT FELT GOOD AND SHE WAS ABLE TO INDICATE WHICH AREA WAS BEING MASSAGED. PERFORMED ORIENTATION TASKS, HOWEVER, PT REMAINS DISORIENTED. SHE WAS ABLE TO SEE AND REPORT CORRECT COLOR OF SHIRT THIS THERAPIST WAS WEARING, BUT UNABLE TO VISUALLY LOCATE OTHER OBJECTS IN THE ROOM, INDICATING THAT HER PERIPHERAL VISION WAS INTACT
--- NOTE | 2016-10-02 14:05 | NUR ---
Called to evaluate PICC line that is "not working." Nurse called MD and order received for cathflo. Cathflo administered as ordered with 2 mg per lumen. Re evaluated after 30 minutes and both lumens flow much improved and now with blood return. Trang Gonsales RN
--- NOTE | 2016-10-02 15:31 | NUR ---
BATH AND BED CHANGE COMPLETE BY BUSINESS RULES ANALYST'S.
[2016-10-02 16:14] VITALS: BP 118/56
--- NOTE | 2016-10-02 18:26 | NUR ---
OT NOTE: PT COMPLETED SELF FEEDING WITH MAX ASSIST. THANK YOU, PAMELA MANE/El
[2016-10-02 23:39] VITALS: BP 151/67
--- NOTE | 2016-10-02 23:56 | NUR ---
ASSESSED AT THE BEGINNING OF THE SHIFT. PT IS ALERT AND ABLE TO VERBALIZE NEEDS BUT IS A TOTAL CARE DUE TO LACK OF BODY MOVEMENTS AT THIS TIME. HER IS IN THE ROOM WITH HER AT THIS TIME AND HAS MASSAGED HER LEGS FOR HER. SHE ALSO REVEICED FLEXERIL FOR LEG CRAMPS BUT SHE STATED IT WAS NOT HELPING. MEDS WERE CRUSHED AND GIVEN WITH PUDDING. SHE TOOK NORCO FOR PAIN AND XANAX FOR REST. SHE IS ABLE TO DRINK WATER FROM A STRAW AFTER TAKING HER MEDS. WE ARE TURNING AND REPOSITIONING HER FOR COMFORT AND SKIN CARE. THE BED IS LOW, RAILS UP X'S 2 WITH THE CALL LIGHT AT HAND. HER LEFT TO GO HOME AT ABOUT 2300.
[2016-10-03 05:28] VITALS: BP 171/80
--- NOTE | 2016-10-03 07:00 | NUR ---
REPORT RECIEVED ASSUMED CARE. PATIENT IN BED WITH IV INTACT. NO COMPLAINTS AT THIS TIME. CALL LIGHT WITHIN REACH.
[2016-10-03 08:18] VITALS: BP 153/57
--- NOTE | 2016-10-03 12:11 | NUR ---
OT NOTE: PT VERY LABILE AGAIN TODAY; PT REPORTED THAT SHE WAS MISSING HER ; INFORMED PT THAT HE WOULD BE BACK SOON. PERFORMED PROM TO ALL EXTREMETIES; PT WITH INCREASED MEDICAL RECORD CLERK STRENGTH IN R HAND; PRACTICED FUNCTIONAL TASKS INCLUDING USE OF CALL LIGHT. PT WAS ABLE TO SQUEEZE CALL BUTTON WITH L HAND WITH ENCOURAGEMENT 2/3 TIMES; ABLE TO PERFORM INDEP 1 TIME; PT REMAINS WITH ONLY PERIPHERAL VISION, HOWEVER, SHE WAS ABLE TO OPEN HER EYES ON COMMAND TODAY; PT EXHIBITED SOME SENSATION IN B FEET; HOWEVER, NOTHING IN REMAINDER OF EXTREMETIES
[2016-10-03 13:02] VITALS: BP 179/77
--- NOTE | 2016-10-03 16:03 | NUR ---
OT NOTE: PT COMPLETED BUE PROM FOR INCREASED ROM. THANK YOU, PAMELA MANE/El
[2016-10-03 16:31] VITALS: BP 192/72
--- NOTE | 2016-10-03 18:45 | NUR ---
PATIENT IN BED WITH NO COMPLAINTS OR SIGNS OF DISTRESS. LAYING ON SIDE WITH HEELS FLOATING. FOOT DROP BOOTS ON. FAMILY AT BEDSIDE. CALL LIGHT WITHIN REACH.
--- NOTE | 2016-10-03 19:30 | NUR ---
PT RECEIVED RESTING IN BED WITH EYES CLOSED. PT AROUSES TO VERBAL STIMULI. ASSESSMENT COMPLETE, SEE SHIFT ASSESSMENT. CALL LIGHT AND H2O IN PT REACH. PT SPOUSE AT BEDSIDE. BED IN LOW POSITION. SIDE RAILS UP X2.
[2016-10-03 20:33] VITALS: BP 177/75
--- NOTE | 2016-10-03 21:30 | NUR ---
PT RESTING IN BED WITH EYES CLOSED. NO S/S OF DISTRESS NOTED. BED IN LOW POSITION. SIDE RAILS UP X2. CALL LIGHT AND H2O IN PT REACH.
[2016-10-04 00:17] VITALS: BP 157/74
--- NOTE | 2016-10-04 04:44 | NUR ---
WHEN PT WAS CHECKED ON SHE WAS WEEPY AND WORRIED ABOUT HER SITUATION. AFTER TALKING WITH HER FOR A WHILE SHE WAS CALMER AND WAS GOING TO TRY TO GO TO SLEEP. THE BED IS LOW, RAILS UP X'S 2 WITH THE CALL LIGHT AT HAND. THE DOOR IS OPEN AND NURSE IS AT THE DESK WHERE SHE CAN SEE PT.
[2016-10-04 06:57] LABS: BASOPHILS 0.3 % (0.0-2.0); EOSINOPHILS 0.7 % (0-7); HEMATOCRIT 30.4 % (36.0-48.0); HEMOGLOBIN 9.2 g/dL (12-16); IMMATURE GRANULOCYTES 3.1 % (0-5); MCH 27.5 pg (26.0-34.0); MCHC 30.3 g/dL (31.0-37.0); MONOCYTES 6.2 % (2-11); NEUTROPHILS 68.7 % (40-80); PLATELET COUNT 359 10x3/uL (130-400); RBC 3.34 10x6/uL (4.00-5.40); RDW 25.3 % (11.5-14.5); WBC 13.1 10x3/uL (4.8-10.8)
[2016-10-04 07:08] LABS: CALC OSMOLALITY 282 mosm/kg (275-300); CALCIUM 8.4 mg/dL (8.5-10.1); CARBON DIOXIDE 28.2 mmol/L (21.0-32.0); CHLORIDE - SERUM 106 mmol/L (98-107); CREATININE - SERUM 0.4 mg/dL (0.6-1.3); GLUCOSE 109 mg/dL (74-106); SODIUM 142 mmol/L (136-145); UREA NITROGEN 10 mg/dL (7-18); eGFR NON AFRICAN AMERICAN > 90 mL/min (90-120)
[2016-10-04 07:12] LABS: POTASSIUM - SERUM 2.5 mmol/L (3.5-5.1)
--- NOTE | 2016-10-04 07:35 | NUR ---
PATIENT RECEIVED ALERT IN MID ROGERS POSITION. RESPIRATIONS EVEN AND UNLABORED. SISTERS PRESENT AT BEDSIDE. KCL RIDER INITIATED PER PROTOCOL. INFUSING WITHOUT DIFFICULTY TO RIGHT PICC. C/O OF MUSCLE CRAMPS. DENIES FURTHER NEEDS. SIDE RAILS UP X2. BED IN LOW POSITION. CALL LIGHT IN REACH.
[2016-10-04 09:05] VITALS: BP 187/74
--- NOTE | 2016-10-04 09:43 | NUR ---
ALERT IN BED. REPOSITIONED FOR COMFORT. FAMILY PRESENT AT BEDSIDE. SCHEDULED MEDICATION ADMINISTERED. WELL TOLERATED. SIDE RAILS UP X3. BED IN LOW POSITION. CALL LIGHT IN REACH.
--- NOTE | 2016-10-04 11:23 | NUR ---
PATIENT ALERT IN BED. RESPIRATIONS EVEN AND UNLABORED. SCHEDULED MEDICATION ADMINISTERED. SIDE RAILS UP X3. BED IN LOW POSITION. CALL LIGHT IN REACH. BOX ALARM ON.
[2016-10-04 11:59] VITALS: BP 159/70
--- NOTE | 2016-10-04 14:15 | NUR ---
PATIENT REPOSITIONED IN BED. WELL TOLERATED. RIGHT PICC SALINE LOCKED. POTASSIUM RIDERS COMPLETE. POTASSIUM REDRAW ORDERED PER PROTOCOL. DENIES PAIN AND OTHER NEEDS. SIDE RAILS UP X3. BED IN LOW POSITION. CALL LIGHT IN REACH.
[2016-10-04 15:40] VITALS: BP 109/72
--- NOTE | 2016-10-04 17:43 | NUR ---
ORDER RECEIVED TO RESUME FLEXERIL ORDER. ADMINSITERED PER PRN ORDER. FAMILY AT BEDSIDE. SIDE RAILS UP X2. BED IN LOW POSITION. CALL LIGHT IN REACH.
--- NOTE | 2016-10-04 19:30 | NUR ---
REC'D PATIENT LYING IN BED. PATIENT STATED SHE WAS HAVING A PANIC ATTACT. STAYED WITH HER AND TALKED HER THROUGH IT. WANTED TO TALK TO HER , DOES NOT WANT TO BE IN THE HOSPITAL ANYMORE. DENIED PAIN AT THIS TIME. LUNG SOUNDS CLEAR. INTRUCTED TO CALL IF NEEDED ANYTHING. VERBALIZED UNDERSTANDING. BED LOW, LOCKED CALL LIGHT IN REACH. CHELSEA FAULKNER ALSO TOOK BP WAS 171/101 HR 106 WILL ADMINISTER BP MEDS PRESCRIB AND RECHECK.
[2016-10-04 20:00] VITALS: BP 171/101
--- NOTE | 2016-10-04 22:43 | NUR ---
PATIENT IS NOW RESTING COMFORTABLY IN BED. NO DISTRESS NOTED. DENIES PAIN AT THIS TIME. INSTRUCTED TO CALL IF NEEDED ANYTHING. VERBALIZED UNDERSTANDING. BED LOW, LOCKED CALL LIGHT IN REACH.
[2016-10-05] VITALS: BP 184/82
--- NOTE | 2016-10-05 02:47 | NUR ---
PATIENT IS RESTING IN BED. NO DISTRESS NOTED. DENIED FURTHER NEEDS AT THIS TIME. DENIED PAIN AT THIS TIME. INSTRUCTED TO CALL IF NEEDED ANYTHING. BED LOW, LOCKED, CALL LIGHT IN REACH.
[2016-10-05 04:00] VITALS: BP 171/84
--- NOTE | 2016-10-05 04:30 | NUR ---
JOVAN DAVIES AT BEDSIDE DRAWING BLOOD. PATIENT DENIES NEEDS AT THIS TIME. BED IN LOWEST POSITION AND CALL LIGHT WITHIN REACH. ENCOURAGED PATIENT TO CALL IF SHE HAS FURTHER NEEDS.
[2016-10-05 04:52] LABS: BASOPHILS 0.2 % (0.0-2.0); EOSINOPHILS 0.4 % (0-7); HEMOGLOBIN 9.9 g/dL (12-16); IMMATURE GRANULOCYTES 1.2 % (0-5); LYMPHOCYTES 17.4 % (15-50); MCH 28.2 pg (26.0-34.0); MCHC 30.9 g/dL (31.0-37.0); MCV 91.2 fL (80.0-100.0); MEAN PLATELET VOLUME 8.8 fL (7.4-10.4); MONOCYTES 6.7 % (2-11); NEUTROPHILS 74.1 % (40-80); PLATELET COUNT 319 10x3/uL (130-400); RBC 3.51 10x6/uL (4.00-5.40); RDW 25.2 % (11.5-14.5)
[2016-10-05 05:14] LABS: CALC OSMOLALITY 282 mosm/kg (275-300); CALCIUM 8.7 mg/dL (8.5-10.1); CARBON DIOXIDE 28.5 mmol/L (21.0-32.0); CHLORIDE - SERUM 107 mmol/L (98-107); CREATININE - SERUM 0.4 mg/dL (0.6-1.3); GLUCOSE 98 mg/dL (74-106); MAGNESIUM - SERUM 1.2 mg/dL (1.8-2.4); PHOSPHOROUS 2.8 mg/dL (2.5-4.9); SODIUM 143 mmol/L (136-145); UREA NITROGEN 8 mg/dL (7-18); eGFR NON AFRICAN AMERICAN > 90 mL/min (90-120)
[2016-10-05 05:24] LABS: POTASSIUM - SERUM 2.8 mmol/L (3.5-5.1)
--- NOTE | 2016-10-05 07:25 | NUR ---
PATIENT RECEIVED ALERT IN MID ROGERS POSITION. RESPIRATIONS EVEN AND UNLABORED. SIDE RAILS UP X2. BED IN LOW POSITION. CALL LIGHT IN REACH. AT BEDSIDE.
[2016-10-05 08:14] VITALS: BP 161/85
--- NOTE | 2016-10-05 08:19 | NUR ---
PATIENT ALERT IN BED WITH PRESENT. SCHEDULED MEDICATION ADMINISTERED. DENIES PAIN. SIDE RAILS UP X2. BED IN LOW POSITION. CALL LIGHT IN REACH. AT BEDSIDE.
--- NOTE | 2016-10-05 11:15 | NUR ---
PATIENT ALERT IN BED RESTING QUIETLY. RESPIRATIONS EVEN AND UNLABORED. SCHEDULED MEDICATION ADMINISTERED. DENIES PAIN AND OTHER NEEDS. SIDE RAILS UP X2. BED IN LOW POSITION. CALL LIGHT IN REACH.
[2016-10-05 12:44] VITALS: BP 154/74
--- NOTE | 2016-10-05 14:00 | NUR ---
PATIENT IN LOW ROGERS POSITION RESTING WITH EYES CLOSED. RESPIRATIONS EVEN AND UNLABORED. AT BEDSIDE. SIDE RAILS UP X2. BED IN LOW POSITION. CALL LIGHT IN REACH.
[2016-10-05 16:18] LABS: MAGNESIUM - SERUM 1.8 mg/dL (1.8-2.4)
[2016-10-05 16:27] VITALS: BP 126/71
--- NOTE | 2016-10-05 16:27 | NUR ---
PATIENT ALERT IN BED WITH AT BEDSIDE. RESPIRATIONS EVEN AND UNLABORED. SCHEDULED MEDICATION ADMINISTERED. DENIES NEEDS. SIDE RAILS UP X2. BED IN LOW POSITION. CALL LIGHT IN REACH.
--- NOTE | 2016-10-05 17:58 | NUR ---
PATIENT ALERT IN BED WITH FAMILY PRESENT. XANAX AND FLEXERIL ADMINISTERED PER PRN ORDER. NO FURTHER NEEDS VOICED. SIDE RAILS UP X2. BED IN LOW POSITION. CALL LIGHT IN REACH.
[2016-10-05 20:00] VITALS: BP 98/57
--- NOTE | 2016-10-05 20:00 | NUR ---
ASSESSMENT PER FLOWSHEET. PICC LINE PATENT RT UPPER ARM SALINE LOCKED. SPOUSE AT BEDSIDE. HOB UP 40 DEGREES. O2 ON 2L/M PER NC. REBOLLEDO TO BS DRAINAGE WITH DEMARIO COLORED URINE. PT ON FIRST STEP AIR BED MATTRESS.
--- NOTE | 2016-10-05 21:00 | NUR ---
MEDS GIVEN PER AUG. GIVEN IN APPLESAUCE AND PT DRANK APPLE JUICE.
[2016-10-06] VITALS: BP 156/69
--- NOTE | 2016-10-06 | NUR ---
TURNED TO LEFT SIDE. SR UP X2 CALL LIGHT WITHIN REACH BED ALARM BOX ON.
--- NOTE | 2016-10-06 02:00 | NUR ---
REPOSITIONED IN BED COMPLETE BED BATH GIVEN WITH LINENS CHANGED.
[2016-10-06 04:00] VITALS: BP 152/80
--- NOTE | 2016-10-06 04:18 | NUR ---
EYES CLOSED RESPIRATIONS WITH EASE AND UNLABORED.SPOUSE AT BEDSIDE.
[2016-10-06 06:11] LABS: BASOPHILS 0.1 % (0.0-2.0); EOSINOPHILS 0.3 % (0-7); HEMATOCRIT 30.6 % (36.0-48.0); HEMOGLOBIN 9.2 g/dL (12-16); LYMPHOCYTES 17.4 % (15-50); MCH 27.8 pg (26.0-34.0); MCHC 30.1 g/dL (31.0-37.0); MCV 92.4 fL (80.0-100.0); NEUTROPHILS 73.2 % (40-80); PLATELET COUNT 348 10x3/uL (130-400); RBC 3.31 10x6/uL (4.00-5.40); RDW 25.6 % (11.5-14.5); WBC 14.6 10x3/uL (4.8-10.8)
[2016-10-06 06:29] LABS: CALC OSMOLALITY 283 mosm/kg (275-300); CALCIUM 8.4 mg/dL (8.5-10.1); CARBON DIOXIDE 26.9 mmol/L (21.0-32.0); CHLORIDE - SERUM 107 mmol/L (98-107); CREATININE - SERUM 0.4 mg/dL (0.6-1.3); GLUCOSE 119 mg/dL (74-106); MAGNESIUM - SERUM 1.8 mg/dL (1.8-2.4); SODIUM 143 mmol/L (136-145); UREA NITROGEN 8 mg/dL (7-18); eGFR NON AFRICAN AMERICAN > 90 mL/min (90-120)
[2016-10-06 06:31] LABS: POTASSIUM - SERUM 3.2 mmol/L (3.5-5.1)
--- NOTE | 2016-10-06 07:00 | NUR ---
REPORT RECIEVED ASSUMED CARE. PATIENT IN BED WITH IV INTACT. NO COMPLAINTS. FAMILY AT BEDSIDE. CALL LIGHT WITHIN REACH.
--- NOTE | 2016-10-06 07:45 | NUR ---
PATIENT ASSESSMENT COMPLETE, VS STABLE. NO COMPLAINTS AT THIS TIME. REBOLLEDO INTACT. FOOT DROP BOOTS ON. PATIENT LAYING ON SIDE WITH HEELS FLOATING. CALL LIGHT WITHIN REACH.
[2016-10-06 08:26] VITALS: BP 164/63
[2016-10-06 11:39] VITALS: BP 135/57
--- NOTE | 2016-10-06 12:41 | NUR ---
OT NOTE: PT ALERT THIS AM; NO FAMILY IN ROOM AT THIS TIME; PT REPORTED THAT SHE WAS HAVING A PANIC ATTACK AND WAS INSTRUCTED ON BREATHING TECH..PT WAS DOING MUCH BETTER PHYSICALLY. SHE WAS ABLE TO MOVE FINGERS, HAND , WRIST , AND ELBOW ON L SIDE; ABLE TO SQUEEZE MY HAND ON RIGHT, HOWEVER, NO ACTIVE MOVEMENT IN REST OF UE; PT WAS CONFUSED AGAIN TO WHERE SHE WAS ( SHE THOUGH SHE WAS IN LR)..ALSO DISORIENTED TO TIME. REMAINS WITH PERIPHERAL VISION BUT APPEARS TO BE UNAWARE OF LACK OF MIDLINE VISION; PERFORMED A/AROM ON L UE; PROM TO R UE
--- NOTE | 2016-10-06 12:50 | NUR ---
PATIENT SITTING UP IN BED WITH NO IV INTACT. FAMILY AT BEDSIDE. CALL LIGHT WITHIN REACH.
[2016-10-06 15:26] VITALS: BP 130/60
--- NOTE | 2016-10-06 16:25 | NUR ---
PATIENT IN BED WITH IV INTACT. STATING SHE IS FEELING ANXIOUS. XANAX ALREADY GIVEN. FAMILY AT BEDSIDE. REQUESTS FLEXERIL AND SOMETHING TO HELP PATIENT SLEEP. EXPLAINED I WOULD HAVE TO CALL THE PHYSICIAN FOR SLEEP MED AND SHE WOULDNT GET IT UNTIL TONIGHT. VERBALIZED UNDERSTANDING. CALL LIGHT WITHIN REACH.
--- NOTE | 2016-10-06 18:50 | NUR ---
PATIENT IN BED WITH IV INTACT. NO COMPLAINTS AT THIS TIME. FAMILY AT BEDSIDE. CALL LIGHT WITHIN REACH.
[2016-10-06 20:00] VITALS: BP 138/70
--- NOTE | 2016-10-06 20:00 | NUR ---
ASSESSMENT PER FLOWSHEET. IV PATENT RT ARM PICC SALINE LOCK. PT ON FIRST STEP AIR MATTRESS. REBOLLEDO TO BEDSIDE DRAINAGE WITH DEMARIO COLORED URINE SPOUSE IN ROOM. HOB UP 40 DEGREES. O2 ON 2L/M PER NC. NO DISTRESS. SR UP X2 CALL LIGHT WITHIN REACH BOX ALARM ON. HEEL PROTECTORS ON BILATERAL FEET.
--- NOTE | 2016-10-06 21:30 | NUR ---
MEDS GIVEN PER AUG. VISTARIL PO GIVEN FOR SLEEP. SPOUSE AT BEDSIDE.
--- NOTE | 2016-10-06 23:00 | NUR ---
REPOSITIONED IN BED SR UP X2 CALL LIGHT WITHIN REACH. RRESTING AT THIS TIME.
[2016-10-07] VITALS: BP 164/76
--- NOTE | 2016-10-07 01:07 | NUR ---
EYES CLOSED RESPIRATIONS WITH EASE AND UNLABORED.
[2016-10-07 04:31] LABS: BASOPHILS 0.2 % (0.0-2.0); EOSINOPHILS 0.5 % (0-7); HEMATOCRIT 31.6 % (36.0-48.0); HEMOGLOBIN 9.6 g/dL (12-16); LYMPHOCYTES 18.8 % (15-50); MCHC 30.4 g/dL (31.0-37.0); MCV 92.1 fL (80.0-100.0); MEAN PLATELET VOLUME 8.8 fL (7.4-10.4); NEUTROPHILS 71.5 % (40-80); PLATELET COUNT 347 10x3/uL (130-400); RBC 3.43 10x6/uL (4.00-5.40); RDW 25.1 % (11.5-14.5); WBC 15.2 10x3/uL (4.8-10.8)
[2016-10-07 04:49] LABS: ALBUMIN 2.2 g/dL (3.4-5.0); ALKALINE PHOSPHATASE 88 U/L (46-116); ALT (SGPT) 45 U/L (10-68); CALC OSMOLALITY 284 mosm/kg (275-300); CALCIUM 8.9 mg/dL (8.5-10.1); CARBON DIOXIDE 32.2 mmol/L (21.0-32.0); CHLORIDE - SERUM 106 mmol/L (98-107); CREATININE - SERUM 0.4 mg/dL (0.6-1.3); GLUCOSE 111 mg/dL (74-106); POTASSIUM - SERUM 3.7 mmol/L (3.5-5.1); PROTEIN - SERUM 6.1 g/dL (6.4-8.2); SODIUM 143 mmol/L (136-145); UREA NITROGEN 11 mg/dL (7-18); eGFR NON AFRICAN AMERICAN > 90 mL/min (90-120)
--- NOTE | 2016-10-07 07:15 | NUR ---
REPORT RECEIVED FROM ELECTRICIAN APPRENTICE POWERHOUSE NURSE. CALL LIGHT IN REACH.
[2016-10-07 08:10] VITALS: BP 149/76
--- NOTE | 2016-10-07 08:42 | NUR ---
ASSESSMENT COMPLETED. NORCO AND XANAX PO WITH AM MEDS ADMINISTERED. REPOSITIONED FOR COMFORT. MARY MAT ALARM IS ON. RODOLFO APPLIED TO BUTTOCKS. CALL LIGHT IN REACH. WILL CONTINUE WITH PLAN OF CARE.
--- NOTE | 2016-10-07 10:29 | NUR ---
REPOSITIONED FOR COMFORT. CALL LIGHT IN REACH.
[2016-10-07 11:32] VITALS: BP 138/60
--- NOTE | 2016-10-07 12:21 | NUR ---
STATES PAIN IS STILL A 5. CARAFATE PO. CALL LIGHT IN REACH.
--- NOTE | 2016-10-07 13:06 | NUR ---
CM REASSESSMENT NOTE: CM CALLED [facility] (HERE IN [facility]) WITH REFERRAL AND LIAS[facility] ([facility]) IS COMING TO HOSPITAL TO SEE PATIENT TODAY. CM WILL CONTINUE TO FOLLOW PATIENT WITH D/C NEEDS AND PLANS.
--- NOTE | 2016-10-07 13:25 | NUR ---
NUTRITION MONITORING & EVAL CHART REVIEWED, PT VISIT. TOLERATING AHA DIET WITH 100% INTAKE RECENT MEALS. WILL CONTINUE TO PROVIDE DIET, MONITOR PO INTAKE. RD FOLLOWING
--- NOTE | 2016-10-07 14:05 | NUR ---
L-TACH WORKER HERE TO ASSESS PATIENT.
--- NOTE | 2016-10-07 14:25 | NUR ---
OT NOTE: LIMITED CHANGE FROM YESTERDAY; CONT TO MOVE L UE; PROM TO R UE; NO CHANGE IN COGNITIVE FUNCTION NOTED TODAY
--- NOTE | 2016-10-07 16:32 | NUR ---
RESTING WITH EYES CLOSED. RESP EVEN AND UNLABORED.
[2016-10-07 16:44] VITALS: BP 125/60
[2016-10-07 20:00] VITALS: BP 144/70
--- NOTE | 2016-10-07 20:00 | NUR ---
ASSESMENT PER FLOWSHEET. RT ARM FLACCID. ELEVATED ON PILLOW BOTH LOWER EXTREMITIES BRIDGED. WITH HEEL BOOTS ON. IV PATENT RT AC PICC SALINE LOCKED. BOX ALARM ON SR UP X3 CALL LIGHT WITHIN EACH. HOB UP 35 DEGREES. REBOLLEDO TO BS DRAINAGE WITH YELLOW UA.
--- NOTE | 2016-10-07 21:35 | NUR ---
MEDS GIVEN WITH APPLESAUCE AND APPLE JUICE. BACLOFEN GIVEN FOR MUSCLE SPASMS XANAX GIVEN PO FOR ANXIETY. TENDS TO GET TEARFUL AT TIMES. PT ON FIRST STEP AIR MATTRESS.
--- NOTE | 2016-10-07 22:00 | NUR ---
INC LARGE SOFT DARK BROWN STOOL. CLEANED AND DRIED WITH PARTIAL LINENS CHANGED REPOSITIONED IN BED.
[2016-10-08] VITALS: BP 138/72
--- NOTE | 2016-10-08 01:30 | NUR ---
REPOSITIONED IN BED HOB UP 30 DEGREES. O2 ON 2L/M PER NC.NO DISTRESS.
[2016-10-08 04:00] VITALS: BP 148/70
[2016-10-08 05:48] LABS: CALC OSMOLALITY 286 mosm/kg (275-300); CALCIUM 9.2 mg/dL (8.5-10.1); CARBON DIOXIDE 30.4 mmol/L (21.0-32.0); CHLORIDE - SERUM 104 mmol/L (98-107); CREATININE - SERUM 0.4 mg/dL (0.6-1.3); GLUCOSE 84 mg/dL (74-106); POTASSIUM - SERUM 3.5 mmol/L (3.5-5.1); SODIUM 144 mmol/L (136-145); eGFR NON AFRICAN AMERICAN > 90 mL/min (90-120)
[2016-10-08 05:51] LABS: UREA NITROGEN 14 mg/dL (7-18)
[2016-10-08 07:02] LABS: BASOPHILS 0.2 % (0.0-2.0); EOSINOPHILS 0.4 % (0-7); HEMATOCRIT 34.9 % (36.0-48.0); HEMOGLOBIN 10.5 g/dL (12-16); LYMPHOCYTES 14.9 % (15-50); MCH 27.9 pg (26.0-34.0); MCHC 30.1 g/dL (31.0-37.0); MCV 92.6 fL (80.0-100.0); MEAN PLATELET VOLUME 8.8 fL (7.4-10.4); MONOCYTES 8.9 % (2-11); NEUTROPHILS 74.6 % (40-80); PLATELET COUNT 376 10x3/uL (130-400); RBC 3.77 10x6/uL (4.00-5.40); RDW 24.5 % (11.5-14.5); WBC 18.7 10x3/uL (4.8-10.8)
--- NOTE | 2016-10-08 07:45 | NUR ---
AWAKE AND ALERT THIS MORNING. AT BEDSIDE. PLACED ON BEDPAN AT THIS TIME FOR BOWEL MOVEMENT. CLAY CARE PROVIDED POST BM AND PT POSITIONED ON BACK FOR BREAKFAST. DENIES PAIN AT THIS TIME. FOOT DROP BOOTS REMOVED AND SKIN INSPECTED. PICC LINE TO RIGHT UPPER ARM PATENT AND SALINE LOCKED. ASSESSMENT PERFORMED PER FLOWSHEET. CALL LIGHT IN REACH, WILL CONTINUE WITH PLAN OF CARE.
[2016-10-08 08:24] VITALS: BP 156/86
--- NOTE | 2016-10-08 09:49 | NUR ---
CM REASSESSMENT NOTE: UPDATE CLINICALS AND LAB SENT TO [facility] PER REQUEST (ISAIAH)
--- NOTE | 2016-10-08 10:00 | NUR ---
SCHEDULED MEDICATIONS ADMINISTERED PER ATTENDING PSYCHIATRIST AT THIS TIME. MEDICATIONS GIVEN CRUSHED IN PUDDING WITHOUT DIFFICULTY. CLAY CARE AND REBOLLEDO CARE PROVIDED. FOOT DROP BOOTS REMOVED AND SKIN EXAMINED. POSITIONED PT ON LEFT SIDE. ORAL CARE PROVIDED AND MOUTH MOISTURIZER APPLIED TO LIPS. REMAINS AT BEDSIDE. CALL LIGHT IN REACH AND BOX ALARM ON AND IN USE. WILL CONTINUE WITH PLAN OF CARE.
[2016-10-08 11:59] VITALS: BP 128/61
--- NOTE | 2016-10-08 14:54 | NUR ---
OT NOTE: PT DOING VERY WELL TODAY. SHE WAS ABLE TO ACTIVELY FLEX AND EXTEND FINGERS ON R HAND FOR 10 REPETITIONS. VERY MINIMAL WRIST FLEX ALSO NOTED TODAY. PERFORMED GENTLE MASSAGE TO UPPER TRAPS ON L SIDE AND ROTATED HEAD TOWARDS RIGHT SIDE. FOR THE FIRST TIME, PT WAS ABLE TO MAKE EYE CONTACT WITH ME; REPOSITIONED HEAD IN MORE FLEXED PATTERN AND PT WAS ABLE TO SEE THE TV. PT HAS BEEN DEMONSTRATING ONLY PERIPHERAL VISION, AND TODAY WAS THE FIRST TIME I HAVE SEEN MIDLINE VISION.. ALSO ABLE TO MAINTAIN FOR SEVERAL MIN WITHOUT CUEING.
[2016-10-08 16:12] VITALS: BP 147/72
--- NOTE | 2016-10-08 17:39 | NUR ---
OT NOTE: PT COMPLETED LUE AAROM FOR INCREASED I WITH ADLS. PT COMPLETED RUE PROM FOR INCREASED CIRCULATION AND FACILITATION OF AROM. THANK YOU, PAMELA MANE/El
[2016-10-08 20:00] VITALS: BP 139/59
--- NOTE | 2016-10-08 20:00 | NUR ---
ASSESSMENT PER FLOWSHEET. IV PATENT RT PICC LINE NS AT KVO 10 CC'S/HR. RT ARM REMAINS FLACCID NON PRODUCTIVE COUGH. O2 ON 2 L/M PER NC. REBOLLEDO TO BS DRAINAGE. PT ON FIRST STEP AIR MATTRESS. HOB UP 35 DEGREES. TALKATIVE.
--- NOTE | 2016-10-08 21:15 | NUR ---
MEDS PER MAR. SPOUSE AT BEDSIDE.
[2016-10-09] VITALS: BP 124/75
--- NOTE | 2016-10-09 | NUR ---
REPOSITIONED IN BED. SR UP X2 CALL LIGHT WITHIN REACH BOX ALARM ON ALARMS ACTIVATED.
--- NOTE | 2016-10-09 02:33 | NUR ---
EYES CLOSED RESPIRATIONS WITH EASE AND UNLABORED. SPOUSE WENT HOME MEDS GIVEN PER AUG.
[2016-10-09 03:00] VITALS: BP 154/70
[2016-10-09 05:43] LABS: BASOPHILS 0.2 % (0.0-2.0); EOSINOPHILS 0.4 % (0-7); HEMOGLOBIN 10.7 g/dL (12-16); IMMATURE GRANULOCYTES 1.5 % (0-5); MCH 28.2 pg (26.0-34.0); MCHC 30.6 g/dL (31.0-37.0); MCV 92.3 fL (80.0-100.0); MEAN PLATELET VOLUME 9.1 fL (7.4-10.4); MONOCYTES 9.4 % (2-11); NEUTROPHILS 68.5 % (40-80); PLATELET COUNT 361 10x3/uL (130-400); RBC 3.79 10x6/uL (4.00-5.40); RDW 24.5 % (11.5-14.5)
[2016-10-09 05:49] LABS: WBC 13.6 10x3/uL (4.8-10.8)
[2016-10-09 06:10] LABS: CALC OSMOLALITY 284 mosm/kg (275-300); CALCIUM 9.2 mg/dL (8.5-10.1); CARBON DIOXIDE 29.6 mmol/L (21.0-32.0); CHLORIDE - SERUM 103 mmol/L (98-107); CREATININE - SERUM 0.4 mg/dL (0.6-1.3); GLUCOSE 101 mg/dL (74-106); POTASSIUM - SERUM 3.7 mmol/L (3.5-5.1); PRO BNP 113 pg/mL (0-125); SODIUM 142 mmol/L (136-145); UREA NITROGEN 17 mg/dL (7-18); VANCOMYCIN - TROUGH 22.4 ug/mL (10.0-20.0); eGFR NON AFRICAN AMERICAN > 90 mL/min (90-120)
--- NOTE | 2016-10-09 07:00 | NUR ---
REPORT RECEIVED FROM SURVEYOR'S ASSISTANT NURSE. CALL LIGHT IN REACH.
--- NOTE | 2016-10-09 08:05 | NUR ---
ASSESSMENT COMPLETED. BOX ALARM ON. CALL LIGHT IN REACH. IN ROOM. WILL CONTINUE WITH PLAN OF CARE.
[2016-10-09 09:08] VITALS: BP 124/54
--- NOTE | 2016-10-09 10:49 | NUR ---
NORCO AND XANAX PO WITH AM MEDS ADMINISTERED. CALL LIGHT IN REACH.
[2016-10-09 12:55] VITALS: BP 114/45
--- NOTE | 2016-10-09 13:16 | NUR ---
MARCELL GOLDENPB. SULEMAN PO. CARAFATE PO. SISTER IN ROOM. CALL LIGHT IN REACH.
--- NOTE | 2016-10-09 13:20 | NUR ---
OT NOTE: PT REMAINS ALERT TODAY; LESS LABILITY NOTED TODAY; UNABLE TO ELICIT ACTIVE MOVEMENT IN R HAND , SHE WAS PREVIOUSLY ABLE TO DO YESTERDAY. TODAY, PT WAS UNABLE TO DISTINGUISH ANY AREAS OF SENSATION. ( WHEN ASKED WHERE I WAS TOUCHING, WHETHER IT BE UE OR LE, PT WAS UNABLE TO TELL TODAY). HOWEVER, ALERT AND CONVERSANT TODAY, WHICH IS A BIG IMPROVEMENT FROM LAST WEEK
--- NOTE | 2016-10-09 14:35 | NUR ---
NO NEEDS VOICED AT THIS TIME. CALL LIGHT IN REACH.
--- NOTE | 2016-10-09 16:25 | NUR ---
IN CT SCAN AT THIS TIME. WILL MONITOR PT WHEN SHE RETURNS TO [id number].
[2016-10-09 16:59] VITALS: BP 158/92
--- NOTE | 2016-10-09 17:55 | NUR ---
AFTERNOON MEDS ADMINISTERED. CALL LIGHT IN REACH.
--- NOTE | 2016-10-09 18:55 | NUR ---
NO CHANGES IN INITIAL ASSESSMENT. CALL LIGHT IN REACH. BOX ALARM ON. WILL CONTINUE WITH PLAN OF CARE.
--- NOTE | 2016-10-09 19:45 | NUR ---
PT LYING IN BED AWAKE, ASSESSMENT COMPLETED, NO ACUTE DISTRESS NOTED, REBOLLEDO DRAINING TO GRAVITY, BOOTS TO BILAT FEET, FALL PRECAUTIONS IN PLACE, SPOUSE AT BEDSIDE, CL IN REACH, WILL MONITOR
[2016-10-09 20:00] VITALS: BP 110/59
--- NOTE | 2016-10-09 20:42 | NUR ---
MEDS GIVEN PER MAR, BETTYE WELL, DENIES NEEDS AT THIS TIME, AT BEDSIDE, CL IN REACH
--- NOTE | 2016-10-09 22:18 | NUR ---
PRN XANAX GIVEN FOR ANXIETY, BETTYE WELL, FAMILY IN ROOM, CL IN REACH
[2016-10-10] VITALS: BP 125/70
--- NOTE | 2016-10-10 00:29 | NUR ---
IV VANC HUNG PER ORDER, PT REPOSITIONED IN BED, BETTYE WELL, WILL CONTINUE TO MONITOR
--- NOTE | 2016-10-10 01:44 | NUR ---
RESTING WITH EYES CLOSED, RESP WITH EASE, NO DISTRESS NOTED, SAFETY PRECAUTIONS IN PLACE, CL IN REACH
[2016-10-10 04:00] VITALS: BP 146/83
--- NOTE | 2016-10-10 04:52 | NUR ---
PRN XANAX GIVEN PER MAR FOR ANXIETY, BLOOD DRAWN FOR ORDERED LABS, BOTH LUMENS FLUSHED, BETTYE WELL
--- NOTE | 2016-10-10 06:02 | NUR ---
MEDS GIVEN PER MAR, BETTYE WELL, STATLOCK FOR AMAURY CHANGED DUE TO EDGES COMING LOOSE AND ROLLING, SAFETY MEASURES IN PLACE, CL IN REACH
[2016-10-10 06:21] LABS: BASOPHILS 0.2 % (0.0-2.0); EOSINOPHILS 0.4 % (0-7); HEMATOCRIT 32.7 % (36.0-48.0); IMMATURE GRANULOCYTES 3.1 % (0-5); LYMPHOCYTES 21.6 % (15-50); MCH 28.2 pg (26.0-34.0); MCHC 30.6 g/dL (31.0-37.0); MCV 92.4 fL (80.0-100.0); MEAN PLATELET VOLUME 9.1 fL (7.4-10.4); NEUTROPHILS 64.7 % (40-80); PLATELET COUNT 329 10x3/uL (130-400); RBC 3.54 10x6/uL (4.00-5.40); RDW 24.1 % (11.5-14.5); WBC 13.7 10x3/uL (4.8-10.8)
[2016-10-10 06:41] LABS: CALC OSMOLALITY 291 mosm/kg (275-300); CARBON DIOXIDE 30.3 mmol/L (21.0-32.0); CHLORIDE - SERUM 106 mmol/L (98-107); CREATININE - SERUM 0.5 mg/dL (0.6-1.3); GLUCOSE 89 mg/dL (74-106); MAGNESIUM - SERUM 1.5 mg/dL (1.8-2.4); POTASSIUM - SERUM 3.2 mmol/L (3.5-5.1); SODIUM 146 mmol/L (136-145); UREA NITROGEN 19 mg/dL (7-18); eGFR NON AFRICAN AMERICAN > 90 mL/min (90-120)
--- NOTE | 2016-10-10 07:05 | NUR ---
REPORT RECEIVED FROM SOLUTIONS ENGINEER NURSE. CALL LIGHT IN REACH.
[2016-10-10 07:52] VITALS: BP 146/73
--- NOTE | 2016-10-10 09:00 | NUR ---
ASSESSMENT COMPLETED. CALL LIGHT IN REACH. BOX ALARM ON. WILL CONTINUE WITH PLAN OF CARE.
--- NOTE | 2016-10-10 11:24 | NUR ---
XANAX AND NORCO PO WITH AM MEDS ADMINISTERED. BLOOD DRAWN FROM PICC LINE FOR VANC TROUGH. CALL LIGHT IN REACH.
--- NOTE | 2016-10-10 11:43 | NUR ---
OT NOTE: PT MORE LETHARGIC TODAY; PERFORMED PROM TO R UE, UNABLE TO ILLICIT ACTIVE FINGER FLEX/EXT IN R HAND, SHE HAD DONE SEVERAL DAYS AGO. PROM WITH INSTRUCTION FOR L UE. PT REMAINS TEARFUL DURING CONVERSATION. PERFORMED MASSAGE TO L AREA OF NECK TO PREVENT CONTRACTURE ON THAT SIDE. UNABLE TO GET EYES TO MIDLINE OR ACTIVELY MOVE EYES IN ALL DIRECTIONS
[2016-10-10 12:08] VITALS: BP 138/77
[2016-10-10 12:35] LABS: POTASSIUM - SERUM 3.4 mmol/L (3.5-5.1); VANCOMYCIN - TROUGH 18.9 ug/mL (10.0-20.0)
--- NOTE | 2016-10-10 13:00 | NUR ---
PATIENT IN MID ROGERS POSITION RESTING WITH EYES CLOSED. RESPIRATIONS EVEN AND UNLABORED. SIDE RAILS UP X2. BED IN LOW POSITION. CALL LIGHT IN REACH.
--- NOTE | 2016-10-10 14:11 | NUR ---
VANC IS JUST NOW BEING AVAILABLE FROM PHARMACY. BACLOFEN AND APRESOLINE PO. CALL LIGHT IN REACH.
[2016-10-10 14:54] VITALS: BP 109/76
--- NOTE | 2016-10-10 16:57 | NUR ---
SISTER IN ROOM AT THIS TIME. PATIENT WITH NO DISTRESS NOTED AT THIS TIME.
--- NOTE | 2016-10-10 17:00 | NUR ---
OT NOTE: PT COMPLETED BUE PROM TO FACILITATE FUNCTIONAL RETURN. THANK YOU, PAMELA ROSARIO/El
--- NOTE | 2016-10-10 18:52 | NUR ---
NO CHANGES IN INITIAL ASSESSMENT. CALL LIGHT IN REACH. BOX ALARM ON. WILL CONTINUE WITH PLAN OF CARE.
--- NOTE | 2016-10-10 19:30 | NUR ---
LYING IN BED VISITING WITH , ASSESSMENT COMPLETED, NO ACUTE DISTRESS NOTED, REBOLLEDO DRAINING TO GRAVITY, FOOT DROP BOOTS AND NC IN PLACE, SR'S UP, CL IN REACH, WILL MONITOR
[2016-10-10 20:00] VITALS: BP 113/86
--- NOTE | 2016-10-10 20:55 | NUR ---
MEDS GIVEN PER MAR, BETTYE WELL, FAMILY IN ROOM, WILL MONITOR
--- NOTE | 2016-10-10 22:21 | NUR ---
PRN ANXIETY MEDS GIVEN PER EVELIN, BETTYE WELL, FAMILY IN ROOM, CL IN REACH
[2016-10-11] VITALS: BP 113/57
--- NOTE | 2016-10-11 00:49 | NUR ---
LYING IN BED RESTING ON AND OFF, VISITOR IN ROOM, SAFETY MEASURES IN PLACE, CL IN REACH
--- NOTE | 2016-10-11 01:23 | NUR ---
PRN PAIN MED GIVEN FOR C/O LEG PAIN ALONG WITH SCHEDULED AB, BETTYE WELL, SAFETY MEASURES IN PLACE, VISITOR IN ROOM, CL IN REACH
--- NOTE | 2016-10-11 03:25 | NUR ---
RESTING WITH EYES CLOSED, SOME RESTLESSNESS BUT NO DISTRESS NOTED, C/O ITCHING TO CLAY AREA, CLEANSED AND REPOSITIONED, BETTYE WELL, SAFETY MEASURES IN PLACE
[2016-10-11 04:00] VITALS: BP 151/61
[2016-10-11 04:58] LABS: BASOPHILS 0.8 % (0-2); EOSINOPHILS 0.8 % (0-7); HEMATOCRIT 34.9 % (36.0-48.0); HEMOGLOBIN 10.5 g/dL (12-16); IMMATURE GRANULOCYTES 4.9 % (0-5); LYMPHOCYTES 23.1 % (15-50); MCH 27.9 pg (26.0-34.0); MCHC 30.1 g/dL (31.0-37.0); MCV 92.8 fL (80.0-100.0); MEAN PLATELET VOLUME 8.8 fL (7.4-10.4); MONOCYTES 10.4 % (2-11); PLATELET COUNT 302 10x3/uL (130-400); RBC 3.76 10x6/uL (4.00-5.40); RDW 24.1 % (11.5-14.5); WBC 14.3 10x3/uL (4.8-10.8)
[2016-10-11 05:27] LABS: ALBUMIN 2.4 g/dL (3.4-5.0); ALKALINE PHOSPHATASE 92 U/L (46-116); ALT (SGPT) 103 U/L (10-68); CALC OSMOLALITY 283 mosm/kg (275-300); CALCIUM 9.2 mg/dL (8.5-10.1); CARBON DIOXIDE 29.1 mmol/L (21.0-32.0); CHLORIDE - SERUM 104 mmol/L (98-107); CREATININE - SERUM 0.5 mg/dL (0.6-1.3); GLUCOSE 98 mg/dL (74-106); MAGNESIUM - SERUM 1.5 mg/dL (1.8-2.4); POTASSIUM - SERUM 3.7 mmol/L (3.5-5.1); PROTEIN - SERUM 6.6 g/dL (6.4-8.2); SODIUM 141 mmol/L (136-145); UREA NITROGEN 22 mg/dL (7-18); eGFR NON AFRICAN AMERICAN > 90 mL/min (90-120)
--- NOTE | 2016-10-11 05:38 | NUR ---
PRN XANAX GIVEN FOR ANXIETY, BETTYE WELL, FAMILY IN ROOM, CL IN REACH
--- NOTE | 2016-10-11 06:06 | NUR ---
MEDS GIVEN PER MAR, PT REPOSITIONED, BETTYE WELL, FAMILY IN ROOM
--- NOTE | 2016-10-11 07:30 | NUR ---
PT AOX4 RESP EVEN AND NONLABORED PT DENIES NEEDS AT THIS TIME RIGHT ARM PICC PATENT AND INTACT BED AT LOWEST SETTING CALL LIGHT WITHIN REACH WILL CONTINUE TO MONITOR FAMILY AT THE BEDSIDE
[2016-10-11 08:17] VITALS: BP 172/78
[2016-10-11 11:45] VITALS: BP 140/68
[2016-10-11 15:35] VITALS: BP 119/62
--- NOTE | 2016-10-11 19:30 | NUR ---
ASSESSMENT COMPLETED, NO ACUTE DISTRESS NOTED, AT BEDSIDE, REBOLLEDO DRAINING TO GRAVITY, SAFETY MEASURES IN PLACE, CL IN REACH, WILL MONITOR
--- NOTE | 2016-10-11 19:46 | NUR ---
PT VOICED CONCERNS THAT TXS MAKE PT NERVOUS. D/W AND NURSE. WILL SKIP TX TONIGHT AND SEE IF SHAKINESS/NERVOUSNESS IMPROVES. ASKS IF WE MIGHT CHANGE RESP MEDS AND WILL D/W DR MONTES IN AM.
[2016-10-11 20:00] VITALS: BP 150/76
--- NOTE | 2016-10-11 21:53 | NUR ---
MEDS GIVEN PER MAR, BETTYE WELL, REPOSITIONED AND CLEANED FROM BM, SPOUSE IN ROOM, CL IN REACH
--- NOTE | 2016-10-11 23:52 | NUR ---
RESTING WITH EYES CLOSED, NO DISTRES NOTED, IV VANC HUNG PER MAR, BETTYE WELL, SAFETY MEASURES IN PLACE, CL IN REACH
--- NOTE | 2016-10-12 01:17 | NUR ---
IV AB'S HUNG AND PRN PAIN MED GIVEN, PT REPOSITIONED, BETTYE WELL, WILL CONTINUE TO MONITOR
--- NOTE | 2016-10-12 03:18 | NUR ---
RESTING WITH EYES CLOSED, RESP WITH EASE, NO ACUTE DISTRESS NOTED, SAFETY MEASURES IN PLACE, CL IN REACH
[2016-10-12 04:00] VITALS: BP 155/68
[2016-10-12 05:51] LABS: BASOPHILS 0.3 % (0-2); EOSINOPHILS 0.7 % (0-7); HEMATOCRIT 34.5 % (36.0-48.0); HEMOGLOBIN 10.4 g/dL (12-16); IMMATURE GRANULOCYTES 5.1 % (0-5); LYMPHOCYTES 26.4 % (15-50); MCHC 30.1 g/dL (31.0-37.0); MCV 92.7 fL (80.0-100.0); MONOCYTES 11.7 % (2-11); NEUTROPHILS 55.8 % (40-80); PLATELET COUNT 305 10x3/uL (130-400); RBC 3.72 10x6/uL (4.00-5.40); RDW 24.5 % (11.5-14.5); WBC 11.8 10x3/uL (4.8-10.8)
--- NOTE | 2016-10-12 05:59 | NUR ---
ROUTINE MEDS GIVEN PER MAR ALONG WITH PRN PAIN AND ANXIETY MED, BETTYE WELL, SAFETY MEASURES IN PLACE, CL IN REACH
[2016-10-12 06:20] LABS: ALBUMIN 2.5 g/dL (3.4-5.0); ALKALINE PHOSPHATASE 92 U/L (46-116); ALT (SGPT) 104 U/L (10-68); BILIRUBIN - TOTAL 0.19 mg/dL (0.2-1.3); CALC OSMOLALITY 289 mosm/kg (275-300); CALCIUM 9.3 mg/dL (8.5-10.1); CARBON DIOXIDE 28.4 mmol/L (21.0-32.0); CHLORIDE - SERUM 106 mmol/L (98-107); CREATININE - SERUM 0.5 mg/dL (0.6-1.3); GLUCOSE 93 mg/dL (74-106); POTASSIUM - SERUM 3.8 mmol/L (3.5-5.1); PROTEIN - SERUM 6.5 g/dL (6.4-8.2); SODIUM 144 mmol/L (136-145); UREA NITROGEN 22 mg/dL (7-18); eGFR NON AFRICAN AMERICAN > 90 mL/min (90-120)
[2016-10-12 08:55] VITALS: BP 140/69
--- NOTE | 2016-10-12 09:01 | NUR ---
PT AOX4 RESP EVEN AND NONLABORED IV TO RIGHT PICC PATENT AND INTACT PT DENIES NEEDS AT THIS TIME SRX2 CALL LIGHT WITHIN REACH FAMILY AT BEDSIDE BED AT LOWEST SETTING WILL CONTINUE TO MONITOR
[2016-10-12 12:48] VITALS: BP 104/58
[2016-10-12 14:09] LABS: ACID FAST CULTURE Negative (()); ACID FAST SMEAR Negative (())
--- NOTE | 2016-10-12 16:32 | NUR ---
DR KLINE CALLED FOR PT FAMILY FOR PT. WITH TARDIVE DISKENSIA AND DR STATES NO NEW CHANGES AT THIS TIME
[2016-10-12 17:35] VITALS: BP 138/74
--- NOTE | 2016-10-12 18:47 | NUR ---
PT UNABLE TO DRINK FROM A STRAW AT THIS TIME. RESPONDS APPROPRIATELY VERBALLY
[2016-10-12 20:00] VITALS: BP 109/62
[2016-10-13] VITALS: BP 143/72
--- NOTE | 2016-10-13 02:00 | NUR ---
PT IN BED WITH NO DISTRESS. RESPIRATIONS EVEN AND UNLABORED. SIDE RAILS X 2. BED LOW. CALL LIGHT IN REACH.
[2016-10-13 04:00] VITALS: BP 133/70
--- NOTE | 2016-10-13 08:10 | NUR ---
PATIENT REPOSITIONED ON TO HER LEFT SIDE AND POSITIONED WITH PILLOWS FOR COMFORT. REBOLLEDO CATHETER IS PATENT TO THE BEDISDE COLLECTION BAG. URINE IS YELLOW/CLOUDY. SISTER AND NEICE ARE AT THE BEDSIDE. PATEINT IS VERBAL TO SOME QUESTIONS AND FOLLOWED DIRECTIONS TO DEEP BREATHE AND SQUEEZE MY HAND WITH HER LEFT HAND. SHE IS ABLE TO MOVE THAT ARM, OTHER EXTREMITIES ARE FLACCID. SHE IS WEARING HER HEEL PROTECTORS ON BLE. 1ST STEP OVERLAY IS INFLATED. HOB IS UP 60 DEGREES. IVF SL. CALZADA REMAINS UNDER DROPLET PRECAUTION.
[2016-10-13 08:33] VITALS: BP 138/72
--- NOTE | 2016-10-13 08:58 | NUR ---
CM REASSESSMENT NOTE: CLINICAL UPDATE SENT TO [facility] (PAULA)
--- NOTE | 2016-10-13 10:40 | NUR ---
REPOSITIONED PATIENT ONTO HER BACK AND SAT HER UP IN SEMIFOWLERS TO GIVE HER ORAL MEDICATION. SHE TOOK HER PILLS CRUSHED IN VANILLA PUDDING WITH GREAT DELAY AND SOME DIFFICULTY. REQUIRED CONTINUED ENCOURAGEMENT TO SWALLOW, SHE WAS HOLDING IT IN HER LEFT CHEEK. SHE TOOK A SINGLE 100MG DOSE OF THE LIQUID DILANTIN AND HELD IT FOR SOME TIME BEFORE SWALLOWING IT AND APPEARED TO FALL ASLEEP. WILL WITHHOLD ANY FURTHER MEDICATIONS ORALLY AT THIS TIME.
--- NOTE | 2016-10-13 11:10 | NUR ---
HAVE SPOKEN WITH DR. KLINE AND DR. LAUREANO TO REPORT THE PATEINT'S HYPOTENSION AND REPEATITIVE NODDING OF HEAD TO THE LEFT SIDE AND FLAPPING OF THE LEFT HAND. EXPLAINED THAT IT WAS AGAINST MY JUDGEMENT TO GIVE THE PATIENT ANY FURTHER ORAL MEDICATIONS AT THIS TIME. IV ORDERS RECEIVED FOR DILANTIN PER DR. KLINE. REPORTED TO DR. LAUREANO THAT I HELD HER B/P MEDICATIONS, LASIX AND POTASSIUM. HE ORDERED A 50CC NS FLUID BOLUS.
--- NOTE | 2016-10-13 11:30 | NUR ---
PATIENT POSITIONED ONTO HER RIGHT SIDE AND POSITIONED FOR COMFORT WITH PILLOWS. REQUESTED FOLDER TAPER OPERATOR OVERAGE SHORTAGE AND DAMAGE CLERK, RAYSA VILCHIS RN TO ASSESS HER SHE IS FAMILIAR WITH HER CASE. SHE CONFIRMS THAT THE PATIENT'S INTERMITTENT LETHARGY HAS BEEN NORMAL FOR HER. PATIENT WILL ANSWER SOME QUESTIONS BUT ACTS LIKE SHE IS TOO TIRED TO RESPOND TO MANY QUESTIONS. NS BOLUS IS INFUSING. HAVE GIVEN HER IV DILANTIN PER THE PICC LINE OVER 5 MINUTES.
--- NOTE | 2016-10-13 12:15 | NUR ---
HELD HER CARAFATE, PATIENT IS RESTING QUIETLY WITH EYES CLOSED. B/P IMPROVED TO 117/56. PULSE RATE 97. 94% O2 SAT.
--- NOTE | 2016-10-13 12:16 | NUR ---
CM REASSESSMENT NOTE: [facility] ([facility]) CAME BY AND THEY HAVE DENIED PATIENT. [facility] STATED (TO SUPERVISOR TOWER) THEIR PHYSICIANS THINKS PATIENT NEEDS A HIGER LEVEL OF CARE. CM WILL CALL DR. LAUREANO REGARDING THE REFUSAL OF PATIENT.
[2016-10-13 13:11] VITALS: BP 108/49
--- NOTE | 2016-10-13 13:24 | NUR ---
CM REASSESSMENT NOTE: JEAN CLAUDE SPOKE WITH PATIENTS SISTER AND SPOUSE REGARDING PATIENTS DENIAL. JEAN CLAUDE SPOKE WITH DR. LAUREANO REGARDING THE DENIAL AND HE STATED HE WAS KEEPING HER HERE FOR FURTHER TREATMENT WITH POSSIBLE PLACEMENT AT A LATER DATE.
--- NOTE | 2016-10-13 14:30 | NUR ---
PATIENT MORE ALERT, SITTING UP IN THE BED, HOLDING HEAD ERECT. EYES ARE OPEN BUT SHE DOESN'T MAKE EYE CONTACT. SISTER STATES THAT THE PATIETN C/O NAUSEA SO SE SAT HER UPRIGHT. DILAUDID GIVEN. PATIENT CONTINUES TO C/O HEADACHE. SHE APPEARED TO SAY 10 WHEN I ASKED HER PAIN LEVEL ON THE SCALE OF 1-10.
--- NOTE | 2016-10-13 14:40 | NUR ---
OT NOTE: PT WITH DECREASED ALERTNESS TODAY; DIFFICULT TO AROUSE; UNABLE TO FOLLOW SIMPLE COMMANDS. PERFORMED PROM TO B UES; REPOSITIONED PT HER NECK WAS IN EXTENDED POSITION. PT WAS NON VERBAL DURING TMT WITH EYES PARTIALLY CLOSED;
[2016-10-13 16:14] VITALS: BP 112/54
[2016-10-13 19:00] VITALS: BP 126/76
--- NOTE | 2016-10-13 20:00 | NUR ---
ASSESSMENT PER FLOWSHEET. IV PATENT RT ARM PICC LINE SALINE LOCKED. PT ON FIRST STEP AIR BED. SR UP X2 CALL LIGHT WITHIN REACH SISTER AT BEDSIDE. BOX ALARM ON. DOOR OPENED. HEEL BOOTS ON. REBOLLEDO TO BS DRAINAGE WITH DEMARIO COLORED URINE. HOB UP 40 DEGREES.
--- NOTE | 2016-10-13 21:30 | NUR ---
MEDS GIVEN CRUSHED IN APPLESAUCE. B/P MEDS HELD B/P AT 124/60.
[2016-10-14] VITALS: BP 132/71
--- NOTE | 2016-10-14 00:02 | NUR ---
PT TEARFUL RESTLESS. XANAX 1MG PO CRUSHED IN APPLESAUCE.
--- NOTE | 2016-10-14 01:31 | NUR ---
PT MOANING LOUDLY AND C/O HEAD HURTING. DILAUDID 1MG IVP GIVEN FOR PAIN CONTROL. REPOSITIONED IN BED.
--- NOTE | 2016-10-14 03:32 | NUR ---
EYES CLOSED RESPIRATIONS WITH EASE AND UNLABORED.O2 AT 2L/M PER NC.
[2016-10-14 04:00] VITALS: BP 167/82
[2016-10-14 06:10] LABS: BASOPHILS 0.3 % (0-2); HEMATOCRIT 33.2 % (36.0-48.0); HEMOGLOBIN 10.1 g/dL (12-16); IMMATURE GRANULOCYTES 2.1 % (0-5); LYMPHOCYTES 27.3 % (15-50); MCHC 30.4 g/dL (31.0-37.0); MEAN PLATELET VOLUME 9.1 fL (7.4-10.4); MONOCYTES 10.8 % (2-11); NEUTROPHILS 58.5 % (40-80); RBC 3.61 10x6/uL (4.00-5.40); RDW 24.1 % (11.5-14.5); WBC 11.4 10x3/uL (4.8-10.8)
[2016-10-14 06:13] LABS: PLATELET COUNT 209 10x3/uL (130-400)
[2016-10-14 06:17] LABS: CALC OSMOLALITY 290 mosm/kg (275-300); CALCIUM 9.5 mg/dL (8.5-10.1); CARBON DIOXIDE 24.6 mmol/L (21.0-32.0); CHLORIDE - SERUM 109 mmol/L (98-107); CREATININE - SERUM 0.4 mg/dL (0.6-1.3); GLUCOSE 87 mg/dL (74-106); MAGNESIUM - SERUM 1.8 mg/dL (1.8-2.4); PHENYTOIN (DILANTIN) 11.8 ug/mL (10.0-20.0); POTASSIUM - SERUM 4.3 mmol/L (3.5-5.1); SODIUM 145 mmol/L (136-145); UREA NITROGEN 22 mg/dL (7-18); VANCOMYCIN - RANDOM 18.7 ug/mL (10.0-20.0); eGFR NON AFRICAN AMERICAN > 90 mL/min (90-120)
[2016-10-14 09:03] VITALS: BP 144/87
--- NOTE | 2016-10-14 11:20 | NUR ---
SCHEDULED MEDICATIONS GIVEN CRUSHED IN APPLE SAUCE AT THIS TIME WITHOUT DIFFICULTY. LIQUID MEDICATIONS TAKEN WITHOUT DIFFICULTY WELL. ASSESSMENT PERFORMED PER FLOWSHEET. REMAINS IN DROPLET ISOLATION. AT BEDSIDE. DENIES FURTHER NEEDS AT THIS TIME. WILL CONTINUE WITH PLAN OF CARE.
[2016-10-14 12:16] VITALS: BP 134/65
--- NOTE | 2016-10-14 12:21 | NUR ---
NUTRITION MONITORING & EVAL CHART REVIEWED, PT VISIT. FAMILY REPORTS PT WITH "VERY GOOD" PO INTAKE AT BREAKFAST. WILL CONTINUE TO PROVIDE AHA DIET. MONITOR PO INTAKE. RD FOLLOWING
--- NOTE | 2016-10-14 14:20 | NUR ---
Red lumen on double lumen PICC not infusing, unable to aspirate or flush. Order obtained for cathflo. Cathflo instilled according to policy, 2 mg. Reevaluated in 30 minutes, unable to draw blood. Will reassess at 1600. Trang Gonsales RN
[2016-10-14 14:58] VITALS: BP 128/67
--- NOTE | 2016-10-14 15:20 | NUR ---
PT TRANSFERRED TO [facility] BED AT THIS TIME PER DR KLINE'S ORDERS. WEIGHT IS 187.3 POUNDS. INCONTINENCE CARE PROVIDED FOR INCONTINENT EPISODE OF STOOL. REBOLLEDO CARE PROVIDED. DR KLINE CALLED WITH WEIGHT AND TELEPHONE ORDER GIVEN FOR PROGRAF 10MG IV NOW AND THEN PROGRAF 10MG IV DAILY STARTING 10/15/16. CALLED SHIRLEY IN PHARMACY WITH THIS ORDER. SHE SAID SHE WILL GET IT PUT IN THE PATIENT'S PROFILE.
--- NOTE | 2016-10-14 15:30 | NUR ---
NOTIFIED DR COX'S NURSE REGARDING PT COMPLAINING OF URETHRAL PAIN AND BURNING. SHE SAID SHE WOULD CALL ME BACK ONCE SHE SPOKE WITH HIM.
--- NOTE | 2016-10-14 16:00 | NUR ---
ORDER FOR UA AND URINE CULTURE OBTAINED PER ORDER FROM DR LAUREANO. WILL OBTAIN PER REBOLLEDO SAMPLE PORT.
--- NOTE | 2016-10-14 16:15 | NUR ---
PRN DILAUDID 2MG ADMINISTERED AT TIME PER ORDER FOR PAIN. PT TRANSFERRING TO MRI VIA MRI TABLE AND PT WANTED SOMETHING FOR PAIN BEFORE TRAVEL. SISTER REMAINS AT PT'S SIDE.
--- NOTE | 2016-10-14 16:17 | NUR ---
OT NOTE: PT WAS MORE ALERT IN AM, HOWEVER, IN PM, PT WAS MORE LABILE. SISTER REPORTED THAT PT HAD A UTI. PERFORMED EXTENSIVE BED MOB WITH MAX ASSIST; ROM EXS , BOTH ACTIVE AND PASSIVE. PT UNABLE TO MOVE R HAND TODAY, BUT DID WELL WITH L HAND. SISTER WANTED TO KNOW WHEN WE WOULD BE GETTING PT UP INTO CHAIR, I TALKED ABOUT IT LAST WEEK WHEN SHE WAS DOING WELL. HOWEVER, EXPLAINED TO SISTER THAT IF SHE WAS DOING BETTER BY END OF THIS WEEK, WE WOULD SEE HOW SHE WOULD DO SITTING UP..FIRST ON EDGE OF BED , THEN IN CHAIR. WE WILL SEE HOW SHE PROGRESSES
--- NOTE | 2016-10-14 20:00 | NUR ---
ASSESSMENT PER FLOWSHEET. FAMILY IN ROOM. PT ON FIRST STEP BED SR UP X2 CALL LIGHT WITHIN REACH BA BOX ON O2 AT 2L/M PER NC. HOB UP 35 DEGREES. REBOLLEDO TO BS DRAINAGE CLAMPED FOR UA SPECIMEN. RT ARM FLACCID LEGS WITH MODERATE WEAKNESS. LEFT ARM WITH TREMORS. IV PATENT RT PICC LINE ANTIBIOTIC INFUSING AT 61.2CC'S/HR. SITE CLEAR. PT REMAINS RESTLESS.
[2016-10-14 21:19] VITALS: BP 154/82
--- NOTE | 2016-10-14 21:30 | NUR ---
MEDS GIVEN PER MAR. BENADRYL GIVEN FOR REST. PT MOANS AND CRIES. ABDOMEN DISTENDED. BS PRESENT. PLACED ON BEDPAN. SMALL AMOUNT LIQUID STOOL NOTED CLEANED AND DRIED. UA SPECIMEN OBTAINED AND SENT TO LAB FOR UA AND CULTURE. REPOSITIONED FOR COMFORT.
[2016-10-14 22:32] LABS: APPEARANCE CLEAR (CLEAR); BILIRUBIN NEGATIVE (NEGATIVE); COLOR YELLOW (YELLOW); GLUCOSE NEGATIVE (NEGATIVE); KETONE NEGATIVE (NEGATIVE); LEUKOCYTE ESTERASE NEGATIVE (NEGATIVE); NITRITE NEGATIVE (NEGATIVE); PROTEIN NEGATIVE (NEGATIVE); UROBILINOGEN NORMAL (NORMAL)
--- NOTE | 2016-10-14 22:45 | NUR ---
COPNTINUES TO MOAN LOUDLY IF IN PAIN. DILAUDID 2MG IVP GIVEN FOR PAIN CONTROL.
--- NOTE | 2016-10-15 | NUR ---
TURNED REPOSITIONED IN BED. BLUE BOOTS TO BOTH FEET. SPOUSE AT BEDSIDE.
--- NOTE | 2016-10-15 01:02 | NUR ---
YELLING OUT UNABLE TO UNDERSTAND WORDS MOANS REALLY LOAD. RESTLESS. REPOSITIONED IN BED. XANAX 1MG PO IN APPLESAUCE GIVEN FOR RESTLESSNESS.
[2016-10-15 05:44] LABS: BASOPHILS 0.3 % (0-2); EOSINOPHILS 0.9 % (0-7); HEMATOCRIT 32.9 % (36.0-48.0); HEMOGLOBIN 9.8 g/dL (12-16); IMMATURE GRANULOCYTES 1.4 % (0-5); LYMPHOCYTES 26.7 % (15-50); MCH 27.9 pg (26.0-34.0); MCHC 29.8 g/dL (31.0-37.0); MCV 93.7 fL (80.0-100.0); MEAN PLATELET VOLUME 8.8 fL (7.4-10.4); MONOCYTES 9.4 % (2-11); NEUTROPHILS 61.3 % (40-80); PLATELET COUNT 222 10x3/uL (130-400); RBC 3.51 10x6/uL (4.00-5.40); RDW 23.9 % (11.5-14.5)
[2016-10-15 06:09] LABS: CALC OSMOLALITY 290 mosm/kg (275-300); CALCIUM 9.3 mg/dL (8.5-10.1); CARBON DIOXIDE 26.8 mmol/L (21.0-32.0); CHLORIDE - SERUM 108 mmol/L (98-107); GLUCOSE 95 mg/dL (74-106); SODIUM 144 mmol/L (136-145); UREA NITROGEN 23 mg/dL (7-18)
[2016-10-15 06:11] LABS: CREATININE - SERUM 0.6 mg/dL (0.6-1.3); POTASSIUM - SERUM 3.6 mmol/L (3.5-5.1); eGFR NON AFRICAN AMERICAN > 90 mL/min (90-120)
[2016-10-15 06:35] VITALS: BP 118/63
--- NOTE | 2016-10-15 07:32 | NUR ---
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 SISTER AND SPOUSE AT BEDSIDE. PT IS MOANING AND CRYING OUT. SHE IS INCONSOLABLE, BUT FAMILY REMAINS AT BEDSIDE. CALL LIGHT IN FAMILIES REACH. WILL CONTINUE WITH PLAN OF CARE.
--- NOTE | 2016-10-15 08:26 | NUR ---
SCHEDULED MEDICATIONS ADMINISTERED AT THIS TIME CRUSHED AND IN APPLESAUCE. PT IS CRYING OUT AND MOANING, BUT EATING FEEDS HER. PRN XANAX AND DILAUDID ADMINISTERED PER ORDER. ASSESSMENT PERFORMED PER FLOWSHEET. REMAINS IN DROPLET ISOLATION. DENIES NEEDS AT THIS TIME. CALL LIGHT IN REACH, WILL CONTINUE WITH PLAN OF CARE.
[2016-10-15 08:45] VITALS: BP 157/81
--- NOTE | 2016-10-15 11:05 | NUR ---
RIGHT UPPER ARM PICC LINE DRESSING CHANGED AT THIS TIME IN STERILE FASHION BY LORETO ROPE TIER WITH HIS INSTRUCTOR. PT TOLERATED.
[2016-10-15 11:37] VITALS: BP 151/93
--- NOTE | 2016-10-15 12:55 | NUR ---
PRN DILAUDID ADMINISTERED AT THIS TIME FOR PAIN 7/10 PER BRICENO HENAO SCALE. REMAINS AT BEDSIDE.
--- NOTE | 2016-10-15 13:29 | NUR ---
OT NOTE: PT MOANING LOUDLY AND RHYTMICALLY FOR MOST OF TMT SESSION. PERFORMED PROM TO B UES. ATTEMPTED NUMEROUS TIMES TO RE ORIENT AND DISTRACT PT FROM CONTINUAL MOANING, HOWEVER, UNSUCCESSFUL. UNABLE TO GET PT TO OPEN HER EYES
--- NOTE | 2016-10-15 14:35 | NUR ---
SLEEPING AT THIS TIME. REMAINS AT BEDSIDE. RESPIRATIONS EVEN AND NON LABORED. CALL LIGHT IN REACH, WILL CONTINUE WITH PLAN OF CARE.
[2016-10-15 15:27] VITALS: BP 153/60
--- NOTE | 2016-10-15 18:13 | NUR ---
PRN BENADRYL ADMINISTERED PER ORDER FOR PT'S CONTINUED CRYING AND ANXIETY WITH INCONSOLABILITY. SISTER AND SPOUSE AT BEDSIDE. WILL CONTINUE WITH PLAN OF CARE.
[2016-10-15 20:00] VITALS: BP 131/94
--- NOTE | 2016-10-15 20:20 | NUR ---
ASSESSMENT PER FLOWSHEET. PT ON FIRST STEP AIR BED. SR UP X3 CALL LIGHT WITHIN REACH SPOUSE AT BEDSIDE. HOB UP 35 DEGREES. O2 ON 2L/M PER NC. RT ARM AND LEGS FLACCID TREMORS TO LEFT ARM. REBOLLEDO TO BEDSIDE DRAINAGE WITH YELLOW URINE. BOX ALARM ON. PT ON DROPLET ISOLATION.
--- NOTE | 2016-10-15 21:11 | NUR ---
meds given as per aug. pt moaning loudly as if pain . SPOUSE AT BEDSIDE. DILAUDID 2MG IVP GIVEN FOR PAIN CONTROL.
--- NOTE | 2016-10-15 23:30 | NUR ---
SPOUSE LEFT TO GO HOME. PATIENT RESTING COMFORTABLY. EYES CLOSED RESPIRATIONS WITH EASE AND UNLABORED. REPOSITIONED IN BED PT ON FIRST STEP AIR BED.
[2016-10-16] VITALS: BP 126/93
--- NOTE | 2016-10-16 03:14 | NUR ---
EYES CLOSED RESPIRATIONS WITH EASE AND UNLABORED. O2 ON 2L/M PER NC NO DISTRESS NOTED.
[2016-10-16 04:00] VITALS: BP 156/91
--- NOTE | 2016-10-16 04:10 | NUR ---
MOANING LOUDLY IF IN PAIN. DILAUDID 2MG IVP GIVEN FOR PAIN CONTROL. REPOSITIONED IN BED INC OF MODERATE SOFT STOOL. CLEANED AND PARTIAL LINENS CHANGED.
[2016-10-16 05:43] LABS: BASOPHILS 0.2 % (0-2); EOSINOPHILS 0.5 % (0-7); HEMATOCRIT 34.2 % (36.0-48.0); HEMOGLOBIN 10.3 g/dL (12-16); IMMATURE GRANULOCYTES 0.9 % (0-5); LYMPHOCYTES 31.4 % (15-50); MCH 28.2 pg (26.0-34.0); MCHC 30.1 g/dL (31.0-37.0); MCV 93.7 fL (80.0-100.0); MEAN PLATELET VOLUME 9.1 fL (7.4-10.4); MONOCYTES 9.1 % (2-11); NEUTROPHILS 57.9 % (40-80); RBC 3.65 10x6/uL (4.00-5.40); RDW 24.5 % (11.5-14.5); WBC 12.9 10x3/uL (4.8-10.8)
[2016-10-16 05:51] LABS: PLATELET COUNT 176 10x3/uL (130-400)
--- NOTE | 2016-10-16 06:31 | NUR ---
YELLING AND MOANING. AGGITATED RESTLESS. XANAX 1MG PO CRUSHED IN APPLESAUCE. GIVEN FOR AGGITATION
--- NOTE | 2016-10-16 07:25 | NUR ---
PRN ATIVAN 1MG ADMINISTERED AT THIS TIME PER ORDER FOR ANXIETY. PT IN BED WITH EYES CLOSED, BUT CRYING OUT AND SCREAMING. SISTERS REMAIN AT BEDSIDE. PT IS RESTLESS AND AGITATED IN APPEARANCE. WILL MONITOR MEDICATION FOR EFFECTIVENESS.
[2016-10-16 07:45] LABS: ANION GAP 15.4 mmol/L (8-16); CALCIUM 9.6 mg/dL (8.5-10.1); CARBON DIOXIDE 22.9 mmol/L (21.0-32.0)
[2016-10-16 07:47] LABS: CREATININE - SERUM 0.9 mg/dL (0.6-1.3); POTASSIUM - SERUM 5.3 mmol/L (3.5-5.1)
[2016-10-16 08:21] VITALS: BP 141/97
--- NOTE | 2016-10-16 10:49 | NUR ---
SCHEDULED MEDICATIONS ADMINISTERED AT THIS TIME, WELL PRN ATIVAN FOR AGGITATION AND ANXIETY. MEDICATIONS CRUSHED AND ADMINISTERED IN LIQUID WITH A SYRINGE. TAKEN WITH MINIMAL DIFFICULTY. REMAINS IN ISOLATION, DOOR OPEN. WILL CONTINUE WITH PLAN OF CARE.
--- NOTE | 2016-10-16 12:01 | NUR ---
OT NOTE: PT WAS ASLEEP UPON ENTERING ROOM. PT DID NOT AWAKEN DURING PROM EXS..SHE WAS EITHER EXHAUSTED OR MED INDUCED. TOLERATED PROM WELL, BUT NO ATTEMPT TO ACTIVELEY MOVE JOINTS
[2016-10-16 12:26] VITALS: BP 121/51
[2016-10-16 16:22] VITALS: BP 142/77
--- NOTE | 2016-10-16 17:14 | NUR ---
OT NOTE: PT COMPLETED BUE PROM TO DECREASE RISK OF SKIN BREAKDOWN. THANK YOU, PAMELA MANE/El
[2016-10-16 20:00] VITALS: BP 115/66
[2016-10-17] VITALS: BP 108/60
[2016-10-17 04:00] VITALS: BP 184/81
--- NOTE | 2016-10-17 06:38 | NUR ---
ASSESSED AT THE BEGINNING OF THE SHIFT. PT WAS CRYING OUT FREQUENTLY AND AT HS WHEN MEDS WERE GIVEN SHE RECEIVED ATIVAN. IT WAS HARD TO GIVE HER HER MEDS BECAUSE EVEN CRUSHED AND GIVEN ORAL SHE WAS NOT SWALLOWING WELL. DURING THE NIGHT SHE WAS ALSO GIVEN DILAUDID TWO TIMES FOR CRYING IF SHE WERE IN PAIN. ONCE WHEN HER SBP WAS ELEVATED SHE RECEIVED HER PRN FOR ELEVATED B/P. WE HAVE BEEN TURNING HER PER PROTOCOL AND SHE HAS FOOT DROP BOOTS ON. THERE IS A FIRST STEP AIR MATTRESS IN PLACE. SHE HAS A REBOLLEDO CATH AND HAD ONE INCONT. BM DURING THE NIGHT. THIS MORINING SHE HAD A COMPLETE BATH AND WE HAVE BEEN PUTIING CREAM ORDERED ON HER BOTTOM. THE BED IS LOW, RAILS UP X'S 2 WITH THE CALL LIGHT AT HAND.
--- NOTE | 2016-10-17 07:30 | NUR ---
AROUSES TO VERBAL STIMULATION. CRYING OUT LOUDLY AND MOANING WITH WHAT APPEARS TO BE PAIN. GIVEN 2MG DILAUDID SLOW IVP FOR SAME WELL SOME HALDOL IV TO SIGNS OF AGITATION. WILL MONITOR. LUNGS ARE CLEAR BUT DIMINISHED THROUGHOUT LUNG BROOKS. NO COUGH NOTED. SKIN IS INTACT WITHOUT REDNESS. REBOLLEDO PATENT WITH CLEAR TEA COLORED URINE. PICC TO RIGHT UPPER ARM PATENT WITHOUT REDNESS AT INSERTION SITE. ON FIRST STEP OVERLAY. NO NEEDS NOTED.
[2016-10-17 07:35] LABS: BASOPHILS 0.3 % (0-2); EOSINOPHILS 0.4 % (0-7); HEMATOCRIT 35.1 % (36.0-48.0); HEMOGLOBIN 10.5 g/dL (12-16); LYMPHOCYTES 22.9 % (15-50); MCH 28.2 pg (26.0-34.0); MCHC 29.9 g/dL (31.0-37.0); MCV 94.4 fL (80.0-100.0); MEAN PLATELET VOLUME 8.9 fL (7.4-10.4); MONOCYTES 8.1 % (2-11); NEUTROPHILS 67.3 % (40-80); PLATELET COUNT 209 10x3/uL (130-400); RBC 3.72 10x6/uL (4.00-5.40); RDW 24.2 % (11.5-14.5); WBC 14.1 10x3/uL (4.8-10.8)
[2016-10-17 07:54] LABS: CALC OSMOLALITY 296 mosm/kg (275-300); CALCIUM 9.7 mg/dL (8.5-10.1); CARBON DIOXIDE 26.2 mmol/L (21.0-32.0); CHLORIDE - SERUM 111 mmol/L (98-107); CREATININE - SERUM 0.8 mg/dL (0.6-1.3); GLUCOSE 98 mg/dL (74-106); SODIUM 146 mmol/L (136-145); UREA NITROGEN 29 mg/dL (7-18); VANCOMYCIN - RANDOM 19.1 ug/mL (10.0-20.0); eGFR NON AFRICAN AMERICAN 77 mL/min (90-120)
[2016-10-17 08:00] VITALS: BP 168/85
[2016-10-17 08:00] LABS: POTASSIUM - SERUM 4.1 mmol/L (3.5-5.1)
--- NOTE | 2016-10-17 09:00 | NUR ---
RESTING QUIETLY WTIH EYES CLOSED. WILL HOLD AM MEDS FOR NOW.
--- NOTE | 2016-10-17 12:15 | NUR ---
YELLING AND THRASHING AROUND IN BED. GIVEN 2MG DILAUDID WITH 1MG ATIVAN SLOW IVP FOR SAME. WILL MONITOR. FAMILY IN ROOM.
[2016-10-17 12:29] VITALS: BP 158/59
--- NOTE | 2016-10-17 13:39 | NUR ---
RESTING QUIETLY AT THIS TIME. NO NEEDS NOTED.
--- NOTE | 2016-10-17 19:45 | NUR ---
RESTING QUIETLY FOR NOW WITH EYES CLOSED. NO CHANGES NOTED. FAMILY IN ROOM.
[2016-10-17 20:00] VITALS: BP 151/101
[2016-10-17 23:54] VITALS: BP 105/73
--- NOTE | 2016-10-18 07:30 | NUR ---
RESTING QUIETLY AT THIS TIME. FAMILY IN ROOM. RASH NOTED TO BILATERAL ARMS. DR. BLACKWOOD HERE AND SAW THIS. NEW ORDERS RECEIVED. LUNGS ARE CLEAR BILATERALLY, NO COUGH NOTED. SKIN IS INTACT WITHOUT REDNESS EXCEPT SLIGHT DRY PEELING AREA NOTED TO COCCYX. PICC TO RIGHT UPPER ARM IS PATENT WITHOUT REDNESS AT INSERTION SITE. REBOLLEDO PATENT WITH CLEAR TEA COLORED URINE. O2 AT 2L NC. NO NEEDS NOTED.
[2016-10-18 08:03] VITALS: BP 130/63
--- NOTE | 2016-10-18 10:20 | NUR ---
VERY RESTLESS AND AGITATED AT THIS TIME. GIVEN 1 MG ATIVAN SLOW IVP FOR SAME. WILL MONITOR.
--- NOTE | 2016-10-18 12:00 | NUR ---
RESTING QUIETLY AT THIS TIME. NO NEEDS NOTED. REFUSED OFFER OF FOOD. RASH TO ARMS IS CLEARED AT THIS TIME.
--- NOTE | 2016-10-18 14:00 | NUR ---
RESTING WITH EYES CLOSED. NO NEEDS NOTED.
--- NOTE | 2016-10-18 16:00 | NUR ---
REPOSITIONED IN BED FOR COMFORT. INCONTINENT OF SOFT FORMED STOOL. SKIN CARE PER STAFF. TECH NOTED THAT IT APPEARED TO BE STOOL LEAKING FROM VAGINA. WILL MONITOR. REPORTS THIS IS NOT THE FIRST TIME SHE HAS NOTICED THIS. WILL NOTIFY MD IN AM ROUNDS. VERY FRETFULL AFTER MOVEMENT AND CRY ING OUT. GIVEN 2MG DILAUDID SLOW IVP FOR PAIN. WILL MONITOR.
[2016-10-18 16:11] VITALS: BP 124/64
--- NOTE | 2016-10-18 19:26 | NUR ---
REPORSITIONED IN BED FOR COMFORT. IN ROOM. VSS. NO NEEDS NOTED.
--- NOTE | 2016-10-18 19:51 | NUR ---
GREETED AND ASSESSED PT AT THIS TIME
[2016-10-18 20:00] VITALS: BP 166/104
--- NOTE | 2016-10-18 22:01 | NUR ---
ALL HS MEDS WERE CRUSHED AND GIVEN TO MIXED WITH CHOCOLATE ICECREAM. SHE DOES OK IF YOU GO SLOWLY AND MAKE SURE THAT SHE GETS EACH BITE SWALLOWED BEFORE ANOTHER. SHE ALSO GOT DILAUDID FOR PAIN AND WAS REPOSITIONED FOR COMFORT. HER HAUSBAND IS IN THE ROOM AT THIS TIME.
[2016-10-19] VITALS (44 sets, daily range): BP systolic 68–163; BP diastolic 22–93
--- NOTE | 2016-10-19 04:42 | NUR ---
PT WAS GIVEN A COMPLETE BED BATH AT ABOUT 3 AM AND ALL LINENS CHANGED. ATIVAN HAD BEEN GIVEN BECAUSE SHE HAD BEEN CALLING OUT AND SHE IS STILL CALLING OUT. WILL PROBLY GIVE HER DILAUDID SHORTLY IF SHE STILL IS CRYING OUT IF SHE IS HURTING.
[2016-10-19 05:22] LABS: BASOPHILS 0.1 % (0-2); EOSINOPHILS 0.1 % (0-7); HEMATOCRIT 37.6 % (36.0-48.0); HEMOGLOBIN 11.4 g/dL (12-16); IMMATURE GRANULOCYTES 0.6 % (0-5); LYMPHOCYTES 8.5 % (15-50); MCH 28.5 pg (26.0-34.0); MCHC 30.3 g/dL (31.0-37.0); MONOCYTES 8.1 % (2-11); NEUTROPHILS 82.6 % (40-80); PLATELET COUNT 181 10x3/uL (130-400); RDW 24.4 % (11.5-14.5)
[2016-10-19 05:38] LABS: ANION GAP 18.8 mmol/L (8-16); CALCIUM 10.6 mg/dL (8.5-10.1); CARBON DIOXIDE 22.3 mmol/L (21.0-32.0)
[2016-10-19 05:39] LABS: CREATININE - SERUM 1.2 mg/dL (0.6-1.3); POTASSIUM - SERUM 5.1 mmol/L (3.5-5.1)
[2016-10-19 05:42] LABS: WBC 19.4 10x3/uL (4.8-10.8)
--- NOTE | 2016-10-19 07:30 | NUR ---
RESTING QUIETLY WITH EYES CLOSED AFTER GIVEN DILAUDID. AROUSES TO VERBAL AND TACTILE STIMULATION. LUNGS HAVE CRACKLES THROUGHOUT LUNG BROOKS, OCCASSIONAL DRY COUGH NOTED. SKIN IS INTACT WITHOUT REDNESS EXCEPT REDNESS/DRYNESS TO COCCYX AREA. PICC TO RIGHT UPPER ARM IS PATENT WITHOUT REDNESS AT INSERTION SITE. REBOLLEDO PATENT WITH VERY DARK URINE. DR. BLACKWOOD HERE NOTIFIED OF ELEVATED TEMP, LOW BP AND ELEVATED HEART RATE. NEW ORDERS RECEIVED.
--- NOTE | 2016-10-19 10:00 | NUR ---
ATTEMTED TO GIVE AM MEDS. PATIENT IS NOT RESPONDING TO VERBAL CUEING OR INSTRUCTIONS TO SWALLOW AT THIS TIME. WILL HOLD AM MEDS FOR NOW. SISTER IS AT BEDSIDE.
--- NOTE | 2016-10-19 12:25 | NUR ---
RAPID RESPONSE CALLED, SID KAPADIA INITIATED WELL. DR. BLACKWOOD NOTIFIED OF SITUATION. NO NEW ORDERS AT THIS TIME. CALLED ON PHONE AND TOLD HIM TO COME THERE WAS A MAJOR CHANGE.
--- NOTE | 2016-10-19 12:52 | NUR ---
TRANSFERRED TO ICU ROOM 2205 VIA BED. FAMILY IS WITH PATIENT.
--- NOTE | 2016-10-19 12:55 | NUR ---
ARRIVED TO ICU ROOM 2305 VIA BED POST CODE ON FLOOR. NONRESPONSIVE, INTUBATED, F/C WITH THICK DARK URINE IN BAG, F/C REPLACED WITH NEW F/C WITH NOTED BLOODY URINE TO BAG. VENT PER VENT FLOW SHEET. IV NS INFUSING TO UPPER RIGHT ARM PICC LINE VIA GRAVITY, LEVOPHED ALSO INFUSING VIA PUMP. IN WAITING ROOM AND WAS ESCORTED TO PATIENT ROOM AFTER ADMITTION TO THIS UNIT. BP VERY LOW WITH NOTED READINGS OF SBP IN THE MID 30s. SKIN COLD TO TOUCH WITH NOTED BLUE TINGE TO LOWER EXT. AND HANDS, UNABLE TO PALPATE PEDAL PULSES. RADIAL PULSES PALP.
[2016-10-19 13:33] LABS: ALBUMIN 2.8 g/dL (3.4-5.0); BILIRUBIN - TOTAL 0.29 mg/dL (0.2-1.3); CALCIUM 10.1 mg/dL (8.5-10.1); MAGNESIUM - SERUM 2.2 mg/dL (1.8-2.4); PROTEIN - SERUM 6.5 g/dL (6.4-8.2)
[2016-10-19 13:34] LABS: CREATININE - SERUM 2.1 mg/dL (0.6-1.3); PHOSPHOROUS 9.2 mg/dL (2.5-4.9)
[2016-10-19 13:35] LABS: ANION GAP 32.7 mmol/L (8-16); POTASSIUM - SERUM 9.7 mmol/L (3.5-5.1); TROPONIN-I 0.098 ng/mL (0.000-0.060)
[2016-10-19 14:24] LABS: HEMATOCRIT 33.8 % (36.0-48.0); MCH 28.5 pg (26.0-34.0); MCHC 29.6 g/dL (31.0-37.0); MCV 96.3 fL (80.0-100.0); MEAN PLATELET VOLUME 9.9 fL (7.4-10.4); PLATELET COUNT 139 10x3/uL (130-400); RBC 3.51 10x6/uL (4.00-5.40); RDW 24.6 % (11.5-14.5); WBC 32.3 10x3/uL (4.8-10.8)
[2016-10-19 14:25] LABS: MAGNESIUM - SERUM 1.8 mg/dL (1.8-2.4)
[2016-10-19 14:26] LABS: TROPONIN-I 0.304 ng/mL (0.000-0.060)
[2016-10-19 14:45] LABS: LYMPHOCYTES 11 % (15-50); MONOCYTES 4 % (2-11); NEUTROPHILS 79 % (40-80); PLATELET ESTIMATE DECREASED
[2016-10-20] VITALS (85 sets, daily range): BP systolic 95–170; BP diastolic 46–104
[2016-10-20 05:05] LABS: BASOPHILS 0.2 % (0-2); EOSINOPHILS 0 % (0-7); HEMATOCRIT 32.9 % (36.0-48.0); HEMOGLOBIN 10.2 g/dL (12-16); IMMATURE GRANULOCYTES 2.2 % (0-5); LYMPHOCYTES 14.3 % (15-50); MCH 28.5 pg (26.0-34.0); MCV 91.9 fL (80.0-100.0); MEAN PLATELET VOLUME 10.2 fL (7.4-10.4); MONOCYTES 2.6 % (2-11); NEUTROPHILS 80.7 % (40-80); PLATELET COUNT 131 10x3/uL (130-400); RBC 3.58 10x6/uL (4.00-5.40)
[2016-10-20 05:32] LABS: ALBUMIN 2.7 g/dL (3.4-5.0); BILIRUBIN - TOTAL 0.34 mg/dL (0.2-1.3); CALCIUM 8.6 mg/dL (8.5-10.1); PROTEIN - SERUM 6.5 g/dL (6.4-8.2)
[2016-10-20 05:40] LABS: ANION GAP 19.7 mmol/L (8-16); CREATININE - SERUM 2.7 mg/dL (0.6-1.3); POTASSIUM - SERUM 4.7 mmol/L (3.5-5.1)
--- NOTE | 2016-10-20 07:30 | NUR ---
REPORT RECD PT CARE ASSUMED. PT IS ON VENTIALTOR AT THIS TIME, NO SEDATION. PT GRIMACES TO PAINFUL STIMULI BUT DOES NOT OPEN EYES. S1S2 NOTED, ST PER CM. LUNG SOUNDS DIMINISHED BILAT. PT HAS OGT/REBOLLEDO/SCDS IN PLACE. PPP-WEAK. VSS. WILL MONITOR.
[2016-10-20 08:10] LABS: FUNGUS MYCOLOGY CULTURE Final report (())
--- NOTE | 2016-10-20 09:00 | NUR ---
PT FAMILY AT BEDSIDE FOR VISITATION. FAMILY PROVIDED WITH UPDATE. TO CHANGES TO PT AT THIS TIME.
--- NOTE | 2016-10-20 11:00 | NUR ---
PT HAS BM. PT CHANGED AND RECS COMPLETE LINEN CHANGE. PT REPOSITIONED. VSS. WILL MONITOR.
--- NOTE | 2016-10-20 11:04 | NUR ---
Nutrition Follow Up: Chart reviewed and spoke with , RN. Pt remains on vent. Per MD TF to start today. Noted wt loss 16# since admit. Labs reviewed - BUN, Cr, Glucose elevated. Meds noted including Vaso, Levo, Humalog, Solu-Medrol, D5 NS @ 125 ml/hr providing 510 kcal. Noted pt with stage I ulcer. Will put order in to start TF Pulmocare @ 10 ml/hr. Advance 10 ml every 6-8 hours as tolerated to goal rate of 35 ml/hr (other kcal source - IV fluids). Goal rate will provide 1260 kcal, 52 g protein, 651 ml free water. Water flushes 25 ml/hr. RD will continue to monitor pt progress.
--- NOTE | 2016-10-20 13:00 | NUR ---
PT REPOSITIONED AND RECS PARTIAL LINEN CHANGE. VSS. WILL MONITOR.
--- NOTE | 2016-10-20 15:00 | NUR ---
TUBE FEED INITIATED AT THIS TIME. PT REPOSITIONED, AND ORAL CARE PROVIDED. VSS.
--- NOTE | 2016-10-20 17:00 | NUR ---
PT FAMILY HERE FOR VISITSTION. NO CHANGES AT THIS TIME. VSS. WILL MONITOR.
--- NOTE | 2016-10-20 19:10 | NUR ---
ASSESSMENT COMPLETED. SEE FLOW SHEET
--- NOTE | 2016-10-20 21:00 | NUR ---
FAMILY AT BEDSIDE. UPDATE GIVEN. ST ON THE MONITOR.
--- NOTE | 2016-10-20 23:00 | NUR ---
REASSESSMENT COMPLETED.
[2016-10-21] VITALS (96 sets, daily range): BP systolic 67–149; BP diastolic 39–93
--- NOTE | 2016-10-21 01:00 | NUR ---
NO CHANGES AT THIS TIME.
--- NOTE | 2016-10-21 03:00 | NUR ---
RADIOLOGY HERE FOR CXR. REASSESSMENT COMPLETED.
[2016-10-21 05:03] LABS: BASOPHILS 0.1 % (0-2); EOSINOPHILS 0 % (0-7); HEMATOCRIT 28.9 % (36.0-48.0); HEMOGLOBIN 9.2 g/dL (12-16); IMMATURE GRANULOCYTES 0.9 % (0-5); LYMPHOCYTES 18.7 % (15-50); MCH 29.2 pg (26.0-34.0); MCHC 31.8 g/dL (31.0-37.0); MCV 91.7 fL (80.0-100.0); MEAN PLATELET VOLUME 10.1 fL (7.4-10.4); MONOCYTES 4.2 % (2-11); NEUTROPHILS 76.1 % (40-80); PLATELET COUNT 106 10x3/uL (130-400); RBC 3.15 10x6/uL (4.00-5.40); RDW 23.8 % (11.5-14.5)
[2016-10-21 05:08] LABS: WBC 11.3 10x3/uL (4.8-10.8)
[2016-10-21 05:26] LABS: ALBUMIN 2.3 g/dL (3.4-5.0); BILIRUBIN - TOTAL 0.43 mg/dL (0.2-1.3); CALCIUM 7.4 mg/dL (8.5-10.1); CARBON DIOXIDE 27.8 mmol/L (21.0-32.0); CREATININE - SERUM 3.2 mg/dL (0.6-1.3); MAGNESIUM - SERUM 1.5 mg/dL (1.8-2.4); POTASSIUM - SERUM 4.8 mmol/L (3.5-5.1); PROTEIN - SERUM 5.5 g/dL (6.4-8.2)
--- NOTE | 2016-10-21 06:17 | NUR ---
FAMILY AT BEDSIDE. UPDATE GIVEN
--- NOTE | 2016-10-21 07:00 | NUR ---
REPORT RECEIVED, ASSESSMENT COMPLETED. DROPLET ISOLATION BEING OBSERVED. NO VISUAL CUES OF DISTRES NOTED.
--- NOTE | 2016-10-21 08:45 | NUR ---
PULMOCARE INCREASED TO 20 ML/HR PER ORDERS,
--- NOTE | 2016-10-21 09:30 | NUR ---
FAMILY X3 WAS HERE FOR VISITATIONS. HAD TO ENCOURAGE TO DRESS IN FULL ISOLATION ATTIRE AND NOT JUST THE MASK. ALL QUESTIONS ANSWERED.
--- NOTE | 2016-10-21 12:20 | NUR ---
PATIENTS DAUGHTER AND SPOUSE HERE FOR VISITATION. DAUGHTER REQUESTED UPDATE ON WHAT THE DOCTORS HAD SAID. UPDATE WAS GIVEN. SHE STATED THAT THE ANSWER WILL BE NO TO DIALYSIS IF IT COMES TO THAT. SHE STATED THAT HER MOM DID NOT WANT TO LIVE LIKE THIS AND SHE SAID SHE FEELS LIKE THEY ARE BEING CRUEL LETTING THIS HAPPEN. SHE STATED THAT SHE KNOWS HER SPOUSE HAS THE FINAL SAY, BUT SHE WOULD MAKE SURE TO HAVE A DISCUSSION WITH HIM BEFORE IT COMES TO DIALYSIS.
--- NOTE | 2016-10-21 15:40 | NUR ---
PATIENTS FAMILY HERE FOR VISITATION. DENIES NEEDS AT THIS TIME.
--- NOTE | 2016-10-21 18:32 | NUR ---
FAMILY X3 HERE FOR VISITATIONS. UPDATED ON THE REASON FOR THE RECTAL TUBE. NO OTHER QUESTIONS VOICED.
--- NOTE | 2016-10-21 19:15 | NUR ---
Assessment completed per flowsheet, recieved patient sedated in bed on vent. Unable to assess LOC due to sedation. Eyes PERRLA @ 3mm with brisk response, sclera is white. ETT 7.5 @ 23cm noted, OGT with pulmocare @ 30ml/hr. S1/S2 noted with patient NSR on telemetry, rhythmic and regular. Crackles noted bilateral upper with diminished lower, Vent settings R-14 V-600 40% P-8 PS-10. Abdomen is round and soft, bowel sounds active x4. Bañuelos secured, dark juan francisco urine noted in collection bag. Weakness noted all extremities with all pulses palpable, cap refill <3 sec. Rectal tube noted with liquid brown stool in collection bag. PICC noted R upper arm, patent with fluids infusing. Oral care/suctioning provided, patient repositioned for comfort. No further needs at this time, all VSS and will continue to monitor.
--- NOTE | 2016-10-21 22:50 | NUR ---
Reassessment completed per flowsheet, patient sedated in bed on vent. Patient Sinus tach on telemetry, rhythmic and regular. Vent settings unchanged from previous assessment, O2 sat 95%. Patient unresponsive to commands, withdraws from pain stimuli. Oral care/suctioning provided, patient repositioned for comfort. No further needs at this time, all VSS and will continue to monitor.
[2016-10-22] VITALS (24 sets, daily range): BP systolic 87–142; BP diastolic 46–74
--- NOTE | 2016-10-22 01:04 | NUR ---
REPOSITIONED FOR COMFORT, ORAL CARE PROVIDED
[2016-10-22 04:23] LABS: BASOPHILS 0.1 % (0-2); EOSINOPHILS 0 % (0-7); HEMATOCRIT 29.3 % (36.0-48.0); IMMATURE GRANULOCYTES 0.6 % (0-5); LYMPHOCYTES 9.4 % (15-50); MCH 28.3 pg (26.0-34.0); MCHC 30.7 g/dL (31.0-37.0); MCV 92.1 fL (80.0-100.0); MEAN PLATELET VOLUME 10.3 fL (7.4-10.4); MONOCYTES 4.8 % (2-11); NEUTROPHILS 85.1 % (40-80); PLATELET COUNT 109 10x3/uL (130-400); RBC 3.18 10x6/uL (4.00-5.40)
[2016-10-22 04:29] LABS: INR 1.26 (0.85-1.17); PROTIME 15.7 SECONDS (11.6-15.0)
[2016-10-22 04:40] LABS: ALBUMIN 2.6 g/dL (3.4-5.0); ANION GAP 17.7 mmol/L (8-16); BILIRUBIN - TOTAL 0.51 mg/dL (0.2-1.3); CALCIUM 7.7 mg/dL (8.5-10.1); CARBON DIOXIDE 26.6 mmol/L (21.0-32.0); CREATININE - SERUM 3.8 mg/dL (0.6-1.3); POTASSIUM - SERUM 5.3 mmol/L (3.5-5.1); PROTEIN - SERUM 5.5 g/dL (6.4-8.2)
[2016-10-22 04:43] LABS: MAGNESIUM - SERUM 2.2 mg/dL (1.8-2.4)
--- NOTE | 2016-10-22 05:17 | NUR ---
COMPLETE BB LINEN CHANGE ADM. L SUBCLAV CVL DRSG CHANGE ADM NO NWE FINDINGS. TPM DRSG CHANGE ADM NO NEW FINDINGS. VSS. WILL CONTINUE TO MONITOR
--- NOTE | 2016-10-22 07:00 | NUR ---
REPORT RECEIVED. ASSESSMENT COMPLETED. DRESSING CHANGED TO HER RIGHT UPPER ARM PICC LINE. NO VISUAL CUES OF DISTRESS NOTED.
--- NOTE | 2016-10-22 11:32 | NUR ---
PROPOFOL DECREASED TO 20 MCG. WILL MONITOR.
--- NOTE | 2016-10-22 12:00 | NUR ---
Nutrition follow-up: Intubated, sedated at this time. Pulmocare infusing @ 30 ml/hr via OGT RDN following.
--- NOTE | 2016-10-22 13:21 | NUR ---
SPOKE WITH KISHOR IN PHARMACY. PATIENTS VANC TROUGH 28.0. WE WILL HOLD HER VANCOMYCIN AND REDRAW LAB IN THE AM.
--- NOTE | 2016-10-22 21:15 | NUR ---
Assessment completed per flowsheet, received patient sedated in bed on vent. Patient disoriented x4, does not follow commands. Eyes PERRLA @ 3mm with brisk response, sclera is white. ETT 7.5 @ 23 cm secured, OGT with Pulmocare @ 35ml/hr. S1/S2 noted with patient Sinus Tach on telemetry with HR 100, rhythmic and regular. Crackles noted bilateral upper with diminished lower, Vent settings SIMV R-14 V-600 40% P-8 PS-10. Abdomen is round with bowel sounds active x4, Bañuelos secured in place with Rectal tube noted. SCD off bilateral, B/P cuff R leg with DVT precautions for L leg. PICC noted R upper arm, patent with fluids infusing. Oral care/suctioning provided, patient repositioned for comfort. Unable to assess pain at this time, no further need and will continue to monitor.
--- NOTE | 2016-10-22 23:15 | NUR ---
Reassessment completed per flowsheet, patient in bed sedated on vent. Sinus Tach on telemetry with HR 104, rhythmic and regular. Vent settings unchanged from previous assessment, O2 sat 99%. Patient does not folow commands or open eyes, withdraws from pain stimuli. Oral care/suctioning provided, patient repositioned for comfort. No further needs at this time, all VSS and will continue to monitor.
[2016-10-23] VITALS (24 sets, daily range): BP systolic 101–154; BP diastolic 48–99
--- NOTE | 2016-10-23 03:15 | NUR ---
Reassessment completed per flowsheet, patient resting in bed sedated on vent. Patient Sinus Tach on telemetry with HR 100, rhtyhmic and regular. Vent setting unchanged from previous assessment, O2 sat 99%. Oral care/suctioning provided, patient repositioned for comfort. No further needs at this time, all VSS and will continue to monitor.
[2016-10-23 03:42] LABS: BASOPHILS 0 % (0-2); EOSINOPHILS 0.1 % (0-7); HEMATOCRIT 28.6 % (36.0-48.0); IMMATURE GRANULOCYTES 0.7 % (0-5); LYMPHOCYTES 8.5 % (15-50); MCH 28.6 pg (26.0-34.0); MCHC 31.5 g/dL (31.0-37.0); MCV 90.8 fL (80.0-100.0); MEAN PLATELET VOLUME 10.6 fL (7.4-10.4); MONOCYTES 4.2 % (2-11); NEUTROPHILS 86.5 % (40-80); PLATELET COUNT 104 10x3/uL (130-400); RBC 3.15 10x6/uL (4.00-5.40); RDW 22.2 % (11.5-14.5)
[2016-10-23 03:54] LABS: ALBUMIN 2.3 g/dL (3.4-5.0); ANION GAP 15.9 mmol/L (8-16); BILIRUBIN - TOTAL 0.54 mg/dL (0.2-1.3); CALCIUM 7.7 mg/dL (8.5-10.1); CARBON DIOXIDE 26.1 mmol/L (21.0-32.0); CREATININE - SERUM 4.2 mg/dL (0.6-1.3); MAGNESIUM - SERUM 2.1 mg/dL (1.8-2.4); PROTEIN - SERUM 5.6 g/dL (6.4-8.2); VANCOMYCIN - RANDOM 27.2 ug/mL (10.0-20.0)
--- NOTE | 2016-10-23 07:00 | NUR ---
REPORT RECEIVED. ASSESSMENT COMPLETED. NO VISUAL CUES OF DISTRESS NOTED.
--- NOTE | 2016-10-23 07:18 | NUR ---
DR KLINE HERE TO SEE PATIENT. PER HIS REQUEST, GALE TURNED OFF. WILL MONITOR.
--- NOTE | 2016-10-23 08:02 | NUR ---
ATIVAN GIVEN FOR ANXIETY IN ATTEMPTS TO CALM THE PATIENT AND KEEP HER OFF THE DIPROVAN.
--- NOTE | 2016-10-23 08:23 | NUR ---
DR KLINE SPOKE WITH THE SPOUSE. THE SPOUSE UNDERSTANDS FULLY THE PATIENTS CONDITION. HE TOLD DR KLINE THAT HIS BIRTHDAY IS TOMORROW AND HE DID NOT REALLY WANT TO ASSOCIATE A TERMINAL EXTUBATION WITH HIS BIRTHDAY. OF WHICH WE BOTH UNDERSTAND. WILL CONTINUE TO PROVIDE SUPPORT TO THE FAMILY.
--- NOTE | 2016-10-23 09:27 | NUR ---
WRIST RESTRAINTS REMOVED, STOOD BY BED FOR 15 MINUTES. PATIENT MAD NO ATTEMPT TO PULL AT TUBING. WILL MONITOR.
--- NOTE | 2016-10-23 09:54 | NUR ---
Nutrition follow-up: Chart reviewed Intubated, sedated with propofol Pulmocare continues @ 30 ml/hr Wt: 219# RDN following.
--- NOTE | 2016-10-23 10:05 | NUR ---
PATIENT NOT DOING WELL ON CPAP TRIALS. SINCE THERE IS TALK OF TERMINAL EXTUBATION, DR MONTES SAID TO STOP THE TRIALS FOR NOW AND START HER SEDATION BACK, TO KEEP HER COMFORTABLE.
--- NOTE | 2016-10-23 10:44 | NUR ---
PATIENTS RR REMAINS IN THE 40'S. ATTEMPTS TO INCREASE SEDATION HAS DECREASED THE BLOOD PRESSURE. WILL BACK OFF THE PROPOFOL AND ATIVAN WAS GIVEN JUST A LITTLE EARLY. HAS BEEN DISCUSSED WITH DR MONTES AND RESPIRATORY.
--- NOTE | 2016-10-23 19:00 | NUR ---
REPORT REC'D, ASSUMED PATIENT CARE. ASSESSMENT COMPLETED. SEE FLOW SHEETS FOR ALL FINDINGS. PT SEDATED ON VENT AROUSES EASILY WITH STIMULATION. NO COMMANDS FOLLOWS. ST ON CM WITH HR AT 105, LUNG SOUNDS CRACKLES TO ULB WITH DIMINISHED TO LLB. RT UA PICC LINE INTACT INFUSING D5 AT 75 AND PROPOFOL AT 25MCG/HR VIA PUMP. REBOLLEDO INTACT BY GRAVITY WITH DEMARIO DRAINAGE TO BAG.PPP. FOOT DROP IN USE BILAT. OVERLAY BED IN USE. CONT DROPLETS INSOLATION PER PROTOCOL. WILL CONT TO MONITOR.
--- NOTE | 2016-10-23 21:00 | NUR ---
NO VISITORS AT THIS TIME. MOUTH CARE AND SUCTION PER VAP PROVIDED. REPOSITIONED FOR COMFORT. CPOC.
--- NOTE | 2016-10-23 23:00 | NUR ---
REASSESSMENT COMPLETED. SEE FLOW SHEETS FOR ALL FINDINGS.NO ACUTE CHANGES NOTED IN PT' STATUS AT THIS TIME. NSR ON MONITOR WITH HR AT 98. CONT SEDATION PER ORDER FOR COMFORT ON VENT. MOUTH CARE AND REPOSITONED DONE. PILLOWS IN USE FOR SUPPORT. HOB UP. WILL CONT TO MONITOR.
[2016-10-24] VITALS (24 sets, daily range): BP systolic 80–119; BP diastolic 41–63
--- NOTE | 2016-10-24 01:00 | NUR ---
PT SEDATED ON VENT RESTING QUIETLY WITHOUT DISTRESS. VSS.
--- NOTE | 2016-10-24 03:00 | NUR ---
REASSESSMENT COMPLETED PER FLOW SHEETS. PT SEDATED ON VENT COUGHING AND BREATHING OVER VENT. RR TO 40S. ATIVAN 1MG IVP GIVEN PER ORDER. REPOSITIONED FOR COMFORT. SUCTIONED AND MOUTH CARE PROVIDED PER VAP. ST ON CM. CPOC.
--- NOTE | 2016-10-24 05:30 | NUR ---
REPOSITONED FOR COMFORT, ORAL CARE PROVIDED,
--- NOTE | 2016-10-24 06:57 | EEG ---
PATIENT:MARK CASTREJON DATE OF SERVICE: 08/21/16 MEDICAL RECORD: [id number] DATE OF : 57 LOCATION:D.230 D.ICU ADMISSION DATE: 08/21/16 REFERRING PHYSICIAN: INTERPRETING PHYSICIAN: CARLOS KLINE MD DATE OF SERVICE: 10/16/2016 Electroencephalographic Report REFERRED BY: Myself as an inpatient, currently in room 2214. ELECTROENCEPHALOGRAM NUMBER: [id number]. DATE OF EXAMINATION: 10/16/16 at 10:15 a.m. TECHNICAL DATA: This electroencephalographic recording consists of approximately 20 minutes of data collection utilizing the international 10/20 system of electrode placement and both referential and non-referential montages. Sixteen channels of electrocerebral recording are accompanied by a 17th channel dedicated to the electrocardiographic rhythm and 2 channels of electromyographic recording. Recording is performed in the lethargic state utilizing activation by photic stimulation. ELECTROENCEPHALOGRAPHIC DATA: The entirety of the recorded electrocerebral activity is performed in the lethargic state. Electromyographic artifact remains prominent at times. Rapid eye movements are rarely seen. The posterior dominant background has not developed. During periods of agitation, moaning and crying, electromyographic and movement artifacts obscure much of the recorded electrocerebral activity. Intervals of relative quiet are monotonous and consists of a mixture of slow wave activities that are irregular in morphology, generalized and symmetric in distribution ranging from 1-2 Hz in the delta range to 5-6 Hz in the theta range. No focal slowing is identified. No epileptiform discharges are observed. Photic stimulation induces no abnormal change in the recorded electrocerebral activity. INTERPRETATION: Continuous slow, generalized (lethargy). This electroencephalographic recording is indicative of a moderate diffuse encephalopathy. TRANSINT:[id number] Voice Confirmation ID: [id number] DOCUMENT ID: [id number] ELECTROENCEPHALOGRAM REPORT [id number] MARK CASTREJON CARLOS KLINE MD at 0657 CC: [id number] DICTATION DATE: 10/17/16 0655 BARREL PLANER: 10/17/16 1033 ADM IN [place] [id number] [place] [address]
--- NOTE | 2016-10-24 07:30 | NUR ---
CALLED OUT TO WAITING ROOM, PATIENTS SPOUSE AND SISTER IN LAW WANTED TO SPEAK WITH ME. THEY QUESTIONED TO IF WE COULD TERMINALLY EXTUBATE TOMORROW AT 0600. THEY ALSO WANTED TO REREVIEW THE OPTIONS AFTER EXTUBATION TOMORROW. AFTER TALKING THEY REQUESTED TO SPEAK TO HOSPICE TODAY AROUND 1000 IF POSSIBLE. DISCUSSED THE DIFFERENT HOSPICES WE HAVE HERE IN [facility]. EXPLAINED THAT [facility] HAS A GIP CONTRACT HERE WITH THIS HOSPICE AND THAT [facility] HAS A GIP UNITE AT [facility]. DISCUSSED THAT [facility] HAS A GIP UNIT IN [place] AND THAT I WAS UNSURE IF [facility] HAD A GIP UNIT. THE SPOUSE REQUESTED TO SPEAK WITH [facility]. HE STATED THAT HE HAS MADE ARRANGEMENTS WITH [facility] YESTERDAY. EXPLAINED THAT I WOULD SPEAKE WITH CASE MANAGEMENT, THE DOCTORS, AND THE RESPIRATORY THERAPIST AND WE WOULD GET EVERYTHING LINED OUT. EXPLAINED THAT I WOULD LET THEM KNOW IF THAT TIME WAS NOT A GOOD TIME. PATIENTS SPOUSE IS VERY TERARFUL AT THIS TIME. EXPLAINED IF HE NEEDED SOME EXTRA TIME WITH HER TODAY THAT I WOULD OVER LOOK THE VISITING HOURS FOR HIM. HE STATED THAT HE APPRECIATED THAT, BUT HE REALLY COULD BARELY HANDLE THE 20 MINUTES SEEING HER LIKE THAT. EXPLAINED THAT IF HE CHANGED HIS MIND TO JUST LET ME KNOW.
[2016-10-24 07:39] LABS: CALC OSMOLALITY 295 mosm/kg (275-300); CALCIUM 7.6 mg/dL (8.5-10.1); CARBON DIOXIDE 22.5 mmol/L (21.0-32.0); CHLORIDE - SERUM 93 mmol/L (98-107); CREATININE - SERUM 4.3 mg/dL (0.6-1.3); GLUCOSE 157 mg/dL (74-106); MAGNESIUM - SERUM 2.2 mg/dL (1.8-2.4); PHOSPHOROUS 7.7 mg/dL (2.5-4.9); POTASSIUM - SERUM 5.5 mmol/L (3.5-5.1); SODIUM 132 mmol/L (136-145); UREA NITROGEN 90 mg/dL (7-18); eGFR NON AFRICAN AMERICAN 11 mL/min (90-120)
[2016-10-24 07:40] LABS: ALKALINE PHOSPHATASE 110 U/L (46-116); ALT (SGPT) 244 U/L (10-68); BILIRUBIN - TOTAL 0.48 mg/dL (0.2-1.3); PROTEIN - SERUM 5.5 g/dL (6.4-8.2); VANCOMYCIN - TROUGH 20.1 ug/mL (10.0-20.0)
--- NOTE | 2016-10-24 07:48 | NUR ---
DURING PREVIOUS CONVERSATION WITH THE PATIENTS SPOUSE, DID DISCUSS WITH HIM ABOUT PUTTING IN ANOTHER CENTRAL LINE SO THAT WE COULD DRAW LABS SECONDARY TO NOT BEING ABLE TO GET SPECIMINES WITH STICKS. THE SPOUSE DID NOT WANT TO PUT HER THROUGH THIS.
--- NOTE | 2016-10-24 07:49 | NUR ---
SPOKE WITH RUBY IN [facility] ABOUT PATIENTS SPOUSES WISHES. SHE STATED THAT SHE WOULD GET WITH [facility] TO COME AND MEET WITH THE SPOUSE.
[2016-10-24 07:58] LABS: HEMATOCRIT 29.8 % (36.0-48.0); HEMOGLOBIN 9.8 g/dL (12-16); LYMPHOCYTES 13.9 % (15-50); MCH 28.7 pg (26.0-34.0); MCHC 32.9 g/dL (31.0-37.0); MEAN PLATELET VOLUME 9.4 fL (7.4-10.4); NEUTROPHILS 82.7 % (40-80); RBC 3.41 10x6/uL (4.00-5.40); RDW 21.7 % (11.5-14.5); WBC 11.4 10x3/uL (4.8-10.8)
[2016-10-24 08:00] LABS: MCV 87.4 fL (80.0-100.0); PLATELET COUNT 75 10x3/uL (130-400)
--- NOTE | 2016-10-24 08:21 | NUR ---
10/24/2016 8:12 CM: Case Management POC discussed with Dr. Montes late yesterday afternoon - Very poor prognosis - physicians have met with family & they are planning terminal extubation 10/25. Rec'd call this morning from Yessica LEWIS - family requesting to meet with motor vehicle representative from [facility] this morning at 1000. Referral faxed and called to Angelina Kerr with [facility] - rep will be here at 1000.
[2016-10-24 08:22] LABS: HEPATITIS C ANTIBODY <0.1 (0.0-0.9)
[2016-10-24 08:27] LABS: PLATELET ESTIMATE DECREASED
--- NOTE | 2016-10-24 10:30 | NUR ---
[facility] HERE TO TALK WITH MR CASTREJON ABOUT HOSPICE. TOOK THEM INTO THE FAMILY ROOM. ENCOURAGED THEM TO COME GET ME IF THEY NEEDED ANYTHING.
--- NOTE | 2016-10-24 11:03 | NUR ---
HOSPICE NURSES STATED THAT THEY HAVE DISCUSSED HOSPICE AND IF HE DECIDES AFTER THE TERMINAL EXTUBATION IN THE MORNING THAT HE WANTS HOSPICE, TO JUST GIVE THEM A CALL. THEY WILL HAVE THE LEGALS READY FOR HIM TO SIGN AND WILL GET HER ADMITTED. WILL PASS THIS ALONG TO THE NIGHT NURSE.
--- NOTE | 2016-10-24 17:14 | NUR ---
PATIENTS RESPIRATIONS UP IN THE 40'S. ATIVAN GIVEN PER PRN ORDERS.
--- NOTE | 2016-10-24 19:15 | NUR ---
RECEIVED CARE OF PT, ASSESSMENT PER FLOWSHEET. PT INTUBATED AND SEDATED ON VENT, PPP, HR SR AT A RATE OF 92 ON CM, CRACKLES ASCULTATED BILATERALLY WITH DIMINISHED BASES, OGT WITH PULMOCARE INFUSING AT 35 CC/HR, PLACEMENT VERIFIED WITH SMALL AIR BOLUS, REBOLLEDO CATH PATENT, PT POSITIONED FOR COMFORT, ORAL CARE AND SUCTIONING PROVIDED, WILL MONITOR.
--- NOTE | 2016-10-24 21:05 | NUR ---
NO VISITORS PRESENT AT THIS TIME, PT POSITIONED FOR COMFORT, VSS.
--- NOTE | 2016-10-24 23:15 | NUR ---
REASSESSMENT PER FLOWSHEET, NO ACUTE CHANGES NOTED AT THIS TIME, CONT POC.
[2016-10-25] VITALS (12 sets, daily range): BP systolic 97–145; BP diastolic 53–65
--- NOTE | 2016-10-25 00:45 | NUR ---
PT REPOSITIONED FOR COMFORT, ORAL CARE AND SUCTIONING PROVIDED, VSS/
--- NOTE | 2016-10-25 03:00 | NUR ---
REASSESSMENT PER FLOWSHEET, PT REPOSITIONED FOR COMFORT, ORAL CARE AND SUCTIONING PROVIDED. VSS
--- NOTE | 2016-10-25 06:05 | NUR ---
PT AND FAMILY AT BEDSIDE, DENY ANY NEEDS AT THIS TIME.
--- NOTE | 2016-10-25 06:25 | NUR ---
PT WISHES TO PROCEED WITH TERMINAL EXTUBATION, VERBALIZES UNDERSTANDING OF PROCESS. MORPHINE 4 MG ADMINSTERED PER MD ORDER.
--- NOTE | 2016-10-25 06:43 | NUR ---
PT EXTUBATED TO 2L NC, OGT D/C'D WITH TIP INTACT PER MD ORDER.
--- NOTE | 2016-10-25 06:51 | NUR ---
PT AND FAMILY AT BEDSIDE, ALL DENY ANY NEEDS AT THIS TIME.
--- NOTE | 2016-10-25 08:19 | NUR ---
FAMILY AT BEDSIDE. NOTED AUDIBLE SOUNDS WHICH SOUNDED LIKE WIMPERING, PRN MORPHINE ADMIN AT THIS TIME. AFTER PRN MORPHINE ADMIN WIMPERING SOUNDS HAD STOPPED AND PT APPEARED TO BE MORE COMFORTABLE. WILL CONTINUE TO OBSERVE.
--- NOTE | 2016-10-25 08:44 | NUR ---
NOTED HOSPICE CONSULT. WILL NOTIFY CASE MANAGEMENT WHEN THEY ARRIVE FOR CONSULT. WILL CONTINUE PLAN OF CARE.
--- NOTE | 2016-10-25 10:52 | NUR ---
FAMILY AT BEDSIDE. NO CHANGE AT THIS TIME. HOSPICE NURSE IS HERE WITH PT AND FAMILY PROCESSING ORDERS. WILL CONTINUE PLAN OF CARE.
== END 2016-10-25 12:53 | disposition hospice, inpatient (51) | DRG 40 ==
LOC: D.ER 12:24 → D.ICU 18:22 → D.MS 18:22 → D.CVICU 18:22 → D.ICU 08-22 14:40 → D.MS 08-25 18:42 → D.ICU 09-11 21:31 → D.MS 09-13 15:24 → D.ICU 10-19 12:51
PROVIDERS: Emergency Medicine; Family Medicine; General Practice; Internal Medicine Nephrology; Internal Medicine Pulmonary Disease; Psychiatry & Neurology Neurology; Radiology Diagnostic Radiology; Surgery; ADMIT Family Medicine
PROC: 009U3ZX Drainage of Spinal Canal, Percutaneous Approach, Diagnostic (ICD-10-PCS; principal; 2016-08-22 14:15)
PROC: 06H03DZ Insertion of Intraluminal Device into Inferior Vena Cava, Percutaneous Approach (ICD-10-PCS; 2016-09-03)
PROC: B5191ZZ Fluoroscopy of Inferior Vena Cava using Low Osmolar Contrast (ICD-10-PCS; 2016-09-03)
PROC: 02HV33Z Insertion of Infusion Device into Superior Vena Cava, Percutaneous Approach (ICD-10-PCS; 2016-09-04)
PROC: B548ZZA Ultrasonography of Superior Vena Cava, Guidance (ICD-10-PCS; 2016-09-04)
PROC: B3131ZZ Fluoroscopy of Right Common Carotid Artery using Low Osmolar Contrast (ICD-10-PCS; 2016-09-18)
PROC: B31G1ZZ Fluoroscopy of Bilateral Vertebral Arteries using Low Osmolar Contrast (ICD-10-PCS; 2016-09-18)
PROC: B3171ZZ Fluoroscopy of Left Internal Carotid Artery using Low Osmolar Contrast (ICD-10-PCS; 2016-09-18)
PROC: B3131ZZ Fluoroscopy of Right Common Carotid Artery using Low Osmolar Contrast (ICD-10-PCS; 2016-09-18)
PROC: B31G1ZZ Fluoroscopy of Bilateral Vertebral Arteries using Low Osmolar Contrast (ICD-10-PCS; 2016-09-18)
PROC: B3171ZZ Fluoroscopy of Left Internal Carotid Artery using Low Osmolar Contrast (ICD-10-PCS; 2016-09-18)
PROC: B01B1ZZ Fluoroscopy of Spinal Cord using Low Osmolar Contrast (ICD-10-PCS; 2016-09-19)
PROC: 009U3ZX Drainage of Spinal Canal, Percutaneous Approach, Diagnostic (ICD-10-PCS; 2016-09-19)
PROC: 3E05317 Introduction of Other Thrombolytic into Peripheral Artery, Percutaneous Approach (ICD-10-PCS; 2016-10-14)
PROC: 5A1955Z Respiratory Ventilation, Greater than 96 Consecutive Hours (ICD-10-PCS; 2016-10-19)
DX: I67.7 Cerebral arteritis, not elsewhere classified (principal); I67.83 Posterior reversible encephalopathy syndrome; J96.01 Acute respiratory failure with hypoxia; J18.9 Pneumonia, unspecified organism; I63.9 Cerebral infarction, unspecified; G93.49 Other encephalopathy; N17.0 Acute kidney failure with tubular necrosis; J44.1 Chronic obstructive pulmonary disease with (acute) exacerbation; I82.492 Acute embolism and thrombosis of other specified deep vein of left lower extremity; K92.1 Melena; E80.21 Acute intermittent (hepatic) porphyria; I50.32 Chronic diastolic (congestive) heart failure; J44.0 Chronic obstructive pulmonary disease with (acute) lower respiratory infection; E87.0 Hyperosmolality and hypernatremia; R27.0 Ataxia, unspecified; E11.9 Type 2 diabetes mellitus without complications; M06.9 Rheumatoid arthritis, unspecified; M32.9 Systemic lupus erythematosus, unspecified; G47.33 Obstructive sleep apnea (adult) (pediatric); K21.9 Gastro-esophageal reflux disease without esophagitis; G40.909 Epilepsy, unspecified, not intractable, without status epilepticus; K59.00 Constipation, unspecified; Y95 Nosocomial condition; E78.5 Hyperlipidemia, unspecified; G25.81 Restless legs syndrome; D64.9 Anemia, unspecified; I70.8 Atherosclerosis of other arteries; E87.6 Hypokalemia; I11.0 Hypertensive heart disease with heart failure; G89.29 Other chronic pain; F41.9 Anxiety disorder, unspecified; Z88.0 Allergy status to penicillin; Z91.030 Bee allergy status; Z87.891 Personal history of nicotine dependence

== ENCOUNTER 2016-10-25 11:29 | Inpatient (IN) | payer OTHER ==
[~2016-10-25] VITALS: Ht 172.7 cm; Wt 102.7 kg
[~2016-10-25 11:29] MED LIST: CALAN SR240 MG; CALAN SR240 MG PO; CELEBREX200 MG; CIPRO500 MG; FERROUS SULFAT140 MG; FERROUS SULFAT325 MG PO; FOLIC ACID1 MG PO; GLUCOPHAGE500 MG PO; K-TAB10 MEQ PO; KLOR-CON 1010 MEQ PO; LEVAQUIN750 MG PO; LEXAPRO10 MG PO; LIPITOR20 MG PO; LYRICA150 MG PO; OMEPRAZOLE20 M1; OMEPRAZOLE20 M1 PO; PLAQUENIL200 MG PO; PREDNISONE5 MG PO; PRINIVIL20 MG; RESTORIL15 MG PO; SINGULAIR10 MG; SKELAXIN800 MG PO; TOPROL XL100 MG PO; TRIAMTERENE-HCT1 TA1; ULTRAM50 MG PO
[2016-10-25 12:00] VITALS: BP 111/55
[2016-10-25 13:00] VITALS: BP 121/55
[2016-10-25 14:00] VITALS: BP 109/52
[2016-10-25 14:02] VITALS: BP 121/55; Ht 172.7 cm; Wt 102.7 kg
--- NOTE | 2016-10-25 14:21 | NUR ---
NO CHANGE. PT MOANS AT TIMES TO DISCOMFORT. RECIEVES MORPHINE WRAPPING CLERK AT THIS TIME FOR DISCOMFORT WELL PRN ATIVAN FOR IRRIATION. PT TURNED Q2H. FAMILY AT BEDSIDE. WILL CONTINUE PLAN OF CARE.
--- NOTE | 2016-10-25 15:30 | NUR ---
REPORT GIVEN TO YARA FOR PT TO TRANSFER TO ROOM 2130. WILL TRANSFER PT VIA BED SHORTLY TO ROOM.
--- NOTE | 2016-10-25 16:06 | NUR ---
PT TRANSFERRED AT THIS TIME TO [facility] 2. FAMILY AT BEDSIDE. NO CHANGE. PT TURNED AND LINEN CHANGE HAD BEEN PROVIDED BEFORE TRANSFER. NO FURTHER ACTIONS.
--- NOTE | 2016-10-25 16:46 | NUR ---
RECIEVED FROM ICU. PT IS IN DROPLET ISOLATION. PT IS A DNR AND ON HOSPICE. O2 AT 2 L/M PER NC. REBOLLEDO CATH TO BEDSIDE DRAINAGE. RECTAL TUBE IN PLACE. RIGHT UPPER ARM PICC LINE. PT IS ON A MORPHINE DRIP. CHEEKS HAVE SKIN TEARS TO BOTH SIDE. BUTTOCKS ARE RED. DVT TO LEFT LEG. FAMILY AT BEDSIDE. WITH CALL LIGHT IN REACH
--- NOTE | 2016-10-25 19:47 | NUR ---
RESUMED CARE OF PT, FAMILY AT BEDSIDE, DENIES ANY NEEDS AT THIS TIME, CALL LIGHT IN REACH, WILL CONTINUE CARE OF PLAN
[2016-10-25 20:32] VITALS: BP 144/55
--- NOTE | 2016-10-26 00:20 | NUR ---
JET WIPER AT BED SIDE TO OBTAIN VITALS. WILL CONT PLAN OF CARE.
--- NOTE | 2016-10-26 02:25 | NUR ---
FAMILY CAME OUT AND SAID THEY THINKS SHE JUST PASSED, WENT TO SEE HEARD NO HEARTBEAT, FELT NO PULSE
--- NOTE | 2016-10-26 02:32 | NUR ---
SPOKE WITH RAYSA AT HOSPICE
--- NOTE | 2016-10-26 02:35 | NUR ---
PAGED DR. CHEUNG
--- NOTE | 2016-10-26 02:48 | NUR ---
SECOND CALL TO DR. CHEUNG OFFICE
--- NOTE | 2016-10-26 03:00 | NUR ---
PAGED DR. CHEUNG AGAIN
--- NOTE | 2016-10-26 03:29 | NUR ---
PAGE THUR ANSWERING SERVICE
--- NOTE | 2016-10-26 03:55 | NUR ---
ANSWERING SERVICE CALLED TO SEE IF WE HAD BEEN CALL YET
--- NOTE | 2016-10-26 04:00 | NUR ---
RAYSA FROM HOSPICE GOT HERE
--- NOTE | 2016-10-26 07:11 | NUR ---
[facility] NOTIFIED OF PT PER HOSPICE NURSE
--- NOTE | 2016-10-26 08:10 | NUR ---
BODY RELEASED TO ISIAH SOUZA AT THIS TIME
--- NOTE | 2016-10-26 09:00 | NUR ---
MORPHINE SAW MAKER WASTED 25 MG/ML WITNESSED BY ANTOINETTE VÁZQUEZ RN
== END 2016-10-26 08:10 | DRG 951 ==
LOC: D.ICU 11:29 → D.M2 15:58
PROVIDERS: ADMIT Legal Medicine
DX: Z51.5 Encounter for palliative care (principal)